=== PATIENT | male | born 1955 | race Caucasian/White ===

== ENCOUNTER 2017-12-08 09:09 | Emergency (ER) | payer MEDICARE, MEDICAID ==
[2017-12-08 10:38] LABS: #Eosinphils 0.4 thou/uL (0.0-0.7); #Lymphocytes 2.1 thou/uL (1.20-3.40); #Monocytes 0.9 thou/uL (0.11-0.59); #Neutrophils 11.1 thou/uL (1.40-6.50); %Basophils 0.3 % (0.0-1.0); %Eosinophils 2.9 % (0.0-10.0); %Lymphocytes 14.3 % (21.0-51.0); %Monocytes 6.4 % (0.0-10.0); %Neutrophils 76.1 % (42.0-75.0); Hemoglobin 11.9 g/dL (14.0-18.0); Mean Corpuscular Hemoglobin 29.3 pg (27.0-31.0); Mean Corpuscular Volume 86.1 fl (80.0-94.0); Mean Platelet Volume 6.9 fL (7.4-10.4); Platelet Count 354 thou/uL (130-400); RBC Distribution Width 12.5 % (11.5-14.5); Red Blood Cell (RBC) Count 4.07 mill/uL (4.70-6.10); White Blood Cell (WBC) Count 14.6 thou/uL (4.8-10.8)
[2017-12-08 11:00] LABS: ALT (SGPT) 22 U/L (8-55); AST (SGOT) 18 U/L (5-34); Alkaline Phosphatase 94 U/L (40-150); Anion Gap 14 mmol/L (10-20); BUN (Urea Nitrogen) 14 mg/dL (8.4-25.7); Bilirubin, Total 0.2 mg/dL (0.2-1.2); Calc. Creatinine Clearance 0 mL/min (70-130); Calcium 9.5 mg/dL (7.8-10.44); Carbon Dioxide 23 mmol/L (23-31); Chloride 104 mmol/L (98-107); Estimated GFR-MDRD Greater than 90; Globulin 3.8 g/dL (2.4-3.5); Glucose 114 mg/dL (80-115); Potassium 4.4 mmol/L (3.5-5.1); Protein, Total 7.8 g/dL (5.8-8.1); Sodium 137 mmol/L (136-145)
[2017-12-08 11:09] LABS: INR-International Normal Ratio 1.1
--- NOTE | 2017-12-08 12:00 | RAD ---
LEFT FOOT THREE VIEWS: HISTORY: Evaluate wound. Erythema and swelling. COMPARISON: 11/09/2016 FINDINGS: There is a solitary screw traversing the first interphalangeal joint space. No obvious perihardware lucency. However, there does appear to be soft tissue swelling. No obvious cortical irregularity. Lisfranc alignment is maintained. Joint space is preserved. Stable hyperdensity partaking over the proximal fourth metatarsal. Foreign body cannot be excluded. IMPRESSION: 1. Uncomplicated surgical change involving the first digit. 2. Soft tissue swelling involving the first digit. Correlate for cellulitis. POS: [facility]
== END 2017-12-08 13:10 | disposition home or self-care (01) ==
LOC: ERS 09:09
DX: E11.628 Type 2 diabetes mellitus with other skin complications (principal); L03.032 Cellulitis of left toe; E78.5 Hyperlipidemia, unspecified; I10 Essential (primary) hypertension
CPT/HCPCS: 36415; 80053; 85025; 85610; 87040; 87149

== ENCOUNTER 2018-03-05 18:37 | Inpatient (IN) | payer MEDICARE, MEDICAID ==
[2018-03-05 19:28] LABS: #Basophils 0.1 thou/uL (0.0-0.2); #Eosinphils 0.3 thou/uL (0.0-0.7); #Lymphocytes 2.9 thou/uL (1.20-3.40); %Basophils 0.4 % (0.0-1.0); %Eosinophils 2.4 % (0.0-10.0); %Lymphocytes 21.8 % (21.0-51.0); %Monocytes 7.5 % (0.0-10.0); %Neutrophils 67.9 % (42.0-75.0); Hemoglobin 11.2 g/dL (14.0-18.0); Mean Corpuscular HGB CONC 34.7 g/dL (32.0-36.0); Mean Corpuscular Volume 86.5 fl (80.0-94.0); Mean Platelet Volume 6.9 fL (7.4-10.4); Platelet Count 342 thou/uL (130-400); Red Blood Cell (RBC) Count 3.71 mill/uL (4.70-6.10); White Blood Cell (WBC) Count 13.3 thou/uL (4.8-10.8)
[2018-03-05] MEDS ORDERED: MEROPENEM 1 GM/50 ML 1 GM in Premix Bag 1 BAG IVPB SCH (19:30)
--- NOTE | 2018-03-05 19:48 | RAD ---
RIGHT FOOT: 03/05/18 Three views. INDICATIONS: Right great toe pain. Post right great toe amputation. Amputation of the right great toe is seen from the proximal aspect of the proximal phalanx. No osseou s abnormality identified. There is no osseous erosions seen that would indicate osteomyelitis. Soft t issues appear unremarkable. IMPRESSION: No acute abnormality identified. POS: [facility]
[2018-03-05 19:49] LABS: ALT (SGPT) 25 U/L (8-55); AST (SGOT) 12 U/L (5-34); Alkaline Phosphatase 87 U/L (40-150); Anion Gap 11 mmol/L (10-20); BUN (Urea Nitrogen) 16 mg/dL (8.4-25.7); Bilirubin, Total 0.2 mg/dL (0.2-1.2); Calc. Creatinine Clearance 0 mL/min (70-130); Calcium 9.3 mg/dL (7.8-10.44); Carbon Dioxide 24 mmol/L (23-31); Chloride 104 mmol/L (98-107); Estimated GFR-MDRD Greater than 90; Globulin 3.6 g/dL (2.4-3.5); Glucose 171 mg/dL (80-115); Potassium 4.3 mmol/L (3.5-5.1); Protein, Total 7.6 g/dL (5.8-8.1); Sodium 135 mmol/L (136-145)
[2018-03-05 21:08] VITALS: BMI 37.4
[2018-03-06] MEDS ORDERED: Ondansetron HCl/PF 4 MG/2 ML Vial IVP PRN ×2 (03:16→10:56)
[2018-03-06] MEDS ORDERED: Ondansetron ODT 4 MG TAB SL PRN ×2 (03:16→10:56)
[2018-03-06] MEDS ORDERED: Sodium Chloride 0.9% 1,000 ML IV SCH (03:16)
[2018-03-06] MEDS ORDERED: MEROPENEM 1 GM/50 ML 1 GM in Premix Bag 1 BAG IVPB SCH (04:00)
[2018-03-06] MEDS ORDERED: Dextrose 50% Abboject 50 ML SYRINGE IVP PRN (10:57)
[2018-03-06] MEDS ORDERED: Dextrose 5% in Water 1,000 ML IV PRN (10:57)
--- NOTE | 2018-03-06 11:49 | HP ---
DATE OF ADMISSION: 03/05/2018 CHIEF COMPLAINT: Erythema of the right foot. HISTORY OF PRESENT ILLNESS: This is a 62-year-old mentally retarded male patient of Dr. Devon almanzar who resides at [facility], has been there for over 10 years. Patient melton d an amputation of his right great toe in 12/2015. Since that time, he has had a couple of bouts of erythema over the remainder toes, but has been treated with antibiotics solely. He had an admission for such in 2016. It was noted this weekend by the nurses on the floor to have a return of the eryth felicity and more swelling of the foot. The patient's diabetic neuropathy impedes his sensation to pain t o the area. They have noted no fever or drainage from the area. 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 PAST SURGICAL HISTORY: Positive for right great toe amputation in 2015, carpal tunnel repair in 2010 , right inguinal herniorrhaphy in 2004. ALLERGIES: There are no known drug allergies. MEDICATIONS: Levemir 100 units in the morning and 120 units at night, NovoLog sliding scale, metform in 1000 mg b.i.d., Januvia 100 mg daily, lisinopril 20 mg daily, Lipitor 20 mg daily, Prilosec 20 mg daily, Flomax 0.4 mg daily and he also takes B12 100 mcg daily. FAMILY HISTORY: Essentially is unknown. Both his parents have passed. He has 3 brothers and 2 sist ers that are alive per the office note, but the patient has poor knowledge. SOCIAL HISTORY: He lives at [facility]. No toxic habits. All immunizations are up to date. REVIEW OF SYSTEMS: There is no evidence of fever or chills and he denies any headache or visual shaw ges, no troubles chewing or swallowing. No chest pain, shortness of breath, no cough. No nausea or vomiting, no abdominal pain, denies any changes in bowel or bladder habits. No diarrhea, constipatio n, no dysuria or hematuria. Denies any new paresthesias. Denies any paresis. Denies any auditory o r visual hallucinations. Denies any suicidal or homicidal ideations. PHYSICAL EXAMINATION: GENERAL: He is comfortable in bed. He is very pleasant and cooperative. VITAL SIGNS: Temperature 97.7, pulse 73, respirations 18, blood pressure is 124/72. HEENT: Shows a normocephalic, atraumatic cranium with pupils that are equal, round, and reactive to light and accommodation. Extraocular movements are intact. Mucous membranes are moist. NECK: Supple, no JVD, no bruits, no thyromegaly. HEART: S1, S2, with no rubs, murmurs, or gallops. LUNGS: Clear to auscultation bilaterally, no rales, rhonchi or wheezes. ABDOMEN: Obese, soft, nontender, nondistended, no palpable masses, no hepatosplenomegaly. Bowel araceli nds are hypoactive. GENITOURINARY: Exam is deferred. EXTREMITIES: Able to move all extremities. Poor movement of the toes on the right foot; however, pu lses are palpable, x4. There is slight erythema to the right foot, especially at the base of the sec ond, third, and fourth toes with some edema accompanying that there is no drainage to the previous mckeon rgical scar of his right amputation, still has some crusty healing to it. The left foot has some chr onic ulcerations to the great toe. Neurologically, he has poor sensation in both legs below the calf . NEUROLOGIC: Cranial nerves II-XII are equal and symmetrical. No motor deficits noted. LABORATORY DATA AND X-RAY FINDINGS: White count is elevated at 13.3 with an H&H of 11 and 32 respect ively, 342,000 platelets. Sodium 135, potassium 4.3, chloride 104, bicarbonate is 24, BUN 16, creati nine 0.67, glucose of 171. The GFR is greater than 90. Liver functions are within normal limits. C RP is elevated at 4.18. Foot x-ray shows no fractures, but looks like osseous erosions consistent wi th osteomyelitis beginning. ASSESSMENT AND PLAN: Plan is to admit due to the erythema, peripheral arterial disease and osteomyel itis, likely continue antibiotics that were started in the emergency room. We will get an MRI in [facility] and go for a decision on surgical consult after those are resulted.
[2018-03-06] MEDS: MEROPENEM 1 GM/50 ML 1 GM in Premix Bag 1 BAG IVPB SCH ×2 (12:24→20:24)
[2018-03-06] MEDS: HumaLOG 300 UNITS/3 ML VIAL SC PRN ×2 (12:27→17:12)
--- NOTE | 2018-03-06 12:50 | MRI ---
RIGHT FOOT MRI WITH AND WITHOUT IV CONTRAST: Date: 03/06/18 HISTORY: 62-year-old male with history of infected right foot, diabetic cellulitis, nonhealing ulcer. Concern for right great toe. FINDINGS: The patient has undergone amputation of the right great toe at the level of the base of the proximal phalanx. There is some heterogeneous signal within the soft tissues around the great toe distally and also on the plantar aspect. No evidence for abnormal marrow signal to suggest osteomyelitis. No evid ence for focal drainable abscess. There are some arthrosis changes at the first metatarsophalangeal j oint. The flexor hallucis tendon is thickened and has some increased signal probably related to the p rior amputation. Intrinsic foot muscles show considerable muscle volume loss. IMPRESSION: Amputation of the great toe at the level of the base of the proximal phalanx with some altered soft t issue changes of the distal amputation site and the plantar surface at the first metatarsophalangeal joint region. No evidence for drainable abscess. No osteomyelitis. POS: [facility]
[2018-03-06] MEDS: Tamsulosin HCl 0.4 MG CAP PO SCH (17:12)
[2018-03-06] MEDS: Atorvastatin Calcium 20 MG TAB PO SCH (20:24)
[2018-03-06] MEDS: Insulin Glargine 100 UNITS in Pre-Filled Syringe 1 EACH SC SCH (20:24)
[2018-03-07] MEDS: MEROPENEM 1 GM/50 ML 1 GM in Premix Bag 1 BAG IVPB SCH ×3 (03:32→20:31)
[2018-03-07 04:44] LABS: #Eosinphils 0.4 thou/uL (0.0-0.7); #Monocytes 0.9 thou/uL (0.11-0.59); #Neutrophils 7.1 thou/uL (1.40-6.50); %Basophils 0.4 % (0.0-1.0); %Eosinophils 3.2 % (0.0-10.0); %Lymphocytes 26.6 % (21.0-51.0); %Monocytes 8.1 % (0.0-10.0); %Neutrophils 61.7 % (42.0-75.0); Hemoglobin 12.1 g/dL (14.0-18.0); Mean Corpuscular HGB CONC 34.1 g/dL (32.0-36.0); Mean Corpuscular Hemoglobin 29.5 pg (27.0-31.0); Mean Corpuscular Volume 86.7 fl (80.0-94.0); Mean Platelet Volume 6.8 fL (7.4-10.4); Platelet Count 369 thou/uL (130-400); RBC Distribution Width 11.9 % (11.5-14.5); White Blood Cell (WBC) Count 11.4 thou/uL (4.8-10.8)
[2018-03-07 04:46] LABS: Anion Gap 12 mmol/L (10-20); BUN (Urea Nitrogen) 15 mg/dL (8.4-25.7); Calc. Creatinine Clearance 143 mL/min (70-130); Calcium 9.4 mg/dL (7.8-10.44); Carbon Dioxide 27 mmol/L (23-31); Chloride 103 mmol/L (98-107); Estimated GFR-MDRD Greater than 90; Glucose 177 mg/dL (80-115); Sodium 138 mmol/L (136-145)
[2018-03-07] MEDS: HumaLOG 300 UNITS/3 ML VIAL SC PRN ×4 (05:29→20:34)
--- NOTE | 2018-03-07 08:35 | PRG ---
DATE OF SERVICE: 03/07/2018 SUBJECTIVE: The patient denies pain. No fevers or chills. He states that there is some improvement in the redness of his foot. He states that he has not seen Dr. Israel in several months. OBJECTIVE: VITAL SIGNS: Temperature 97.3, pulse of 75-100, respirations 20, blood pressure 145/75, pulse oximet ry is 95% on room air. GENERAL: He is awake and alert, in no acute distress. Speech is clear. NECK: Supple. HEART: Regular rate and rhythm. LUNGS: Clear. ABDOMEN: Obese, soft, nontender, nondistended. EXTREMITIES: Right foot, status post great toe amputation with redness on the dorsum of the foot. H e does have induration and redness and granulation tissue of the wound on his right foot, left foot w ith some scabbing over a callus of his left great toe. LABORATORY DATA: White blood cell count 11.4, hemoglobin and hematocrit 12.1 and 35.5, platelets of 369. Accu-Cheks of 177, 229, 256. Lower extremity MRI of the soft tissue changes around the distal right foot, but no signs of osteomyelitis. ASSESSMENT AND PLAN: 1. This is a 62-year-old gentleman with uncontrolled type 2 diabetes due to noncompliance, now with right foot cellulitis. We will continue broad spectrum antibiotics, awaiting blood cultures. Consul t Dr. Israel for evaluation. 2. Type 2 diabetes. We will continue to increase his insulin as well as oral medications.
[2018-03-07] MEDS: Insulin Glargine 120 UNITS in Pre-Filled Syringe 1 EACH SC SCH (09:05)
[2018-03-07] MEDS: Lisinopril 20 MG TAB PO SCH (09:05)
[2018-03-07] MEDS: Cyanocobalamin (Vitamin B-12) 1,000 MCG TAB PO SCH (09:06)
[2018-03-07] MEDS: Tamsulosin HCl 0.4 MG CAP PO SCH (17:01)
[2018-03-07] MEDS: Atorvastatin Calcium 20 MG TAB PO SCH (20:31)
[2018-03-07] MEDS: Insulin Glargine 100 UNITS in Pre-Filled Syringe 1 EACH SC SCH (20:32)
[2018-03-08] MEDS: MEROPENEM 1 GM/50 ML 1 GM in Premix Bag 1 BAG IVPB SCH (04:12)
[2018-03-08 05:12] LABS: #Eosinphils 0.5 thou/uL (0.0-0.7); #Lymphocytes 2.6 thou/uL (1.20-3.40); #Monocytes 0.9 thou/uL (0.11-0.59); #Neutrophils 8.4 thou/uL (1.40-6.50); %Basophils 0.3 % (0.0-1.0); %Eosinophils 3.9 % (0.0-10.0); %Neutrophils 67.9 % (42.0-75.0); Hemoglobin 12.4 g/dL (14.0-18.0); Mean Corpuscular HGB CONC 33.7 g/dL (32.0-36.0); Mean Corpuscular Hemoglobin 29.2 pg (27.0-31.0); Mean Corpuscular Volume 86.6 fl (80.0-94.0); Mean Platelet Volume 7.1 fL (7.4-10.4); Platelet Count 390 thou/uL (130-400); RBC Distribution Width 11.9 % (11.5-14.5); Red Blood Cell (RBC) Count 4.24 mill/uL (4.70-6.10); White Blood Cell (WBC) Count 12.3 thou/uL (4.8-10.8)
[2018-03-08 07:49] VITALS: BP 152/88; TEMP 98.2
[2018-03-08] MEDS: Cyanocobalamin (Vitamin B-12) 1,000 MCG TAB PO SCH (09:09)
[2018-03-08] MEDS: Lisinopril 20 MG TAB PO SCH (09:13)
--- NOTE | 2018-03-08 09:30 | CON ---
DATE OF CONSULTATION: 03/08/2018 PRIMARY CARE PHYSICIAN: Dr. Raphael Forbes REASON FOR CONSULTATION: Infected right foot ulceration with cellulitis. HISTORY OF PRESENT ILLNESS: The patient is a 62-year-old male who resides at [facility] in [place], [place], was recently admitted over the weekend for cellulitis with open wounds on the plan tar aspect of the right foot. The patient is currently on IV antibiotics per primary care physician. PAST MEDICAL HISTORY: Remarkable for diabetes, hypertension, hyperlipidemia, history of diverticulos is, history of sepsis and cataracts. MEDICATIONS: Medications were noted in chart. ALLERGIES: No drug allergies. SOCIAL HISTORY: Denies alcohol or tobacco use. PAST SURGICAL HISTORY: Includes amputation of the right great toe, hernia repair, colonoscopy, carpa l tunnel repair, and left foot surgery, arthrodesis, left great toe. FAMILY HISTORY: Remarkable for diabetes. REVIEW OF SYSTEMS: Noted in chart. PHYSICAL EXAMINATION: GENERAL: Patient is alert and oriented x3, no acute distress, resting well. VITAL SIGNS: Stable. VASCULAR STATUS: Dorsalis pedis 2/4 left, 2/4 right. Posterior tibial pulses 2/4 bilaterally. Cap fill time less than 3 seconds digits to both feet. There are no ischemic changes evident in bilatera l lower extremities. No edema noted bilateral lower extremities. NEURO: Neurologically protective threshold is diminished utilizing 5.07 Lufkin-Mel monofilamen t wire. Decreased sharp dull sensation to the forefeet bilaterally. Reduced proprioception, protect wesly threshold with the monofilament wire is significantly reduced. Deep tendon reflexes to the gray lar and Achilles tendon were intact bilaterally. MUSCULOSKELETAL: Shows good range of motion of the ankle, subtalar and midtarsal joints pain free, 5 /5 muscle grading, ambulatory, no digital contractures noted at this time. Amputation of right great toe with healed stump. DERMATOLOGY: Dermatologically, there is an open approximately 3 x 1 cm hematoma type neuropathic ulc eration on the first MPJ of the right foot. Upon debridement of loose hyperkeratoric overlying dry h ematoma blister debris, an ulceration extending to the subcutaneous tissue was noted with a fibrotic granular base, good viable bleeding. No signs of infection, no pain. Minimal serous drainage. Ther e was no tunneling to deeper tissue noted. There was mild undermining noted to the peripheral margin s of the ulcer secondary to callus formation. There is minimal cellulitis to the adjacent skin of th e ulcer on the plantar foot, but none noted on the dorsal aspect of the right foot at this time as do cumented when first admitted into the hospital. ASSESSMENT AND PLAN: Diabetic neuropathic ulceration plantar right foot, diabetes with neuropathy. Hallux amputation, right foot. The plan was discussed with Dr. Forbes who was in the room present at the time of my visit. I debr ided and pared all nonviable dry hematoma callus debris under sterile conditions on the ulcer, planta r right foot. The debridement was down to subcutaneous tissue and good viable bleeding. Excisional debridement was performed with sterile 15 blade as stated, the wound was then cleansed extensively wi th normal saline solution and dressed with sterile dressing bandages. Dr. Forbes and I decided stefania t since the cellulitis to the right foot is minimal to zero at this time, the patient can be discharg ed on oral Cleocin which will be written by Dr. Forbes. Orders today on my part for a cam walking boot to offload the right foot at all times weightbearing. Dispense cam walking boot. Wound care or ders were also started for the patient to have performed daily until healed on the right foot to cons ist of cleanse with normal saline solution or wound cleanser, apply hydrogel and sterile gauze dressi ngs daily until healed per senior living. The patient will be followed up at the [facility]. The hospital was instructed to call me p.r.n. any questions regarding today's visit.
[2018-03-08] MEDS: Insulin Glargine 120 UNITS in Pre-Filled Syringe 1 EACH SC SCH (09:59)
--- NOTE | 2018-03-08 10:33 | DIS ---
DATE OF ADMISSION: 03/05/2018 DATE OF DISCHARGE: 03/08/2018 ADMISSION DIAGNOSIS: Right foot cellulitis. DISCHARGE DIAGNOSES: Right foot cellulitis, improved; no osteomyelitis. CONSULTATIONS: Dr. Israel per Podiatry. PROCEDURES: Debridement of right foot, IV antibiotics. HOSPITAL COURSE: This is a 62-year-old gentleman with moderate mental retardation with poorly contro lled type 2 diabetes, peripheral vascular disease, history of foot infections who presented to the em ergency department with worsening redness and swelling of his right foot. He does have a history of diabetic neuropathy. He was admitted and started on broad spectrum antibiotics and had significant i mprovement during his hospitalization. X-ray showed no fractures, but possibly osseous erosions. MR I of his foot was done, which revealed no signs of osteomyelitis, but only soft tissue changes. Clin ically, the erythema and swelling continued to improve. His white blood cell count decreased during his hospitalization and his sugars maintained in good condition. He was seen by Dr. Israel who adan rided the right foot wound and said the base looked good with no sign of abscess. The patient was st able for discharge on the day of discharge. DISCHARGE PHYSICAL EXAMINATION: VITAL SIGNS: Temperature 98.2, pulse of 78, respirations 20, blood pressure 152/88, pulse ox is 94% on room air. GENERAL: He is awake and alert, in no acute distress. Speech is clear. HEENT: Mucosa is moist. NECK: Supple. HEART: Regular rate and rhythm. LUNGS: Clear. ABDOMEN: Soft. EXTREMITIES: Right foot with clean edges to his incision, erythema is decreased on his whole foot. No swelling. Left foot with callus on the left great toe. LABORATORY DATA: Blood cultures are negative. White blood cell count is 12,300, hemoglobin and bassam tocrit are 12.4 and 36.8, platelets of 319. DISCHARGE MEDICATIONS: Include Lipitor 20 mg daily, insulin 120 units b.i.d., Humalog sliding scale, lisinopril 20 mg daily, clindamycin 300 mg b.i.d., Protonix 40 mg daily, Flomax 0.4 mg daily. FOLLOWUP INSTRUCTIONS: Patient to follow up in my office in 2-3 weeks.
== END 2018-03-08 11:07 | DRG 623 ==
LOC: ERS 18:37 → T4-B 20:47
PROVIDERS: ADMIT Family Medicine; ATTEND Family Medicine
PROC: 0JBQ0ZZ Excision of Right Foot Subcutaneous Tissue and Fascia, Open Approach (ICD-10-PCS; principal; 2018-03-08)
DX: E11.621 Type 2 diabetes mellitus with foot ulcer (principal); L03.115 Cellulitis of right lower limb; L97.419 Non-pressure chronic ulcer of right heel and midfoot with unspecified severity; F79 Unspecified intellectual disabilities; Z89.411 Acquired absence of right great toe; E11.42 Type 2 diabetes mellitus with diabetic polyneuropathy; Z79.4 Long term (current) use of insulin; G40.909 Epilepsy, unspecified, not intractable, without status epilepticus; K21.9 Gastro-esophageal reflux disease without esophagitis; I10 Essential (primary) hypertension; N40.0 Benign prostatic hyperplasia without lower urinary tract symptoms; H49.02 Third [oculomotor] nerve palsy, left eye; E11.65 Type 2 diabetes mellitus with hyperglycemia; Z91.19 Patient's noncompliance with other medical treatment and regimen
CPT/HCPCS: 36415; 36416; 80048; 80053; 85025; 85652; 86140; 87040; 96365; 96375; A4216; J2185; J3370

== ENCOUNTER 2018-08-15 18:48 | Emergency (ER) | payer MEDICARE, OTHER ==
[2018-08-15 19:36] LABS: #Basophils 0.1 thou/uL (0.0-0.2); #Eosinphils 0.3 thou/uL (0.0-0.7); #Lymphocytes 2.7 thou/uL (1.20-3.40); #Monocytes 0.8 thou/uL (0.11-0.59); #Neutrophils 7.4 thou/uL (1.40-6.50); %Basophils 0.6 % (0.0-1.0); %Eosinophils 2.3 % (0.0-10.0); %Lymphocytes 24.2 % (21.0-51.0); %Neutrophils 65.9 % (42.0-75.0); Hemoglobin 12.2 g/dL (14.0-18.0); Mean Corpuscular HGB CONC 33.4 g/dL (32.0-36.0); Mean Corpuscular Hemoglobin 29.6 pg (27.0-31.0); Mean Corpuscular Volume 88.7 fL (78.0-98.0); Mean Platelet Volume 7.4 fL (7.4-10.4); Platelet Count 342 thou/uL (130-400); RBC Distribution Width 12.6 % (11.5-14.5); Red Blood Cell (RBC) Count 4.11 mill/uL (4.70-6.10); White Blood Cell (WBC) Count 11.2 thou/uL (4.8-10.8)
[2018-08-15 19:52] LABS: Bilirubin Negative (Negative); Blood, Urine Negative (Negative); Clarity CLEAR (Clear); Glucose, Urine (Dipstick) 250 mg/dL (Negative); Leukocyte Negative (Negative); Nitrite Negative (Negative); Protein, Urine (Dipstick) 100 mg/dL (Neg-Trace); Specific Gravity, Urine 1.011 (1.002-1.036)
[2018-08-15 19:54] LABS: Bacteria/HPF None Seen HPF (None Seen); Hyaline Casts/LPF 0-3 HYALINE CAST LPF (0-3 Hyaline); RBC/HPF 0-3 HPF (0-3); Squamous Epithelial None Seen HPF (0-3); WBC/HPF None Seen HPF (0-3)
[2018-08-15 20:00] LABS: ALT (SGPT) 38 U/L (8-55); AST (SGOT) 20 U/L (5-34); Albumin 4.1 g/dL (3.4-4.8); Alkaline Phosphatase 85 U/L (40-150); Anion Gap 13 mmol/L (10-20); BUN (Urea Nitrogen) 12 mg/dL (8.4-25.7); Bilirubin, Total 0.3 mg/dL (0.2-1.2); Calc. Creatinine Clearance 0 mL/min (70-130); Calcium 9.4 mg/dL (7.8-10.44); Carbon Dioxide 25 mmol/L (23-31); Chloride 103 mmol/L (98-107); Estimated GFR-MDRD Greater than 90; Globulin 3.5 g/dL (2.4-3.5); Glucose 207 mg/dL (80-115); Potassium 4.8 mmol/L (3.5-5.1); Protein, Total 7.6 g/dL (5.8-8.1); Sodium 136 mmol/L (136-145)
[2018-08-15 20:01] LABS: Troponin I Less than 0.010 ng/mL (< 0.028)
[2018-08-15 20:02] LABS: CKMB 7.5 ng/mL (0-6.6)
--- NOTE | 2018-08-15 20:04 | RAD ---
AP VIEW CHEST: 08/15/2018 HISTORY: Tachycardia. COMPARISON: 09/10/2013 FINDINGS: AP view chest demonstrates mild dextroscoliosis. Minimal cardiomegaly and pulmonary vascular congest ion are seen. No evidence of effusions, pneumonia, or pneumothorax is seen. IMPRESSION: Mild pulmonary vascular congestion. No evidence of acute intrathoracic abnormality seen. POS: [facility]
[2018-08-15 22:31] LABS: CKMB 6.5 ng/mL (0-6.6)
== END 2018-08-15 23:35 ==
LOC: ERS 18:48
DX: R00.0 Tachycardia, unspecified (principal); E11.9 Type 2 diabetes mellitus without complications; I10 Essential (primary) hypertension; E78.5 Hyperlipidemia, unspecified; Z79.899 Other long term (current) drug therapy; Z79.82 Long term (current) use of aspirin; Z79.4 Long term (current) use of insulin
CPT/HCPCS: 36415; 71045; 80053; 81003; 81015; 82553; 84484; 85025; 93005

== ENCOUNTER 2018-09-29 19:52 | Observation (INO) | payer MEDICARE, MEDICAID ==
[~2018-09-29 19:52] MED LIST: ISOVUE-370 76%-LOCM 1 ML ONE
[2018-09-29] MEDS ORDERED: Ondansetron PF 4 MG/2 ML Vial ONE (20:19)
[2018-09-29 20:42] LABS: Hemoglobin 13.8 g/dL (14.0-18.0); Mean Corpuscular HGB CONC 34.1 g/dL (32.0-36.0); Mean Corpuscular Hemoglobin 29.5 pg (27.0-31.0); Mean Corpuscular Volume 86.6 fL (78.0-98.0); Mean Platelet Volume 7.2 fL (7.4-10.4); Platelet Count 415 thou/uL (130-400); RBC Distribution Width 12.6 % (11.5-14.5); Red Blood Cell (RBC) Count 4.66 mill/uL (4.70-6.10); White Blood Cell (WBC) Count 21.2 thou/uL (4.8-10.8)
[2018-09-29 21:00] LABS: Band 11 % (5-11); Hypochromia SLIGHT = 6-15 cells (100X) (0-5/hpf); Lymphocytes 5 % (21-51); MDiff Complete? YES; Monocytes 2 % (0-10); Neutrophil 82 % (42-75); PLT Morphology Comment Appears Increased
[2018-09-29 21:09] LABS: ALT (SGPT) 28 U/L (8-55); AST (SGOT) 13 U/L (5-34); Albumin 4.2 g/dL (3.4-4.8); Alkaline Phosphatase 101 U/L (40-150); Anion Gap 14 mmol/L (10-20); BUN (Urea Nitrogen) 25 mg/dL (8.4-25.7); Bilirubin, Total 0.4 mg/dL (0.2-1.2); Calc. Creatinine Clearance 0 mL/min (70-130); Calcium 8.9 mg/dL (7.8-10.44); Carbon Dioxide 23 mmol/L (23-31); Chloride 106 mmol/L (98-107); Estimated GFR-MDRD Greater than 90; Globulin 3.9 g/dL (2.4-3.5); Glucose 142 mg/dL (80-115); Protein, Total 8.1 g/dL (5.8-8.1); Sodium 139 mmol/L (136-145)
[2018-09-29 21:35] LABS: Bilirubin Negative (Negative); Blood, Urine Negative (Negative); Clarity CLEAR (Clear); Glucose, Urine (Dipstick) Negative (Negative); Leukocyte Negative (Negative); Nitrite Negative (Negative); Protein, Urine (Dipstick) 100 mg/dL (Neg-Trace); Specific Gravity, Urine 1.022 (1.002-1.036)
[2018-09-29 21:37] LABS: Bacteria/HPF None Seen HPF (None Seen); Hyaline Casts/LPF 0-3 HYALINE CAST LPF (0-3 Hyaline); Pathc Cast-AUWi Flag 0.58 (0-2.49); RBC/HPF 0-3 HPF (0-3); Squamous Epithelial None Seen HPF (0-3); WBC/HPF None Seen HPF (0-3)
--- NOTE | 2018-09-29 21:47 | RAD ---
SINGLE VIEW OF THE CHEST: 09/29/18 COMPARISON: 08/15/18 HISTORY: Vomiting and weakness. FINDINGS: Single view of the chest shows a normal sized cardiomediastinal silhouette. There is no evidence of c onsolidation, mass, or pleural effusion. The bones are unremarkable. IMPRESSION: No evidence of acute cardiopulmonary disease. POS: [facility]
--- NOTE | 2018-09-29 21:51 | CT ---
CT OF THE ABDOMEN AND PELVIS WITH CONTRAST: 09/29/18 COMPARISON: None. HISTORY: Crampy abdominal pain. TECHNIQUE: Multiple contiguous axial images were obtained in a CTA of the abdomen and pelvis with contrast. William nal reformats were performed. FINDINGS: The liver, gallbladder, left kidney, adrenal glands, spleen, and pancreas are unremarkable. A 2.3 cm hypodensity in the right kidney represents a cyst. The large and small bowel are unremarkable. No abdominal or pelvic lymphadenopathy are seen. Atherosc lerotic calcifications are seen in the aorta. Degenerative changes are seen in the spine. There is st randing in the lower abdominal wall. The visualized inferior thorax is unremarkable. IMPRESSION: No evidence of acute intra-abdominal/pelvic abnormality. POS: [facility]
[2018-09-29 23:30] VITALS: BMI 33.7
[2018-09-29] MEDS ORDERED: Acetaminophen 325 MG TAB PO PRN (23:34)
[2018-09-29] MEDS ORDERED: Ondansetron PF 4 MG/2 ML Vial IVP PRN (23:34)
[2018-09-29] MEDS ORDERED: Ondansetron ODT 4 MG TAB SL PRN (23:34)
[2018-09-30] MEDS: Sodium Chloride 0.9% 1,000 ML IV SCH ×2 (00:05→07:32)
[2018-09-30] MEDS ORDERED: INSULIN DETEMIR SC SCH (09:00)
[2018-09-30] MEDS ORDERED: Ondansetron ODT 4 MG TAB PO PRN (09:09)
[2018-09-30] MEDS: Alogliptin 25 MG TAB PO SCH (09:24)
[2018-09-30] MEDS: Finasteride 5 MG TAB PO SCH (09:24)
[2018-09-30] MEDS: Tamsulosin HCl 0.4 MG CAP PO SCH (09:24)
[2018-09-30] MEDS: Calcium Carbonate 500 MG ChewTAB PO SCH ×5 (09:24→19:33)
[2018-09-30] MEDS: Cyanocobalamin (Vitamin B-12) 1,000 MCG TAB PO SCH (09:25)
[2018-09-30] MEDS: Multivit, Therapeutic 1 TAB PO SCH (09:25)
[2018-09-30] MEDS: Loratadine 10 MG TAB PO SCH (09:25)
[2018-09-30] MEDS: Lisinopril 20 MG TAB PO SCH (09:25)
[2018-09-30] MEDS: Aspirin 81 mg Enteric Coated Tablet PO SCH (09:25)
[2018-09-30 09:28] LABS: ALT (SGPT) 23 U/L (8-55); AST (SGOT) 10 U/L (5-34); Albumin 3.6 g/dL (3.4-4.8); Alkaline Phosphatase 77 U/L (40-150); Anion Gap 14 mmol/L (10-20); BUN (Urea Nitrogen) 24 mg/dL (8.4-25.7); Bilirubin, Total 0.6 mg/dL (0.2-1.2); Calc. Creatinine Clearance 125 mL/min (70-130); Calcium 8.1 mg/dL (7.8-10.44); Carbon Dioxide 20 mmol/L (23-31); Chloride 107 mmol/L (98-107); Estimated GFR-MDRD Greater than 90; Globulin 3.5 g/dL (2.4-3.5); Glucose 266 mg/dL (80-115); Potassium 3.5 mmol/L (3.5-5.1); Protein, Total 7.1 g/dL (5.8-8.1); Sodium 137 mmol/L (136-145)
[2018-09-30] MEDS: Metamucil PACK PO SCH (09:31)
[2018-09-30 09:56] LABS: #Basophils 0.1 thou/uL (0.0-0.2); #Eosinphils 0.2 thou/uL (0.0-0.7); #Lymphocytes 2.6 thou/uL (1.20-3.40); #Monocytes 0.8 thou/uL (0.11-0.59); #Neutrophils 6.7 thou/uL (1.40-6.50); %Basophils 0.5 % (0.0-1.0); %Eosinophils 1.9 % (0.0-10.0); %Lymphocytes 24.9 % (21.0-51.0); %Monocytes 7.7 % (0.0-10.0); Hemoglobin 11.6 g/dL (14.0-18.0); Mean Corpuscular HGB CONC 33.2 g/dL (32.0-36.0); Mean Corpuscular Hemoglobin 28.7 pg (27.0-31.0); Mean Corpuscular Volume 86.6 fL (78.0-98.0); Mean Platelet Volume 7.4 fL (7.4-10.4); Platelet Count 373 thou/uL (130-400); RBC Distribution Width 12.5 % (11.5-14.5); Red Blood Cell (RBC) Count 4.05 mill/uL (4.70-6.10); White Blood Cell (WBC) Count 10.3 thou/uL (4.8-10.8)
[2018-09-30] MEDS: Insulin Glargine 50 UNITS in Pre-Filled Syringe 1 EACH SC SCH ×2 (10:48→19:33)
[2018-09-30] MEDS: HumaLOG 300 UNITS/3 ML VIAL SC SCH ×2 (11:44→16:36)
--- NOTE | 2018-09-30 12:11 | HP ---
CHIEF COMPLAINT: Nausea, vomiting, diarrhea, weakness. HISTORY OF PRESENT ILLNESS: This is a 62-year-old gentleman with moderate intellectual disabilities, type 2 diabetes, history of upper GI bleed in the past, presents to the emergency department last night with worsening nausea, vomiting and diarrhea and poor p.o. intake. Per skilled nursing, they state that the patient has had 2 to 3 days of nausea and vomiting with persistent diarrhea. He was becoming more weak and was not taking p.o. well. He was sent to the emergency department for evaluation. In the ED, he was found to be mild to moderately dehydrated, but [place] [id number], blood cultures were obtained. He was not actively appearing septic and antibiotics were not started, and is now being admitted for further evaluation and treatment. PAST MEDICAL HISTORY: Type 2 diabetes, hypertension, hyperlipidemia, intellectual disability, bilateral cataracts, history of GI bleed. PAST SURGICAL HISTORY: Abdominal surgery, carpal tunnel repair bilaterally, amputation of the right first toe and left toe, bilateral cataract removal. SOCIAL HISTORY: He lives at [facility]. No smoking. No alcohol. No drug use. Family is involved. MEDICATIONS: Include, 1. Aspirin 81 mg daily. 2. Lipitor 20 mg daily. 3. Claritin 10 mg daily. 4. Flomax 0.4 mg daily. 5. Glucophage 1000 mg b.i.d. 6. Januvia 100 mg daily. 7. Levemir 100 units at bedtime, 120 units in the morning. 8. Lisinopril 20 mg daily. 9. NovoLog 15 units with meals as needed. 10. Proscar 5 mg daily. 11. Vitamin B12 500 mcg daily. 12. Pantoprazole 40 mg daily. ALLERGIES: NO KNOWN DRUG ALLERGIES. REVIEW OF SYSTEMS: CONSTITUTIONAL: As per this present illness, he denies any recent fevers, chills, or recent illness. HEENT: No headache, visual or hearing changes. No upper respiratory symptoms. CARDIAC: Denies chest pain, shortness of breath or palpitations. PULMONARY: Denies cough or hemoptysis. GASTROINTESTINAL: As per the history of present illness, he admits occasional abdominal cramping. Positive vomiting. Positive diarrhea. No blood in the stool. NEUROLOGIC: No weakness, seizures or syncope. MUSCULOSKELETAL: Positive chronic wrist pain, chronic foot pain. OBJECTIVE: VITAL SIGNS: Temperature 98.3, pulse of 88, respirations 18, blood pressure 115/73, pulse ox is 92% to 95% on room air. GENERAL: He is awake and alert, in no acute distress. HEENT: Mucosa is moist now. NECK: Supple. HEART: Regular rate and rhythm. LUNGS: Clear bilaterally. ABDOMEN: Obese, positive bowel sounds. Soft, nontender, nondistended. No hepatosplenomegaly. EXTREMITIES: No edema. 2+ peripheral pulses bilaterally. LABORATORY DATA: White blood cell count 74072, hemoglobin and hematocrit 13.8 and 40.4, platelets of 415, 82% neutrophils, 11% bands, 5% lymphocytes. Sodium 139, potassium 4.0, chloride 106, CO2 23, BUN and creatinine 25 and 0.67. Serum glucose was 142, lactic acid 1.9. Liver enzymes were normal. Abdominal and pelvic CT performed last night showed no active disease. No abnormalities. Chest x-ray again showed no active disease. ASSESSMENT/PLAN: 1. This is a 62-year-old gentleman with type 2 diabetes, mental disability, skilled nursing resident, now with persistent nausea, vomiting, and diarrhea consistent with gastroenteritis. We will need to rule out Clostridium difficile. We will check stool samples. We will hold off on antibiotics until we have etiology. 2. Leukocytosis. We will recheck his white blood cell count and follow closely. 3. Dehydration, appears to be resolving with IV fluids. 4. Type 2 diabetes. We will continue his oral and injectable medications and monitor closely. Avoiding hypoglycemia. Job ID: [id number]
--- NOTE | 2018-09-30 15:35 | EKG ---
Test Reason : Blood Pressure : / mmHG Vent. Rate : 110 BPM Atrial Rate : 110 BPM P-R Int : 168 ms QRS Dur : 070 ms QT Int : 328 ms P-R-T Axes : 087 -52 067 degrees QTc Int : 443 ms Sinus tachycardia Left axis deviation Inferior infarct , age undetermined Anterior infarct , age undetermined Abnormal ECG Confirmed by JOSE GLEZ ([id number]), design editor ROB JACKSON ([id number]) on 09/30/2018 3:34:59 PM Referred By: Confirmed By:JOSE GLEZ
[2018-09-30] MEDS: metFORMIN 500 MG TAB PO SCH (16:36)
[2018-09-30] MEDS ORDERED: Atorvastatin Calcium 20 MG TAB PO SCH (21:00)
[2018-10-01] MEDS: Calcium Carbonate 500 MG ChewTAB PO SCH ×5 (00:32→12:08)
[2018-10-01 06:56] VITALS: BP 171/76; TEMP 97.9
[2018-10-01 07:31] LABS: #Eosinphils 0.4 thou/uL (0.0-0.7); #Lymphocytes 1.9 thou/uL (1.20-3.40); #Monocytes 0.7 thou/uL (0.11-0.59); #Neutrophils 8.7 thou/uL (1.40-6.50); %Basophils 0.1 % (0.0-1.0); %Eosinophils 3.5 % (0.0-10.0); %Lymphocytes 16.1 % (21.0-51.0); %Monocytes 5.8 % (0.0-10.0); %Neutrophils 74.5 % (42.0-75.0); Hemoglobin 11.8 g/dL (14.0-18.0); Mean Corpuscular HGB CONC 34.3 g/dL (32.0-36.0); Mean Corpuscular Hemoglobin 29.7 pg (27.0-31.0); Mean Corpuscular Volume 86.4 fL (78.0-98.0); Mean Platelet Volume 7.4 fL (7.4-10.4); Platelet Count 341 thou/uL (130-400); RBC Distribution Width 12.3 % (11.5-14.5); Red Blood Cell (RBC) Count 3.98 mill/uL (4.70-6.10); White Blood Cell (WBC) Count 11.7 thou/uL (4.8-10.8)
[2018-10-01 07:54] LABS: ALT (SGPT) 25 U/L (8-55); AST (SGOT) 24 U/L (5-34); Albumin 3.5 g/dL (3.4-4.8); Alkaline Phosphatase 84 U/L (40-150); Anion Gap 13 mmol/L (10-20); BUN (Urea Nitrogen) 9 mg/dL (8.4-25.7); Bilirubin, Total 0.2 mg/dL (0.2-1.2); Calc. Creatinine Clearance 150 mL/min (70-130); Calcium 8.6 mg/dL (7.8-10.44); Carbon Dioxide 21 mmol/L (23-31); Chloride 106 mmol/L (98-107); Estimated GFR-MDRD Greater than 90; Globulin 3.4 g/dL (2.4-3.5); Glucose 177 mg/dL (80-115); Potassium 3.2 mmol/L (3.5-5.1); Protein, Total 6.9 g/dL (5.8-8.1); Sodium 137 mmol/L (136-145)
[2018-10-01] MEDS: Insulin Glargine 50 UNITS in Pre-Filled Syringe 1 EACH SC SCH (08:30)
[2018-10-01] MEDS: Multivit, Therapeutic 1 TAB PO SCH (08:31)
[2018-10-01] MEDS: Finasteride 5 MG TAB PO SCH (08:31)
[2018-10-01] MEDS: Loratadine 10 MG TAB PO SCH (08:31)
[2018-10-01] MEDS: HumaLOG 300 UNITS/3 ML VIAL SC SCH ×2 (08:31→12:09)
[2018-10-01] MEDS: Tamsulosin HCl 0.4 MG CAP PO SCH (08:31)
[2018-10-01] MEDS: Alogliptin 25 MG TAB PO SCH (08:31)
[2018-10-01] MEDS: Lisinopril 20 MG TAB PO SCH (08:32)
[2018-10-01] MEDS: Aspirin 81 mg Enteric Coated Tablet PO SCH (08:32)
[2018-10-01] MEDS: metFORMIN 500 MG TAB PO SCH (08:32)
[2018-10-01] MEDS: Cyanocobalamin (Vitamin B-12) 1,000 MCG TAB PO SCH (08:33)
[2018-10-01] MEDS: Metamucil PACK PO SCH (08:34)
--- NOTE | 2018-10-02 05:37 | DIS ---
DATE OF ADMISSION: 09/29/2018 DATE OF DISCHARGE: 10/01/2018 ADMITTING DIAGNOSES: Gastroenteritis with nausea, vomiting, and diarrhea with dehydration. HOSPITAL COURSE: The patient is a 62-year-old male, patient of Dr. Forbes, who resides at [facility] due to his mental deficiencies. He is mentally retarded. The patient started having nausea and vomiting and excessive diarrhea and was unable to keep anything down. Prescription medicines were unable to restrict the emesis, so he was admitted for IV fluid hydration and further evaluation. His C. diff came back negative. His campylobacter evaluation was negative. E. Coli 157 was negative. He was also checked for flu, which was negative. Blood cultures were negative. He was given IV hydration and kept n.p.o. and then started feeding with attempts of p.o. starting last night. He was taking p.o. very well as of today. His stools have started to return to a normal form type stool and he is taking p.o. without difficulty. Plan is to discharge him back to [facility] today. We will expect Dr. Forbes to have a visit with him in the next week or so for followup. Job ID: [id number]
== END 2018-10-01 14:27 ==
LOC: ERS 19:52 → T4-A 22:00
PROVIDERS: ADMIT Family Medicine; ATTEND Family Medicine
DX: E86.0 Dehydration (principal); K52.9 Noninfective gastroenteritis and colitis, unspecified; F71 Moderate intellectual disabilities; I10 Essential (primary) hypertension; E78.5 Hyperlipidemia, unspecified; E11.9 Type 2 diabetes mellitus without complications; D72.829 Elevated white blood cell count, unspecified; E66.9 Obesity, unspecified; Z68.33 Body mass index [BMI] 33.0-33.9, adult; Z89.411 Acquired absence of right great toe; Z89.412 Acquired absence of left great toe; Z79.82 Long term (current) use of aspirin; Z79.4 Long term (current) use of insulin; Z79.899 Other long term (current) drug therapy; Z98.890 Other specified postprocedural states
CPT/HCPCS: 71045; 74177; 80053 ×3; 82962 ×2; 83605; 83630; 84484; 85025 ×3; 87015; 87040; 87045; 87046; 87206; 87324; 87449 ×2; 87804 ×2; 87899 ×2; 93005; 96361 ×2; 96374; 99285; G0378 ×2; 36415; 36416; 81003; 81015; J2405

== ENCOUNTER 2019-01-21 19:42 | Emergency (ER) | payer MEDICARE, MEDICAID ==
[2019-01-21 20:36] LABS: #Basophils 0.1 thou/uL (0.0-0.2); #Eosinphils 0.1 thou/uL (0.0-0.7); #Monocytes 0.7 thou/uL (0.11-0.59); #Neutrophils 9.7 thou/uL (1.40-6.50); %Basophils 0.5 % (0.0-1.0); %Eosinophils 0.6 % (0.0-10.0); %Lymphocytes 15.9 % (21.0-51.0); %Monocytes 5.9 % (0.0-10.0); %Neutrophils 77.1 % (42.0-75.0); Hemoglobin 12.4 g/dL (14.0-18.0); Mean Corpuscular HGB CONC 33.6 g/dL (32.0-36.0); Mean Corpuscular Hemoglobin 29.5 pg (27.0-31.0); Mean Corpuscular Volume 87.7 fL (78.0-98.0); Mean Platelet Volume 7.4 fL (7.4-10.4); Platelet Count 323 thou/uL (130-400); RBC Distribution Width 12.5 % (11.5-14.5); White Blood Cell (WBC) Count 12.6 thou/uL (4.8-10.8)
[2019-01-21 20:55] LABS: ALT (SGPT) 25 U/L (8-55); AST (SGOT) 10 U/L (5-34); Albumin 4.2 g/dL (3.4-4.8); Alkaline Phosphatase 98 U/L (40-150); Anion Gap 13 mmol/L (10-20); BUN (Urea Nitrogen) 24 mg/dL (8.4-25.7); Bilirubin, Total Less than 0.2 mg/dL (0.2-1.2); Calc. Creatinine Clearance 0 mL/min (70-130); Calcium 9.3 mg/dL (7.8-10.44); Carbon Dioxide 23 mmol/L (23-31); Chloride 107 mmol/L (98-107); Estimated GFR-MDRD Greater than 90; Globulin 3.6 g/dL (2.4-3.5); Glucose 287 mg/dL (80-115); Lipase 42 U/L (8-78); Potassium 3.8 mmol/L (3.5-5.1); Protein, Total 7.8 g/dL (5.8-8.1); Sodium 139 mmol/L (136-145)
[2019-01-21] MEDS ORDERED: Ondansetron PF 4 MG/2 ML Vial ONE (21:07)
[2019-01-21 21:22] LABS: Bilirubin Negative (Negative); Blood, Urine Negative (Negative); Clarity CLEAR (Clear); Glucose, Urine (Dipstick) >=1000 mg/dL (Negative); Leukocyte Negative (Negative); Nitrite Negative (Negative); Protein, Urine (Dipstick) 100 mg/dL (Neg-Trace); Specific Gravity, Urine 1.025 (1.002-1.036); pH, Urine 5.5 (5.0-9.0)
[2019-01-21 21:24] LABS: Bacteria/HPF None Seen HPF (None Seen); Hyaline Casts/LPF 0-3 HYALINE CAST LPF (0-3 Hyaline); Pathc Cast-AUWi Flag 0.27 (0-2.49); RBC/HPF 0-3 HPF (0-3); Squamous Epithelial 0-3 HPF (0-3); WBC/HPF None Seen HPF (0-3)
--- NOTE | 2019-01-21 22:43 | CT ---
CONTRAST ENHANCED CT IMAGES ABDOMEN AND PELVIS 01/21/19 HISTORY: Abdominal pain. Contrast enhanced CT images of the abdomen and pelvis is obtained after administration of IV contras t. Unfortunately oral contrast was not given. This does decrease the sensitivity for detection of pat hology. The lung bases are unremarkable. No evidence of free intraperitoneal air seen. Extensive coronary artery calcifications seen. The liver and spleen are unremarkable. Gallbladder and pancreas are unremarkable. Adrenal glands unremarkable. The right kidney contains a cortical cyst in the upper pole. No other renal parenchymal abnormalities seen. The abdominal aorta contains some atherosclerotic calcifications. The iliac arteries are patent. The SMA, celiac, and SMV are patent. The small bowel is unremarkable. The stomach is distended with a large amount of debris or food within it. Does this patient have gas troparesis or eaten a large amount of food recently? The colon demonstrates no significant amount of stool. There is a left inguinal hernia with fat herniating through it. IMPRESSION: Gastric distention. POS: [facility]
== END 2019-01-21 22:50 | disposition home or self-care (01) ==
LOC: ERS 19:42
DX: R10.13 Epigastric pain (principal); E11.9 Type 2 diabetes mellitus without complications; I10 Essential (primary) hypertension; E78.5 Hyperlipidemia, unspecified
CPT/HCPCS: 74177; 80053; 81003; 81015; 83690; 85025; 96372; 96374; J0500; J2405; Q9966

== ENCOUNTER 2019-02-09 17:33 | Inpatient (IN) | payer MEDICARE, MEDICAID ==
[2019-02-09] MEDS ORDERED: Morphine 4 MG/ML VIAL ONE (18:13)
[2019-02-09] MEDS ORDERED: Ondansetron PF 4 MG/2 ML Vial ONE (18:13)
[2019-02-09 18:24] LABS: Hemoglobin 14.8 g/dL (14.0-18.0); Mean Corpuscular HGB CONC 33.2 g/dL (32.0-36.0); Mean Corpuscular Hemoglobin 29.2 pg (27.0-31.0); Mean Corpuscular Volume 88.1 fL (78.0-98.0); Mean Platelet Volume 7.5 fL (7.4-10.4); Platelet Count 430 thou/uL (130-400); RBC Distribution Width 12.5 % (11.5-14.5); Red Blood Cell (RBC) Count 5.07 mill/uL (4.70-6.10); White Blood Cell (WBC) Count 16.7 thou/uL (4.8-10.8)
--- NOTE | 2019-02-09 18:27 | RAD ---
XR Chest 1 View Portable History: [Nausea and vomiting] Comparison: Radiograph 2018 Findings: Patient is rotated to the left. The lungs are clear. No pneumothorax or effusion. Cardiac s ilhouette and mediastinal contours are within normal limits. No acute osseous abnormality. Impression: No acute intrathoracic abnormality.
[2019-02-09 18:48] LABS: ALT (SGPT) 32 U/L (8-55); AST (SGOT) 11 U/L (5-34); Albumin 4.3 g/dL (3.4-4.8); Alkaline Phosphatase 92 U/L (40-150); Anion Gap 21 mmol/L (10-20); BUN (Urea Nitrogen) 28 mg/dL (8.4-25.7); Bilirubin, Total 0.6 mg/dL (0.2-1.2); Calc. Creatinine Clearance 0 mL/min (70-130); Calcium 9.1 mg/dL (7.8-10.44); Carbon Dioxide 19 mmol/L (23-31); Chloride 102 mmol/L (98-107); Estimated GFR-MDRD 90; Globulin 3.7 g/dL (2.4-3.5); Glucose 276 mg/dL (80-115); Lipase 41 U/L (8-78); Potassium 5.5 mmol/L (3.5-5.1); Sodium 136 mmol/L (136-145)
[2019-02-09 18:53] LABS: Bilirubin Small (Negative); Blood, Urine Negative (Negative); Clarity CLEAR (Clear); Glucose, Urine (Dipstick) 100 mg/dL (Negative); Leukocyte Negative (Negative); Nitrite Negative (Negative); Protein, Urine (Dipstick) 100 mg/dL (Neg-Trace); Specific Gravity, Urine 1.026 (1.002-1.036); Urobilinogen 0.2 mg/dL (0.2-1.0)
[2019-02-09 18:55] LABS: Band 33 % (5-11); Eosinophils 1 % (0-10); Lymphocytes 10 % (21-51); MDiff Complete? YES; Metamyelocyte 2 % (0-0); Monocytes 2 % (0-10); Neutrophil 52 % (42-75); Platelet Morphology Comment Appears Increased
[2019-02-09 18:56] LABS: Bacteria/HPF None Seen HPF (None Seen); Squamous Epithelial 0-3 HPF (0-3); WBC/HPF 0-3 HPF (0-3)
[2019-02-09 19:10] LABS: Hyaline Casts/LPF 4-6 HYALINE CAST LPF (0-3 Hyaline)
[2019-02-09] MEDS ORDERED: Meropenem 2 GM, Admixture Fee 1 EACH in Sodium Chloride 0.9% 100 ML IVPB SCH (19:15)
[2019-02-09 22:31] LABS: Lactic Acid 2.9 mmol/L (0.5-2.2)
[2019-02-09 23:32] VITALS: BMI 34.2
[2019-02-09] MEDS ORDERED: Ondansetron PF 4 MG/2 ML Vial IVP PRN (23:43)
[2019-02-09] MEDS ORDERED: Ondansetron ODT 4 MG TAB SL PRN (23:43)
[2019-02-09] MEDS ORDERED: Dextrose 5 % And 0.9 % NaCl 1,000 ML IV SCH (23:45)
[2019-02-10] MEDS ORDERED: HumaLOG 300 UNITS/3 ML VIAL SC PRN (08:57)
[2019-02-10] MEDS ORDERED: Dextrose 50% Abboject 50 ML SYRINGE SLOW IVP PRN (08:57)
[2019-02-10] MEDS ORDERED: Dextrose 5% in Water 1,000 ML IV PRN (08:57)
[2019-02-10] MEDS ORDERED: Ondansetron ODT 4 MG TAB PO PRN (08:58)
[2019-02-10] MEDS ORDERED: Acetaminophen 500 MG TAB PO PRN (08:58)
[2019-02-10] MEDS ORDERED: Calcium Carbonate 500 MG ChewTAB PO PRN (08:58)
[2019-02-10] MEDS ORDERED: hydrOXYzine 25 MG TAB PO PRN (08:58)
[2019-02-10] MEDS ORDERED: HYDROcodone/Acetaminophen 5/325 mg Tablet PO PRN (08:58)
[2019-02-10] MEDS ORDERED: Ondansetron PF 4 MG/2 ML Vial IVP PRN (08:58)
[2019-02-10] MEDS ORDERED: Senokot S 8.6-50 MG TAB PO PRN (09:00)
[2019-02-10] MEDS ORDERED: Sodium Chloride 0.9% 1,000 ML IV SCH (09:00)
[2019-02-10] MEDS ORDERED: Milk Of Magnesia 30 ML UDCUP PO PRN (09:04)
[2019-02-10 09:34] LABS: #Eosinphils 0.3 thou/uL (0.0-0.7); #Lymphocytes 2.2 thou/uL (1.20-3.40); #Monocytes 0.8 thou/uL (0.11-0.59); #Neutrophils 4.4 thou/uL (1.40-6.50); %Basophils 0.3 % (0.0-1.0); %Eosinophils 3.6 % (0.0-10.0); %Lymphocytes 28.3 % (21.0-51.0); %Monocytes 10.5 % (0.0-10.0); %Neutrophils 57.3 % (42.0-75.0); Hemoglobin 10.8 g/dL (14.0-18.0); Mean Corpuscular HGB CONC 32.7 g/dL (32.0-36.0); Mean Corpuscular Hemoglobin 29.1 pg (27.0-31.0); Mean Corpuscular Volume 89.1 fL (78.0-98.0); Mean Platelet Volume 7.9 fL (7.4-10.4); Platelet Count 290 thou/uL (130-400); RBC Distribution Width 12.5 % (11.5-14.5); Red Blood Cell (RBC) Count 3.71 mill/uL (4.70-6.10); White Blood Cell (WBC) Count 7.8 thou/uL (4.8-10.8)
--- NOTE | 2019-02-10 09:34 | RAD ---
RIGHT FOOT TWO VIEWS: HISTORY: Diabetic foot ulcer. COMPARISON: Right foot films from 03/05/2018. FINDINGS: There has been prior amputation of the great toe, at the level of the proximal aspect of the proximal phalanx, unchanged from prior exam. There is a focal lucency or erosion along the proximal aspect of the residual portion of this proxima l phalanx, laterally, at the articular surface. This focal lucency was present previously and appear s stable. The lateral cortex remains intact. No other evidence of bony destruction or erosion. No plain film evidence of osteomyelitis apparent. The soft tissues appear stable from prior exam. IMPRESSION: No evidence of acute interval change when compared to the prior study. POS: [facility]
[2019-02-10 09:52] LABS: ALT (SGPT) 20 U/L (8-55); AST (SGOT) 11 U/L (5-34); Albumin 3.3 g/dL (3.4-4.8); Alkaline Phosphatase 56 U/L (40-150); Anion Gap 13 mmol/L (10-20); BUN (Urea Nitrogen) 22 mg/dL (8.4-25.7); Bilirubin, Total 0.4 mg/dL (0.2-1.2); CRP (Inflammatory) 10.65 mg/dL (= or < 0.5); Calc. Creatinine Clearance 142 mL/min (70-130); Calcium 7.8 mg/dL (7.8-10.44); Carbon Dioxide 19 mmol/L (23-31); Chloride 111 mmol/L (98-107); Estimated GFR-MDRD Greater than 90; Globulin 2.9 g/dL (2.4-3.5); Glucose 205 mg/dL (80-115); Potassium 3.4 mmol/L (3.5-5.1); Protein, Total 6.2 g/dL (5.8-8.1); Sodium 140 mmol/L (136-145)
[2019-02-10] MEDS: Sulfameth/Trimethoprim DS 800-160mg TAB PO SCH ×2 (10:35→20:43)
[2019-02-10] MEDS ORDERED: Potassium Chloride 40 MEQ in Sodium Chloride 0.9% 250 ML 250 ML IVPB SCH (10:45)
[2019-02-10] MEDS ORDERED: Magnesium 2 GM/50 ML 2 GM in Premix Bag 1 BAG IVPB SCH (10:45)
[2019-02-10] MEDS ORDERED: NS 0.9% w/ 40 MEQ KCL 1,000 ML IV SCH (12:00)
[2019-02-10] MEDS ORDERED: MEROPENEM 1 GM/50 ML 1 GM in Premix Bag 1 BAG IVPB SCH (14:00)
--- NOTE | 2019-02-10 16:05 | HP ---
PRIMARY CARE PHYSICIAN: Aidan Forbes DO CHIEF COMPLAINT: Intractable nausea, vomiting, and diarrhea. HISTORY OF PRESENT ILLNESS: The patient is a long-standing diabetic, who has struggled with his GI tract on a chronic basis, has suffered from right great toe amputation, followed by Podiatry outpatient, has current ulceration to head of right first metatarsal without any current drainage, redness, or fevers reported. The patient with acute onset of nausea, vomiting, diarrhea, which was intractable for which he requested to be transported to the emergency department for evaluation, found to be grossly dehydrated, had tachycardia, tachypnea, and leukocytosis, which met sepsis criteria. Given his foot wound, diabetic history, was admitted for sepsis protocol. Given IV fluids overnight and meropenem on empiric basis. The patient tolerated tray this morning of clear liquids well, unable to give clear answer to when the last time he threw up or had diarrhea as he states a yes to this hospitalization, but will not commit to timing. It appears the patient does not fully understand the question even when made in extremely simple terms. The patient denies any cough today. ER reports stated that he has struggled with cough before. His home medicationsinclude p.r.n. cough medicine as well. The patient's blood sugar was not significantly elevated on admission. The patient's vital signs have quickly resolved with IV rehydration. Vital signs this morning; temperature of 98.3, pulse of 85, respiratory rate of 18, oxygen saturation of 95% on room air, blood pressure of 111/72. ALLERGIES: NO KNOWN DRUG ALLERGIES. PAST MEDICAL HISTORY: Diabetes type 2, hyperlipidemia, prior carpal tunnel syndrome, hypertension, seasonal allergies, gastroesophageal reflux disease, chronic constipation; history of seizure disorder in 2009, currently in remission; polyneuropathy including diabetic foot wound, third nerve palsy of left eye, BPH without lower urinary obstruction. The patient diagnosed with cognitive impairment. PAST SURGICAL HISTORY: The patient is status post right hernia repair, carpal tunnel repair in 2010, right toe amputation in 2015. Last colonoscopy in 2009 with EGD. HOME MEDICATIONS: Include, 1. Delsym p.r.n. for cough twice daily. 2. Bromfed DM p.r.n. for cough. 3. Flonase 2 sprays once daily. 4. Tamsulosin 0.4 mg daily. 5. Finasteride 5 mg daily. 6. Sliding scale insulin with Novolin. 7. Lipitor 20 mg. 8. Metformin 1000 mg twice a day. 9. Levemir 100 units in a.m., 120 units in p.m. 10. Januvia 100 mg daily. 11. Claritin 10 mg daily. 12. Lisinopril 20 mg daily. 13. Aspirin 81 mg daily. 14. Vitamin B12 100 mcg daily. 15. MiraLAX one cap full p.o. p.r.n. constipation daily. 16. Milk of Magnesia 5 mL four times p.r.n. constipation. 17. Metamucil one packet daily. 18. Prilosec 20 mg daily. 19. Tums p.r.n. heartburn. 20. Maalox p.r.n. heartburn. SOCIAL HISTORY: The patient is a nonsmoker, appears to be currently living alone, but resides at [facility]. They gave notation of 100.[address] Forbes's clinic. REVIEW OF SYSTEMS: The patient denies any fevers or chills this morning. Reports nausea, vomiting, diarrhea, unknown last episode per the patient, but at least yesterday. No abdominal pain. Positive cough, which appears to be resolved this morning. No phlegm production. No chest pain. No shortness of breath. No lower extremity edema. Positive diabetic ulcer. The patient denies any changes to this in the last week. Denies any headaches or confusion. The patient denies any urinary symptoms. Denies any rashes. REVIEW OF LABORATORY WORK: White blood cell count improved from 16.7 on admission to 7.8, hemoglobin was concentrated at 14.8 and following IV rehydration showed normocytic anemia at 10.8, platelet count of 290, total left shift apparent. Following IV rehydration, lactic acid trended from 4.7 to 2.9, blood glucose range 166 to 276 in the last 16 hours. Sodium of 140, potassium of 3.4, CO2 of 19, creatinine improved to 0.59 following IV rehydration. Magnesium low at 1.4, calcium was 7.8, AST of 11, ALT of 20. CRP elevated at 10.6, prior baseline approximately 1.5. Albumin low at 3.3. Lipase of 41. Urinalysis showing protein, glucose and ketones. No nitrites, no blood. Preliminary blood cultures x2, no growth at 1200 hours. IMAGING STUDIES: Chest x-ray without acute cardiopulmonary events. X-ray of right foot, which has involved amputation site and site of diabetic ulcer, stable to prior imaging. No overt signs of osteomyelitis. PHYSICAL EXAMINATION: GENERAL: The patient is alert, in no acute distress. HEENT: Normocephalic and atraumatic. Extraocular movements are intact. After IV rehydration, oral mucosa is currently moist. NECK: Supple. HEART: Regular rate and rhythm at time of exam. PACs are present and palpable on exam, which are conferred with on EKG on admission. Rate is regular. LUNGS: Clear to auscultation bilaterally. No rubs or wheezes. ABDOMEN: Soft, nontender. Positive bowel sounds throughout. EXTREMITIES: Lower extremities without cyanosis or edema. Right foot is with bandage from admission with intact dressing. No discharge present. Dorsalis pedis pulses present bilaterally. No erythema extending. No pitting edema. NEUROLOGIC: The patient is alert and oriented x2. Unable to carry on complex conversations, which appears to be the patient's baseline given his cognitive impairment. ASSESSMENT AND PLAN: Nausea, vomiting, diarrhea, meeting sepsis criteria, dehydration, much improved following rehydration overnight, diabetes type 2, diabetic foot wound with ulceration, normocytic anemia, hypokalemia, hypomagnesemia. Continuing meropenem, adding in Bactrim for additional Staph coverage. At this point in time, the patient has responded well, I do not feel necessary to add vancomycin. This also gave him something possibly transition home a bit quicker with, but interested in covering Pseudomonas and staph at this point in time regarding foot, although x-ray does not show signs and symptoms of osteomyelitis. We will continue to cover for coverage for staph and Pseudomonas as above. Bolus the patient with IV fluids. We will see how much he tolerates this afternoon. We will reinitiate IV fluids if needed, but appears to be rehydrated at this point in time. If fevers continue, would possibly look at an MRI of right lower extremity foot ulcer to see if more acute processes are going on as CRP is grossly elevated. Continue home medications for benign prostatic hyperplasia and p.r.n. if the patient starts showing signs of his chronic constipation, continuing his home GERD medication. We will look to start prophylactic Lovenox in first 24 hours of hospital stay, currently on aspirin 81 mg. No signs of bleeding on exam today. Continuing home lisinopril for blood pressure coverage. We will continue to follow up on cultures as they become finalized. Job ID: [id number]
[2019-02-10] MEDS: MEROPENEM 1 GM/50 ML 1 GM in Premix Bag 1 BAG IVPB SCH (18:05)
[2019-02-10] MEDS ORDERED: Atorvastatin Calcium 20 MG TAB PO SCH (21:00)
[2019-02-10] MEDS ORDERED: Lisinopril 20 MG TAB PO SCH (21:00)
[2019-02-11] MEDS ORDERED: Clopidogrel Bisulfate 75 MG TAB ONE (00:32)
[2019-02-11] MEDS: MEROPENEM 1 GM/50 ML 1 GM in Premix Bag 1 BAG IVPB SCH ×2 (00:41→08:01)
[2019-02-11 06:54] LABS: #Eosinphils 0.3 thou/uL (0.0-0.7); #Lymphocytes 2.2 thou/uL (1.20-3.40); #Monocytes 0.8 thou/uL (0.11-0.59); #Neutrophils 4.8 thou/uL (1.40-6.50); %Basophils 0.2 % (0.0-1.0); %Eosinophils 3.8 % (0.0-10.0); %Monocytes 10.4 % (0.0-10.0); %Neutrophils 58.7 % (42.0-75.0); Hemoglobin 11.3 g/dL (14.0-18.0); Mean Corpuscular HGB CONC 33.6 g/dL (32.0-36.0); Mean Corpuscular Hemoglobin 29.9 pg (27.0-31.0); Mean Corpuscular Volume 88.9 fL (78.0-98.0); Mean Platelet Volume 7.6 fL (7.4-10.4); Platelet Count 283 thou/uL (130-400); RBC Distribution Width 12.4 % (11.5-14.5); Red Blood Cell (RBC) Count 3.79 mill/uL (4.70-6.10); White Blood Cell (WBC) Count 8.1 thou/uL (4.8-10.8)
[2019-02-11 07:13] LABS: ALT (SGPT) 25 U/L (8-55); AST (SGOT) 28 U/L (5-34); Albumin 3.6 g/dL (3.4-4.8); Alkaline Phosphatase 69 U/L (40-150); Anion Gap 13 mmol/L (10-20); BUN (Urea Nitrogen) 8 mg/dL (8.4-25.7); Bilirubin, Total 0.2 mg/dL (0.2-1.2); Calc. Creatinine Clearance 155 mL/min (70-130); Calcium 8.2 mg/dL (7.8-10.44); Carbon Dioxide 19 mmol/L (23-31); Chloride 109 mmol/L (98-107); Estimated GFR-MDRD Greater than 90; Globulin 3.1 g/dL (2.4-3.5); Glucose 194 mg/dL (80-115); Potassium 4.2 mmol/L (3.5-5.1); Protein, Total 6.7 g/dL (5.8-8.1); Sodium 137 mmol/L (136-145)
[2019-02-11 07:54] VITALS: BP 134/84; TEMP 98.4
[2019-02-11] MEDS: Sulfameth/Trimethoprim DS 800-160mg TAB PO SCH (08:01)
[2019-02-11] MEDS ORDERED: Aspirin 81 mg Enteric Coated Tablet PO SCH (09:00)
[2019-02-11] MEDS ORDERED: Metamucil PACK PO SCH (09:00)
[2019-02-11] MEDS ORDERED: Tamsulosin HCl 0.4 MG CAP PO SCH (09:00)
[2019-02-11] MEDS ORDERED: Finasteride 5 MG TAB PO SCH (09:00)
--- NOTE | 2019-02-12 02:27 | DIS ---
DATE OF ADMISSION: 02/09/2019 DATE OF DISCHARGE: 02/11/2019 PRIMARY CARE PHYSICIAN: Aidan Forbes DO CHIEF COMPLAINT: Nausea, vomiting, and diarrhea. HOSPITAL COURSE: The patient presented to the emergency department after nursing staff at [facility] called on-call physician and recommended the patient be transported to the emergency department for evaluation, found to be severely dehydrated with nausea, vomiting, and diarrhea. No blood reported. Concern given the patient's diabetic status as well as diabetic ulcer that he may be septic. The patient was admitted to floor, continued on IV fluids, responded very well. Had no further episodes of vomiting or diarrhea. Titrated on diet. Back to full ADA diet without difficulty. Foot wound was x-rayed and found to have no specific findings for osteomyelitis. CRP was elevated. The patient was continued on antibiotics despite cultures being negative. C diff toxin, shiga and Campylobacter toxin were all negative. Stool culture preliminary was normal tiffanie. The patient's electrolytes were replaced including magnesium and potassium. The patient to go home on home medications with addition of Bactrim and Levaquin for differential with CRP elevation, complication with diabetic foot wound, has follow up with Podiatry I believe in the next 6-8 weeks. If any fevers reoccur in absence of fever or diarrhea, would recommend MRI of right foot. DISCHARGE MEDICATIONS: Include: 1. Tylenol 650 mg q.4 hours p.r.n. pain and fever. 2. 81 mg aspirin. 3. Tums 1000 mg p.r.n. GERD symptoms. 4. 500 mcg vitamin B12. 5. Delsym p.r.n. cough 10 mL. 6. 600 mg ibuprofen. 7. Sliding scale unit of NovoLog. 8. Levemir up to 50 units. 9. Lisinopril 20 mg at bedtime. 10. Loratadine 10 mg daily. 11. Psyllium Fiber one packet daily. 12. Zofran 4 mg q.6 hours p.r.n. nausea. 13. Atorvastatin 20 mg. 14. Levaquin 500 mg. 15. Finasteride 5 mg. 16. Magnesium hydroxide 30 mL p.r.n. constipation. 17. Metformin 1000 mg b.i.d. 18. Protonix 40 mg daily. 19. Januvia 100 mg daily. 20. Bactrim Double Strength one tab p.o. b.i.d. daily. 21. Flomax 0.4 mg daily. DISCHARGE CONDITION: Good. Return to [facility]. DIET: ADA diet. ACTIVITY: As tolerated. FOLLOWUP: Follow up with Podiatry in the next 2 months as planned. Follow up with Aidan Forbes in the next 7-10 days. Monitor for fever as above for possible further investigation with CRP and possible MRI. Complete antibiotics. Thank you very much. Job ID: [id number]
== END 2019-02-11 13:19 | DRG 872 ==
LOC: ERS 17:33 → T4-B 19:07
PROVIDERS: ADMIT Family Medicine; ATTEND Family Medicine
DX: A41.9 Sepsis, unspecified organism (principal); E11.621 Type 2 diabetes mellitus with foot ulcer; E11.42 Type 2 diabetes mellitus with diabetic polyneuropathy; L97.519 Non-pressure chronic ulcer of other part of right foot with unspecified severity; E83.42 Hypomagnesemia; E86.0 Dehydration; E78.5 Hyperlipidemia, unspecified; I10 Essential (primary) hypertension; K21.9 Gastro-esophageal reflux disease without esophagitis; N40.0 Benign prostatic hyperplasia without lower urinary tract symptoms; D64.9 Anemia, unspecified; E87.6 Hypokalemia; K59.09 Other constipation; Z79.82 Long term (current) use of aspirin; Z79.4 Long term (current) use of insulin; Z79.899 Other long term (current) drug therapy; Z89.411 Acquired absence of right great toe
CPT/HCPCS: 36415; 36416; 71045; 80053; 81003; 81015; 83605; 83690; 83735; 85025; 86140; 87040; 87045; 87046; 87324; 87449; 87899; 93005; 94760; 96361; 96365; 96375; J2185; J2270; J2405; J3475; J3480; J3490; J7050

== ENCOUNTER 2019-07-30 11:51 | Emergency (ER) | payer MEDICARE, MEDICAID ==
[2019-07-30] MEDS ORDERED: ISOVUE-370 76%-LOCM 1 ML ONE (12:14)
[2019-07-30 12:18] LABS: #Eosinphils 0.1 thou/uL (0.0-0.7); #Lymphocytes 3.2 thou/uL (1.20-3.40); #Monocytes 0.7 thou/uL (0.11-0.59); #Neutrophils 7.3 thou/uL (1.40-6.50); %Basophils 0.3 % (0.0-1.0); %Eosinophils 1.2 % (0.0-10.0); %Lymphocytes 27.9 % (21.0-51.0); %Monocytes 6.5 % (0.0-10.0); %Neutrophils 64.1 % (42.0-75.0); Mean Corpuscular HGB CONC 33.5 g/dL (32.0-36.0); Mean Corpuscular Hemoglobin 29.3 pg (27.0-31.0); Mean Corpuscular Volume 87.3 fL (78.0-98.0); Mean Platelet Volume 8.1 fL (7.4-10.4); Platelet Count 310 thou/uL (130-400); Red Blood Cell (RBC) Count 4.44 mill/uL (4.70-6.10); White Blood Cell (WBC) Count 11.4 thou/uL (4.8-10.8)
[2019-07-30 12:34] LABS: ALT (SGPT) 49 U/L (8-55); AST (SGOT) 18 U/L (5-34); Albumin 4.3 g/dL (3.4-4.8); Alkaline Phosphatase 101 U/L (40-110); Anion Gap 15 mmol/L (10-20); BUN (Urea Nitrogen) 11 mg/dL (8.4-25.7); Bilirubin, Total 0.2 mg/dL (0.2-1.2); Calc. Creatinine Clearance 0 mL/min (70-130); Calcium 8.9 mg/dL (7.8-10.44); Carbon Dioxide 22 mmol/L (23-31); Chloride 105 mmol/L (98-107); Estimated GFR-MDRD Greater than 90; Globulin 3.5 g/dL (2.4-3.5); Glucose 343 mg/dL (80-115); Lipase 42 U/L (8-78); Potassium 3.7 mmol/L (3.5-5.1); Protein, Total 7.8 g/dL (5.8-8.1); Sodium 138 mmol/L (136-145)
[2019-07-30 12:41] LABS: Bacteria/HPF None Seen HPF (None Seen); Bilirubin Negative (Negative); Blood, Urine Negative (Negative); Clarity Clear (Clear); Glucose, Urine (Dipstick) Greater than 1000 mg/dL (Negative); Leukocyte Negative Leu/uL (Negative); Nitrite Negative (Negative); Protein, Urine (Dipstick) 100 mg/dL (Neg-Trace); Squamous Epithelial None Seen HPF (0-3); Urobilinogen Normal mg/dL (Less than 2); WBC/HPF 0-3 HPF (0-3)
[2019-07-30] MEDS ORDERED: Dicyclomine 20 MG TAB ONE ×2 (13:58→14:00)
--- NOTE | 2019-07-30 16:45 | CT ---
CT ABDOMEN AND PELVIS WITH IV CONTRAST: History: Abdominal pain. Comparison: 01-21-19 FINDINGS: The lung bases are unremarkable. There is fatty infiltration of the liver without focal mass, abnorma l biliary ductal dilatation. No calcified gallstones are seen. The spleen, pancreas, adrenal glands a nd left kidney are normal. Cysts in the right kidney are again noted. No free air, free fluid, or lymphadenopathy is seen in the abdomen or pelvis. There are vascular calc ifications without evidence of aneurysmal dilatation of the abdominal aorta. There are degenerative c hanges in the spine. Small bowel loops are not abnormally dilated. Fat and soft tissue containing left inguinal hernia is stable. There is fecal material in the colon and rectum. IMPRESSION: Constipation. Otherwise stable exam. POS: CASIE
== END 2019-07-30 18:12 ==
LOC: ERS 11:51
DX: K59.00 Constipation, unspecified (principal); I10 Essential (primary) hypertension; E78.5 Hyperlipidemia, unspecified; D64.9 Anemia, unspecified
CPT/HCPCS: 36415; 74177; 80053; 81003; 81015; 83690; 85025; Q9966

== ENCOUNTER 2020-05-08 08:32 | Emergency (ER) | payer MEDICARE, OTHER ==
[2020-05-08] MEDS ORDERED: Ondansetron PF 4 MG/2 ML Vial ONE ×2 (08:54→11:44)
[2020-05-08 09:34] LABS: #Eosinphils 0.4 thou/uL (0.0-0.7); #Lymphocytes 2.2 thou/uL (1.20-3.40); #Monocytes 1.7 thou/uL (0.11-0.59); #Neutrophils 9.1 thou/uL (1.40-6.50); %Basophils 0.2 % (0.0-1.0); %Eosinophils 2.8 % (0.0-10.0); %Lymphocytes 16.6 % (21.0-51.0); %Monocytes 12.4 % (0.0-10.0); Hemoglobin 14.2 g/dL (14.0-18.0); Mean Corpuscular Hemoglobin 31.5 pg (27.0-31.0); Mean Platelet Volume 8.3 fL (7.4-10.4); Platelet Count 334 thou/uL (130-400); RBC Distribution Width 12.2 % (11.5-14.5); Red Blood Cell (RBC) Count 4.51 mill/uL (4.70-6.10); White Blood Cell (WBC) Count 13.3 thou/uL (4.8-10.8)
[2020-05-08 09:48] LABS: Bacteria/HPF None Seen HPF (None Seen); Bilirubin Negative (Negative); Blood, Urine Negative (Negative); Clarity Clear (Clear); Glucose, Urine (Dipstick) Normal (Negative); Ketone, Urine Negative (Negative); Leukocyte Negative Leu/uL (Negative); Mucous/LPF Rare LPF (<2+); Nitrite Negative (Negative); Protein, Urine (Dipstick) 30 mg/dL (Neg-Trace); RBC/HPF 0-3 HPF (0-3); Specific Gravity, Urine 1.015 (1.002-1.036); Squamous Epithelial 0-3 HPF (0-3); Urobilinogen Normal mg/dL (Less than 2); WBC/HPF 0-3 HPF (0-3)
[2020-05-08 10:21] LABS: ALT (SGPT) 15 U/L (8-55); AST (SGOT) 12 U/L (5-34); Albumin 4.1 g/dL (3.4-4.8); Alkaline Phosphatase 66 U/L (40-110); Anion Gap 17 mmol/L (10-20); BUN (Urea Nitrogen) 57 mg/dL (8.4-25.7); Bilirubin, Total 0.5 mg/dL (0.2-1.2); Calc. Creatinine Clearance 0 mL/min (70-130); Calcium 8.1 mg/dL (7.8-10.44); Carbon Dioxide 18 mmol/L (23-31); Chloride 104 mmol/L (98-107); Estimated GFR-MDRD 67; Globulin 3.5 g/dL (2.4-3.5); Glucose 172 mg/dL (80-115); Lipase 12 U/L (8-78); Protein, Total 7.6 g/dL (5.8-8.1); Sodium 135 mmol/L (136-145)
--- NOTE | 2020-05-08 11:15 | CT ---
CT ABDOMEN AND PELVIS WITH IV CONTRAST 05/08/2020 CLINICAL INFORMATION: Generalized abdominal pain for 2 days with associated nausea, vomiting, and diarrhea. COMPARISON: 07/30/2019 Technique: Multiple contiguous axial CT images are obtained through the abdomen and pelvis with IV contrast. Cor onal reformatted images are provided. FINDINGS: Lower Chest: Calcified granulomata are seen at each lung base. Vessels: Scattered vascular calcifications and atherosclerotic plaque is seen in the abdominal aorta and involving the iliac arteries. Abdomen: Portal vein:Patent Gallbladder: Mildly distended measuring 5 cm in diameter. No adjacent inflammatory stranding is seen. Liver: within normal limits. Spleen: within normal limits. Pancreas: within normal limits. Adrenals: within normal limits. Kidneys: Superior pole hypodense renal lesion measuring 2.1 cm is again seen demonstrating characteri stics most suggestive of a cyst. A stable subcentimeter too small to characterize exophytic hypodense lesion superior pole left kidney is present. Kidneys otherwise have a normal CT appearance. Bowel: Fluid-filled but nondilated loops of small bowel are present. Appendix: The appendix is visualized and normal in caliber. Peritoneum: No ascites or free air; no fluid collection. Mesentery and Retroperitoneum: No enlarged mesenteric or retroperitoneal lymph nodes. Abdominal Wall: Minimal stranding is seen in the anterior adipose layer at the level of the pelvis wh ich may be related to recent subcutaneous injections. There is a fat-containing left inguinal hernia with a low-density area seen in the left inguinal canal. This is stable compared to prior stud y as well as a prior study in 2009. A stable low-density area is also seen in the right anterolateral aspect of the pelvis adjacent to the inguinal canal which could be related to prior her boom repair. This is also stable compared to prior exam as well as a study in 2009. Pelvis: Reproductive Organs: No pelvic masses. Bladder: within normal limits. Bones: Left convex curvature of thoracolumbar spine. This may be related to positioning. No suspiciou s lytic or sclerotic osseous lesions are identified on this exam. IMPRESSION: 1. No acute findings are seen in the abdomen or pelvis. 2. Mild nonspecific gallbladder distention without biliary ductal dilatation seen. 3. Superior pole right renal cyst. 4. Fluid-filled but nondilated loops of small bowel. 5. No fluid collection is seen in the abdomen or pelvis, and no free intraperitoneal gas is identifie d. 6. Fat-containing left inguinal hernia with low-density area seen in the lower aspect of the left ing uinal canal. This is unchanged dating back to study in 2009.
[2020-05-08] MEDS ORDERED: Dicyclomine 20 MG TAB ONE (11:44)
[2020-05-08] MEDS ORDERED: Iopamidol-370 76% 500 ML 1 ML ONE (15:11)
== END 2020-05-08 18:00 | disposition home or self-care (01) ==
LOC: ERS 08:32
DX: R11.2 Nausea with vomiting, unspecified (principal); R19.7 Diarrhea, unspecified; E11.9 Type 2 diabetes mellitus without complications; I10 Essential (primary) hypertension; E78.5 Hyperlipidemia, unspecified; Z79.899 Other long term (current) drug therapy
CPT/HCPCS: 74177; 80053; 81003; 81015; 83605; 83690; 84484; 85025; 87040; 93005; 96361; 96374; 96376; J2405; Q9967

== ENCOUNTER 2020-07-25 08:13 | Inpatient (IN) | payer MEDICARE, MEDICAID, OTHER ==
[2020-07-25] MEDS ORDERED: cefTRIAXone\\ROCEPHIN 2 GM VIAL ONE (08:42)
[2020-07-25] MEDS ORDERED: Acetaminophen 325 MG TAB ONE (08:42)
[2020-07-25] MEDS ORDERED: Azithromycin 500 MG VIAL ONE (08:42)
[2020-07-25 08:48] LABS: #Lymphocytes 0.7 thou/uL (1.20-3.40); #Monocytes 0.3 thou/uL (0.11-0.59); #Neutrophils 8.6 thou/uL (1.40-6.50); %Eosinophils 0.1 % (0.0-10.0); %Lymphocytes 7.3 % (21.0-51.0); %Monocytes 3.5 % (0.0-10.0); %Neutrophils 89.2 % (42.0-75.0); Hemoglobin 13.5 g/dL (14.0-18.0); Mean Corpuscular HGB CONC 33.9 g/dL (32.0-36.0); Mean Corpuscular Hemoglobin 29.6 pg (27.0-31.0); Mean Corpuscular Volume 87.1 fL (78.0-98.0); Mean Platelet Volume 8.2 fL (7.4-10.4); Platelet Count 221 thou/uL (130-400); RBC Distribution Width 12.1 % (11.5-14.5); Red Blood Cell (RBC) Count 4.56 mill/uL (4.70-6.10); White Blood Cell (WBC) Count 9.7 thou/uL (4.8-10.8)
[2020-07-25] MEDS ORDERED: Ondansetron PF 4 MG/2 ML Vial ONE (08:52)
[2020-07-25 09:08] LABS: ALT (SGPT) 22 U/L (8-55); AST (SGOT) 27 U/L (5-34); Albumin 3.7 g/dL (3.4-4.8); Alkaline Phosphatase 70 U/L (40-110); Anion Gap 19 mmol/L (10-20); BUN (Urea Nitrogen) 20 mg/dL (8.4-25.7); Bilirubin, Total 0.3 mg/dL (0.2-1.2); Calc. Creatinine Clearance 0 mL/min (70-130); Carbon Dioxide 15 mmol/L (23-31); Chloride 98 mmol/L (98-107); Estimated GFR-MDRD Greater than 90; Glucose 251 mg/dL (80-115); Protein, Total 7.7 g/dL (5.8-8.1); Sodium 128 mmol/L (136-145)
--- NOTE | 2020-07-25 09:27 | RAD ---
CHEST 1 VIEW: HISTORY: COVID positive patient. Chest pain and shortness of breath x 1 day. FINDINGS: Normal cardiac silhouette. Atherosclerosis of the aorta. Pulmonary vessels and hilum are normal. C ostophrenic angles are clear. Patchy interstitial and alveolar opacities. NO pneumothorax or acute osseous abnormalities. Surgical clips project over the left and right neck. IMPRESSION: Patchy interstitial and alveolar opacities compatible with patient's history of COVID pneumonia. POS: AH
[2020-07-25 09:30] LABS: CKMB 3.8 ng/mL (0-6.6)
--- NOTE | 2020-07-25 10:19 | CT ---
CT ANGIOGRAM THORAX WITH IV CONTRAST AND 3-D RECONSTRUCTIONS CLINICAL INDICATION: Dyspnea. Covid positive. Increased cough. COMPARISON: None FINDINGS: Pulmonary arteries: There is significant respiratory motion which limits evaluation of the lower lobe pulmonary arteries and limits evaluation for pulmonary emboli. In addition there is suboptimal timing of the contrast bolus limiting evaluation. There is no filling defect within the central pulmo nary arteries to suggest a pulmonary embolus. Pulmonary embolus involving the segmental or subsegmental pulmonary arteries would be difficult to exclude based on this exam. Aorta: Vascular calcifications are seen in the thoracic and visualized proximal abdominal aorta. Prom inent vascular calcifications are seen in the coronary arteries. There is irregular atherosclerotic eccentric plaque within the proximal superior mesenteric artery. This was seen on study on 05/08/2020. Lungs: Multifocal groundglass opacities are seen throughout the lungs bilaterally in a peripheral pre dominance most suggestive of viral pneumonitis related to Covid 19. A calcified granuloma is seen at the right lung base. Mediastinum: Few mildly prominent mediastinal lymph nodes are seen likely reactive in origin. There i s circumferential thickening involving the telles of the thoracic esophagus. This is nonspecific but could be related to esophagitis. Thyroid gland: Within normal limits where imaged. 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 There is irregularity involving the head of the left clavicle which may be related to prior injury. Degenerative changes are seen in the thoracic spine. Chest wall: No abnormality visualized. Upper abdomen: Incompletely visualization of a hypodense lesion superior pole right kidney shown to r epresent a cyst on CT abdomen on 05/08/2020. IMPRESSION: 1. Multifocal groundglass opacities throughout the lungs bilaterally most compatible with viral pneum onitis such as Covid 19. 2. Diffuse circumferential thickening of the telles of the thoracic esophagus. This is nonspecific but may be related to esophagitis. 3. Suboptimal timing of the contrast bolus as well as respiratory motion limiting adequate evaluation for pulmonary embolus. While there is no central pulmonary embolus, a pulmonary embolus involving the segmental or subsegmental pulmonary arteries cannot be excluded based on this exam. 4. Reactive mediastinal lymphadenopathy.
--- NOTE | 2020-07-25 10:59 | PDOC.HHP ---
Hospitalist HPI - History of Present Illness Chest pain and shortness of breath History of Present Illness: 64-year-old male who lives at the [facility], he has underlying medical history of diabetes on insulin, hypertension, benign enlargement of prostate who was sent from [facility] today because he was having increasing shortness of breath and chest discomfort. He was tested positive for COVID-19 2 days ago on Wednesday. Symptoms started 1 day before testing, and the symptoms gradually gotten worse and he was having more shortness of breath and cough and nausea as well as one episode of vomiting and some diarrhea. Today in the emergency room he had CT angiography which showed multifocal digna undglass opacity throughout the lung consistent with COVID-19 pneumonia. Patient was also found with a diffuse circumferential thickening of the thoracic esophagus. His chest x-ray was also consistent with Covid pneumonia. His troponin is slightly elevated. He was also having low sodium. In the emergency room he was tachycardic and he was slightly hypoxic requiring 3 L oxygen. He also had low-grade fever. In the emergency room patient has been treated with aspirin Rocephin and azithromycin he was given Tylenol and IV fluid. Patient will be admitted in the hospital for further evaluation and treatment. ED Course: Patient has been given Rocephin, azithromycin, IV fluid, aspirin 325 mg and Tylenol 650 mg Hospitalist ROS - Review of Systems Constitutional: reports: fever, weakness, malaise. denies: chills, sweats, other Eyes: denies: pain, vision change, conjunctivae inflammation, eyelid inflammation, redness, other ENT: denies: ear pain, ear discharge, nose pain, nose discharge, nose congestion, mouth pain, mouth swelling, throat pain, throat swelling, other Respiratory: reports: cough, dry, shortness of breath, SOB with excertion. denies: hemoptysis, pleuritic pain, sputum, wheezing, other Cardiovascular: reports: chest pain. denies: palpitations, orthopnea, paroxysmal noc. dyspnea, edema, light headedness, other Gastrointestinal: reports: nausea, vomiting, diarrhea. denies: abdominal pain, constipation, melena, hematochezia, other Genitourinary: denies: dysuria, frequency, incontinence, hematuria, retention, other Musculoskeletal: denies: neck pain, shoulder pain, arm pain, back pain, hand pain, leg pain, foot pain, other Skin: denies: rash, lesions, jose, bruising, other - Medication Medications: Home medication Allergies No Known Allergies Allergy (Verified 12/24/19 16:06) per patient Medication Instructions Recorded Confirmed Type Aspirin [Adult Low Dose Aspirin EC] 81 mg PO DAILY 02/16/15 02/10/19 History Calcium Carbonate [Tums] 1,000 mg PO Q3HR 02/16/15 02/10/19 History Loratadine [Claritin] 10 mg PO DAILY 02/16/15 02/10/19 History Magnesium Hydroxide [Milk Of 30 ml PO DAILYPRN PRN #0 udcup 12/26/15 02/10/19 Rx Magnesium] metFORMIN [Glucophage] 1,000 mg PO BID-WM #0 tab 12/26/15 02/10/19 Rx sitaGLIPtin Phosphate [Januvia] 100 mg PO DAILY #0 tab 12/26/15 02/10/19 Rx Acetaminophen [Tylenol Extra 1,000 mg PO Q6H PRN #0 tab 11/20/16 02/10/19 Rx Strength] Finasteride [Proscar] 5 mg PO DAILY tab 11/20/16 02/10/19 Rx Multivit, Therapeutic [Theragran] 1 tab PO DAILY tab 11/20/16 02/10/19 Rx Tamsulosin HCl [Flomax] 0.4 mg PO DAILY cap 11/20/16 02/10/19 Rx Acetaminophen 650 mg PO Q4HR PRN 03/05/18 02/10/19 History Ibuprofen 600 mg PO Q8HR PRN 03/05/18 02/10/19 History Insulin Aspart [NovoLOG] 15 unit SQ TID-WM 03/05/18 02/10/19 History Insulin Detemir 100 UNITS/ML 50 units SC BID 03/05/18 02/10/19 History [Levemir] Psyllium Husk/Aspartame [Metamucil 10 ml PO DAILY 03/05/18 02/10/19 History Sugar-Free Powder] Cyanocobalamin (Vitamin B-12) 500 mcg PO DAILY 03/06/18 02/10/19 History [Vitamin B-12] Atorvastatin Calcium [Lipitor] 20 mg PO HS tab 03/08/18 02/10/19 Rx Pantoprazole [Protonix] 40 mg PO 2100 tab 03/08/18 02/10/19 Rx Ondansetron HCl [Zofran] 4 mg PO Q6HR PRN 09/30/18 02/10/19 History guaiFENesin/Dextromethorphan 10 ml PO Q4HR PRN 09/30/18 02/10/19 History [Guaicon DMS InstyDose] Lisinopril [Zestril] 20 mg PO HS 02/10/19 02/10/19 History Levofloxacin [Levaquin] 500 mg PO DAILY #14 tab 02/11/19 Rx Sulfamethoxazole/Trimethoprim 1 tab PO BID #28 tab 02/11/19 Rx [Bactrim DS] Hospitalist History - Past Medical History Other Medical History: Diabetes type 2 Hypertension Benign enlargement of prostate Gastroesophageal reflux disease - Past Surgical History Other Surgical History: Hernia repair Carpal tunnel repair Amputation of first of right foot Bilateral cataract - Family History Other Family History: No strong family history of premature coronary artery disease stroke or cancer - Social History Other Social History: Patient is from retirement home, no history of tobacco alcohol or illicit drug abuse - Exam General Appearance: NAD, ill appearing Eye: PERRL, anicteric sclera ENT: normocephalic atraumatic, no oropharyngeal lesions Neck: supple, symmetric, no JVD, no thyromegaly Heart: no murmur, no gallops, no rubs Heart - other findings: Tachycardia Respiratory: no tachypnea (No accessory muscles of respiration use) Respiratory - other findings: Bilateral coarse breath sound basally, Gastrointestinal: soft, non-tender, non-distended, normal bowel sounds, no palpable masses Extremities: no cyanosis, no clubbing, no edema Skin: normal turgor, no lesions, no rashes Neurological: cranial nerve grossly intact, normal sensation to touch, no focal deficits Musculoskeletal: normal tone, normal strength Psychiatric: normal affect, normal behavior Hospitalist Results - Labs Result Diagrams: 07/25/20 08:33 07/25/20 08:33 Lab results: WBC 9.7 thou/uL (4.8-10.8) 07/25/20 08:33 Hgb 13.5 g/dL (14.0-18.0) L 07/25/20 08:33 Hct 39.7 % (42.0-52.0) L 07/25/20 08:33 MCV 87.1 fL (78.0-98.0) 07/25/20 08:33 Plt Count 221 thou/uL (130-400) 07/25/20 08:33 Neutrophils % 89.2 % (42.0-75.0) H 07/25/20 08:33 Sodium 128 mmol/L (136-145) L 07/25/20 08:33 Potassium 4.0 mmol/L (3.5-5.1) 07/25/20 08:33 Chloride 98 mmol/L (98-107) 07/25/20 08:33 Carbon Dioxide 15 mmol/L (23-31) L 07/25/20 08:33 BUN 20 mg/dL (8.4-25.7) 07/25/20 08:33 Creatinine 0.65 mg/dL (0.7-1.3) L 07/25/20 08:33 Glucose 251 mg/dL (80-115) H 07/25/20 08:33 Lactic Acid 1.6 mmol/L (0.5-2.2) 07/25/20 08:33 Calcium 8.0 mg/dL (7.8-10.44) 07/25/20 08:33 Total Bilirubin 0.3 mg/dL (0.2-1.2) 07/25/20 08:33 AST 27 U/L (5-34) 07/25/20 08:33 ALT 22 U/L (8-55) 07/25/20 08:33 Alkaline Phosphatase 70 U/L (40-110) 07/25/20 08:33 CK-MB (CK-2) 3.8 ng/mL (0-6.6) 07/25/20 08:33 Troponin I 0.031 ng/mL (< 0.028) H 07/25/20 08:33 Serum Total Protein 7.7 g/dL (5.8-8.1) 07/25/20 08:33 Albumin 3.7 g/dL (3.4-4.8) 07/25/20 08:33 - EKG Interpretation EK lead EKG shows, sinus tachycardia, Rate (beats per minute): 113, with premature atrial complexes, Conduction normal, ST segments normal, T waves normal. - Radiology Interpretation CT scan - chest Status: image reviewed by me Additional Comment: IMPRESSION: 1. Multifocal groundglass opacities throughout the lungs bilaterally most co mpatible with viral pneum onitis such as Covid 19. 2. Diffuse circumferential thickening of the telles of the thoracic esophagus. This is nonspecific but may be related to esophagitis. 3. Suboptimal timing of the contrast bolus as well as respiratory motion limiting adequate evaluation for pulmonary embolus. While there is no central pulmonary embolus, a pulmonary embolus involving the segmental or subsegmental pulmonary arteries cannot be excluded based on this exam. 4. Reactive mediastinal lymphadenopathy. Chest x-ray Status: image reviewed by me Additional Comment: IMPRESSION: Patchy interstitial and alveolar opacities compatible with patients history of COVID pneumonia. Hospitalist H&P A/P - Problem (1) Acute respiratory failure due to COVID-19 Code(s): U07.1 - COVID-19; J96.00 - ACUTE RESPIRATORY FAILURE, UNSP W HYPOXIA OR HYPERCAPNIA Status: Acute Assessment and Plan: Patient has hypoxia requiring 3 L nasal cannula oxygen, and patient also has a viral pneumonia based on chest x-ray and CT angio, will continue to monitor in the hospital and if patient requires high flow oxygen then will consider transferring to IMCU or ICU based on clinical course. (2) Type 2 myocardial infarction Code(s): I21.A1 - MYOCARDIAL INFARCTION TYPE 2 Status: Acute Assessment and Plan: Patient has chest pain and he has elevated troponin but most likely this is related with his pneumonia and likely due to demand ischemia secondary to hypoxia and pneumonia, will do serial troponin and continue with aspirin 81 mg daily (3) Viral pneumonia Code(s): J12.9 - VIRAL PNEUMONIA, UNSPECIFIED Status: Acute Assessment and Plan: CT angiography and chest x-ray consistent with pattern of COVID-19 viral pneumonia, we are empirically giving Rocephin and azithromycin, will also starting dexamethasone 6 mg p.o. daily, patient will be candidate for remdesivirwe will consult infectious disease for evaluation of the treatment. We will daily wean off oxygen and monitor clinical response. (4) SIRS (systemic inflammatory response syndrome) Code(s): R65.10 - SIRS OF NON-INFECTIOUS ORIGIN W/O ACUTE ORGAN DYSFUNCTION Status: Acute Assessment and Plan: Patient has tachycardia, hypoxia, all related with underlying COVID-19 infection. (5) Diarrhea Code(s): R19.7 - DIARRHEA, UNSPECIFIED Status: Acute Qualifiers: Diarrhea type: unspecified type Qualified Code(s): R19.7 - Diarrhea, unspecified Assessment and Plan: This is viral gastroenteritis from COVID-19 infection, that also contributes to his hyponatremia, patient has already received IV fluid and now we will encourage oral intake. We will avoid IV fluid to prevent volume overload status. We will repeat labs tomorrow and will also check urine analysis. If sodium does not improve then will consider doing more investigation like urine sodium creatinine. (6) Vomiting Code(s): R11.10 - VOMITING, UNSPECIFIED Status: Acute Qualifiers: Nausea presence: with nausea Assessment and Plan: Patient is kept on symptomatic treatment for nausea and vomiting with Zofran. (7) Hyponatremia Code(s): E87.1 - HYPO-OSMOLALITY AND HYPONATREMIA Status: Acute Assessment and Plan: As mentioned above this most likely related with diarrhea and volume deficit, patient already received IV fluid in the emergency room, will repeat labs tomorrow and based on that result will decide further investigation. 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 (9) Hypertension Code(s): I10 - ESSENTIAL (PRIMARY) HYPERTENSION Status: Chronic Qualifiers: Hypertension type: essential hypertension Qualified Code(s): I10 - Essential (primary) hypertension Assessment and Plan: currently blood pressure is acceptable and based on her his blood pressure will decide his home medication needs to be restarted after verification (10) Gastroesophageal reflux disease with esophagitis Code(s): K21.00 - GASTRO-ESOPHAGEAL REFLUX DIS WITH ESOPHAGITIS, WITHOUT BLEED Status: Chronic Qualifiers: Esophagitis bleeding: without hemorrhage Qualified Code(s): K21.00 - Gastro-esophageal reflux disease with esophagitis, without bleeding Assessment and Plan: CT angios showing thoracic part of esophagus is thickening, most likely related with GERD, will start Protonix 40 mg p.o. daily (11) BPH (benign prostatic hyperplasia) Code(s): N40.0 - BENIGN PROSTATIC HYPERPLASIA WITHOUT LOWER URINRY TRACT SYMP Status: Chronic Qualifiers: Lower urinary tract symptom presence: symptoms absent Qualified Code(s): N40.0 - Benign prostatic hyperplasia without lower urinary tract symptoms Assessment and Plan: We will resume his home medication including Flomax - Plan Plan: Plan Please see him each and every problem list for plan mentioned in there respective section. In short patient will need his remdesivir evaluation, watch for any deterioration, vitamin supplementation, his home medication will be reconciled, DVT prophylaxis Lovenox 40 mg subcu daily GI prophylaxis Protonix 40 mg p.o. daily CODE STATUS patient is full code patient does not any surrogate decision-maker Disposition plan based on clinical course were expecting patient stay in hospital more than 2 midnights.
[2020-07-25] MEDS ORDERED: Ondansetron ODT 4 MG TAB PO PRN (12:06)
[2020-07-25] MEDS ORDERED: Calcium Carbonate 500 MG ChewTAB PO PRN (12:06)
[2020-07-25] MEDS ORDERED: Acetaminophen 325 MG TAB PO PRN (12:06)
[2020-07-25] MEDS ORDERED: Zolpidem Tartrate 5 MG TAB PO PRN (12:06)
[2020-07-25] MEDS ORDERED: Diabetic Tussin 200 MG/10 ML UDCUP PO PRN (12:06)
[2020-07-25] MEDS ORDERED: Labetalol HCl 100 MG/20 ML VIAL SLOW IVP PRN (12:06)
[2020-07-25] MEDS ORDERED: Dextrose 5% in Water 1,000 ML IV PRN (12:06)
[2020-07-25] MEDS ORDERED: Senokot S 8.6-50 MG TAB PO PRN (12:06)
[2020-07-25] MEDS ORDERED: Sodium Chloride 0.65% Nasal 44 ML BOT EA NARE PRN (12:06)
[2020-07-25] MEDS ORDERED: Benzonatate 100 MG CAP PO PRN (12:06)
[2020-07-25] MEDS ORDERED: Cepastat Lozenges 1 LOZ PO PRN (12:06)
[2020-07-25] MEDS ORDERED: Loperamide HCl 2 MG CAP PO PRN (12:06)
[2020-07-25] MEDS ORDERED: Ondansetron PF 4 MG/2 ML Vial IVP PRN (12:06)
[2020-07-25] MEDS ORDERED: Dextrose 50% Abboject 50 ML SYRINGE SLOW IVP PRN (12:06)
[2020-07-25] MEDS ORDERED: Guaifenesin DM 100-10/5 ML UDCUP PO PRN (12:06)
[2020-07-25] MEDS ORDERED: Loratadine 10 MG TAB PO PRN (12:06)
[2020-07-25] MEDS ORDERED: Aspirin Chewable 81 MG TAB ONE (12:11)
[2020-07-25] MEDS ORDERED: Zinc Sulfate 220 MG CAP PO SCH (12:30)
[2020-07-25] MEDS ORDERED: Ascorbic Acid 500 mg Chewable Tablet PO SCH (12:30)
[2020-07-25] MEDS ORDERED: Dexamethasone 4 MG TAB PO SCH (12:30)
[2020-07-25 13:02] VITALS: BMI 30.2
[2020-07-25] MEDS ORDERED: Iopamidol-370 76% 500 ML 1 ML ONE (15:01)
[2020-07-25] MEDS ORDERED: Dexamethasone 4 MG TAB ONE (15:04)
[2020-07-25 15:06] LABS: Troponin I 0.043 ng/mL (< 0.028)
[2020-07-25 16:35] LABS: Bacteria/HPF None Seen HPF (None Seen); Bilirubin Negative (Negative); Blood, Urine 1+ (Negative); Clarity Clear (Clear); Glucose, Urine (Dipstick) 500 mg/dL (Negative); Ketone, Urine Negative (Negative); Leukocyte Negative Leu/uL (Negative); Nitrite Negative (Negative); Protein, Urine (Dipstick) 30 mg/dL (Neg-Trace); RBC/HPF None Seen HPF (0-3); Squamous Epithelial None Seen HPF (0-3); Urobilinogen Normal mg/dL (Less than 2); WBC/HPF 0-3 HPF (0-3)
[2020-07-25] MEDS: HumaLOG 300 UNITS/3 ML VIAL SC PRN (18:36)
[2020-07-25] MEDS ORDERED: Albuterol Sulfate 2.5 mg/3 ml Neb NEB PRN (18:45)
--- NOTE | 2020-07-25 18:47 | PRG ---
DATE OF SERVICE: 07/25/2020 I have discussed the remdesivir protocol with Mr. Quevedo. He accepted treatment as well as the convalescent plasma administration. I have discussed potential adverse reactions and monitoring implemented for early detection if they occur, although, it is usually well-tolerated. Job ID: [id number]
[2020-07-25] MEDS ORDERED: Metoprolol Tartrate 5 MG/5 ML VIAL IVP SCH (19:00)
[2020-07-25] MEDS ORDERED: Albuterol 200 PUFF (6.7GM INHALER) INH PRN (19:23)
[2020-07-25] MEDS ORDERED: REMDESIVIR (EUA) 200 MG in Sodium Chloride 0.9% 250 ML 210 ML IV SCH (21:00)
[2020-07-25] MEDS: Insulin Glargine 20 UNITS in Pre-Filled Syringe SC SCH (22:34)
--- NOTE | 2020-07-26 00:17 | CON ---
DATE OF CONSULTATION: 07/25/2020 This is a consult note in reference to COVID infection. HISTORY OF PRESENT ILLNESS: A 64-year-old, whom I had treated in the past for sternoclavicular infection. He also has a history of mental retardation, type 2 diabetes, hypertension, and neuropathy, and he is a resident at a local assisted, I believe [facility], and he developed respiratory symptoms on Wednesday and on Wednesday, tested positive for SARS-CoV-2 virus and he was kept in a assisted, but symptoms worsened and he was then transferred over here and currently Mr. Quevedo is tachypneic. He has nasal cannula O2 at 2 L. He has quite a bit of dysarthria and it was very hard to obtain a full history, but he was able to answer specific questions. He denies any headaches. No chest pain. No abdominal pain. Voiding in the urinal without any difficulty. No pain in the appendicular structures. PAST MEDICAL HISTORY: Type 2 diabetes, hypertension, sternoclavicular joint infection with bacteremia in 2012, and neuropathy. PAST SURGICAL HISTORY: Includes hernia repair, cataracts, and first toe amputation. FAMILY HISTORY: Noncontributory. SOCIAL HISTORY: assisted resident. Never smoker. ALLERGIES: NONE. CURRENT MEDICATIONS: 1. Vitamin C. 2. Azithromycin. 3. Rocephin. 4. Decadron. 5. Insulin. PHYSICAL EXAMINATION: VITAL SIGNS: T-max 97.9, BP 130/90, heart rate 105, breathing 25 times a minute, and saturating 97% at 2 L, and when I went in the room, was more like down to 2; anytime he was more active, talking, and moving, it would go up to 97%, so I bumped his nasal cannula O2 to 3 L. SKIN: Shows no areas of skin breakdown. Peripheral IV access is voiding spontaneously. No lymphadenopathy. HEENT: Ocular movements conjugate. Still quite a few teeth in place with quite a bit of decay and gum disease. NECK: Supple. There is no jugular vein distention. LUNGS: Symmetric air entry with few crackles at the bases. HEART: S1 and S2, regular rate. No murmurs. ABDOMEN: Soft, not distended or tender. No ascites. No bladder distention. EXTREMITIES: No joint inflammatory activity. Pulses 1+ in dorsalis pedis. No edema. Plantar responses are flexor. Moves extremities equally. NEUROLOGIC: He is awake, oriented, and pleasant. Dysarthria, which is a chronic problem. Difficult to communicate with him because of his speech impairment. He is alert, follow commands. LABORATORY DATA: White cell count 9.7, hemoglobin 13, platelets 221 with 89% neutrophils. Sodium 128, creatinine 0.65. Liver profile normal. Albumin 3.7, globulin 4.0. Urinalysis was normal. Chest CTA with scattered bilateral ground-glass opacity changes in both right and left lung alegria, mostly at the bases. ASSESSMENT: Type 2 diabetes; cognitive dysfunction, chronic and congenital; and COVID pneumonia, moderate. DISCUSSION: The patient is eligible for remdesivir, will go ahead and get started. We will also give him some convalescent plasma. Continue Decadron. Discontinue Rocephin, azithromycin. Monitor inflammatory markers. Job ID: [id number]
[2020-07-26 05:14] LABS: #Lymphocytes 0.8 thou/uL (1.20-3.40); #Monocytes 0.4 thou/uL (0.11-0.59); #Neutrophils 8.8 thou/uL (1.40-6.50); %Monocytes 4.2 % (0.0-10.0); %Neutrophils 87.8 % (42.0-75.0); Hemoglobin 13.8 g/dL (14.0-18.0); Mean Corpuscular HGB CONC 34.2 g/dL (32.0-36.0); Mean Corpuscular Volume 87.5 fL (78.0-98.0); Mean Platelet Volume 8.3 fL (7.4-10.4); Platelet Count 231 thou/uL (130-400); Red Blood Cell (RBC) Count 4.62 mill/uL (4.70-6.10); White Blood Cell (WBC) Count 10.1 thou/uL (4.8-10.8)
[2020-07-26 05:48] LABS: ALT (SGPT) 22 U/L (8-55); AST (SGOT) 23 U/L (5-34); Albumin 3.4 g/dL (3.4-4.8); Alkaline Phosphatase 63 U/L (40-110); Anion Gap 17 mmol/L (10-20); BUN (Urea Nitrogen) 18 mg/dL (8.4-25.7); Bilirubin, Total 0.3 mg/dL (0.2-1.2); CRP (Inflammatory) 8.82 mg/dL (= or < 0.5); Calc. Creatinine Clearance 120 mL/min (70-130); Calcium 7.7 mg/dL (7.8-10.44); Carbon Dioxide 18 mmol/L (23-31); Chloride 103 mmol/L (98-107); Estimated GFR-MDRD Greater than 90; Globulin 3.5 g/dL (2.4-3.5); Glucose 242 mg/dL (80-115); Potassium 3.6 mmol/L (3.5-5.1); Protein, Total 6.9 g/dL (5.8-8.1); Sodium 134 mmol/L (136-145)
[2020-07-26] MEDS: HumaLOG 300 UNITS/3 ML VIAL SC PRN ×4 (05:55→20:47)
[2020-07-26] MEDS: Dexamethasone 4 MG TAB PO SCH (07:32)
[2020-07-26] MEDS: Ascorbic Acid 500 mg Chewable Tablet PO SCH (07:39)
[2020-07-26] MEDS: Zinc Sulfate 220 MG CAP PO SCH (07:43)
[2020-07-26] MEDS: Saccharomyces boulardii 250 MG CAP PO SCH (07:43)
[2020-07-26] MEDS ORDERED: Enoxaparin Sodium 40 MG/0.4 ML SYRINGE SC SCH ×2 (09:00→21:00)
[2020-07-26] MEDS ORDERED: cefTRIAXone\\ROCEPHIN 1 GM in Sodium Chloride 0.9% 100 ML IVPB SCH (09:00)
[2020-07-26] MEDS ORDERED: FLU VACC QS2020-21(65YR UP)/PF 240 MCG/0.7 ML SYRINGE IM ONE (09:00)
[2020-07-26] MEDS ORDERED: Aspirin 81 mg Enteric Coated Tablet PO SCH (09:00)
[2020-07-26] MEDS: Insulin Glargine 20 UNITS in Pre-Filled Syringe SC SCH ×2 (09:04→20:14)
[2020-07-26] MEDS ORDERED: Azithromycin 500 MG in Sodium Chloride 0.9% 250 ML 250 ML IVPB SCH (10:00)
[2020-07-26 11:19] LABS: SARS-CoV-2 N Gene Positive; SARS-CoV-2 by NAA DETECTED (NotDetected); SARS-CoV-2 orf1ab Positive
[2020-07-26 11:20] LABS: SARS-CoV-2 MS2 Positive; SARS-CoV-2 S Gene Positive
[2020-07-26] MEDS ORDERED: Metoprolol Tartrate 25 MG TAB PO SCH ×2 (12:00→21:00)
[2020-07-26] MEDS ORDERED: Acetaminophen 500 MG TAB PO PRN (13:25)
[2020-07-26] MEDS ORDERED: Ondansetron ODT 4 MG TAB PO PRN (13:28)
[2020-07-26 14:39] LABS: CKMB 12.5 ng/mL (0-6.6)
--- NOTE | 2020-07-26 18:36 | CON ---
DATE OF CONSULTATION: 07/26/2020 REASON FOR CONSULTATION: Chest pain. HISTORY OF PRESENT ILLNESS: Mr. Quevedo is a pleasant 64-year-old gentleman who comes [facility] the hospital from the [facility] for worsening shortness of breath and chest pain. He was diagnosed with COVID-19 Wednesday of this week, today is Wednesday. He developed worsening symptoms to the point where he needed to come in for evaluation. He was found to have COVID-19 pneumonia, typical presentation, already being started on remdesivir and convalescent plasma therapies by Dr. Yun. Cardiology has been consulted as he had episode of chest pain. He has been vomiting as well as coughing a whole lot. He feels that the pain is related to the COVID, I would have to agree with him. At this point, he is not having any more chest pain for now and is already feeling a little bit better. He has since gone into afib so cardiology was consulted for this. Heart rate in the 100's to 140's. PAST MEDICAL HISTORY: 1. Type 2 diabetes. 2. Hypertension. 3. Sternoclavicular joint infection with bacteremia in 2012. 4. Neuropathy. PAST SURGICAL HISTORY: 1. Hernia repair. 2. Cataracts. 3. First toe amputation. FAMILY HISTORY: Noncontributory. SOCIAL HISTORY: Resides in a [facility]. No alcohol, tobacco, or drugs. ALLERGIES: NO KNOWN DRUG ALLERGIES. OUTPATIENT MEDICATIONS: 1. Vitamin C. 2. Azithromycin. 3. Rocephin. 4. Decadron. 5. Insulin. REVIEW OF SYSTEMS: A 12-point review of systems was done and was found to be negative other than stated in the history of present illness. PHYSICAL EXAMINATION: VITAL SIGNS: Temperature 98.2, pulse 102, respiratory rate 20, saturating 96% on 2 L nasal cannula, blood pressure 150/84. The rest of physical exam was not performed due to the COVID-19 acute infection and this being a telemedicine evaluation. LABORATORY DATA: Laboratory work was reviewed. CBC with a white count of 10, hemoglobin 13, hematocrit 40, and platelet count 231. Coags were reviewed. Chemistries were reviewed. Troponin was 0.04 with a CK-MB of 12.5 and a CK of 575. UA was reviewed. COVID-19 PCR was positive. EKG was reviewed. CT of the chest was reviewed. ASSESSMENT: 1. Chest pain. Likely related to COVID-19 pneumonia. He has been coughing a whole lot including nausea and vomiting. 2. Atrial fibrillation with rapid ventricular response. PLAN: 1. We will do an echocardiogram to evaluate LV function, valvular structures. 2. No invasive interventions planned at this time. He has to get over his COVID-19 pneumonia before any further risk stratification is planned. 3. Currently, he is hemodynamically stable. High likelihood of coronary artery disease given his risk factors with diabetes and vascular calcifications seen on the CAT scan. However, no obvious evidence of an acute coronary syndrome at this time and he is pain-free at this time. 4. Will start amiodarone drip for afib. 5. Will recommend full anticoagulation for both COVID 19 and afib for stroke prophylaxis. Thank you for letting us to participate in the care of your patient. We will follow. Job ID: [id number] MTDD
[2020-07-26] MEDS: Atorvastatin Calcium 20 MG TAB PO SCH (20:12)
[2020-07-26] MEDS: HYDROcodone/Acetaminophen 5/325 mg Tablet PO PRN (20:12)
[2020-07-26] MEDS: guaiFENesin ER 600 MG TAB PO SCH (20:13)
[2020-07-26] MEDS: Enoxaparin Sodium 80 MG/0.8 ML SYRINGE SC SCH (20:14)
[2020-07-26] MEDS: Amiodarone 450 MG in Dextrose 5% in Water 250 ML IVPB SCH (20:15)
--- NOTE | 2020-07-26 20:25 | PDOC.HOSPP ---
- Subjective Encounter Date: 07/26/20 Encounter Time: 15:00 Subjective: Patient seen and examined for respiratory failure due to COVID-19 pneumonia. No significant change in shortness of breath. Denies any fever or chills. No nausea vomiting reported. - Objective Vital Signs & Weight: Vital Signs (12 hours) Temp Pulse Pulse Resp BP BP Pulse Ox 07/26/20 17:40 96.4 F L 119 H 20 136/80 94 L 07/26/20 16:00 98.2 F 102 H 20 96 07/26/20 15:52 98.2 F 102 H 20 150/84 H 96 07/26/20 11:30 90 L 07/26/20 11:08 24 H 97 07/26/20 11:05 96.3 F L 126 H 36 H 146/71 H 90 L Weight Weight 155 lb I&O: 07/25/20 07/26/20 07/27/20 06:59 06:59 06:59 Intake Total 990 1740 Output Total 1024 2150 Balance -35 -410 Result Diagrams: 07/27/20 04:51 07/27/20 04:51 Additional Labs: Accuchecks 07/25/20 21:32 POC Glucose 256 H Abnormal Lab Results - Last 48 hrs 07/25/20 08:33: RBC 4.56 L, Hgb 13.5 L, Hct 39.7 L, Neutrophils % 89.2 H, Lymphocytes % 7.3 L, Neutrophils # 8.6 H, Lymphocytes # 0.7 L 07/25/20 08:33: Troponin I 0.031 H 07/25/20 08:33: Sodium 128 L, Carbon Dioxide 15 L, Creatinine 0.65 L, Globulin 4.0 H, Albumin/Globulin Ratio 0.9 L 07/25/20 11:22: Troponin I 0.040 H 07/25/20 14:30: Troponin I 0.043 H 07/25/20 16:10: Urine Protein 30 A, Urine Glucose (UA) 500 A, Urine Blood 1+ A 07/25/20 22:29: SARS-CoV-2 (PCR) DETECTED A* 07/26/20 05:01: Sodium 134 L, Carbon Dioxide 18 L, Creatinine 0.61 L, Calcium 7.7 L, C-Reactive Protein 8.82 H, Albumin/Globulin Ratio 1.0 L 07/26/20 05:01: Lactate Dehydrogenase 338 H 07/26/20 05:01: RBC 4.62 L, Hgb 13.8 L, Hct 40.4 L, Neutrophils % 87.8 H, Lymphocytes % 8.0 L, Neutrophils # 8.8 H, Lymphocytes # 0.8 L 07/26/20 05:01: D-Dimer 3.30 H 07/26/20 13:32: CK-MB (CK-2) 12.5 H*, Troponin I 0.046 H 07/26/20 13:32: Creatine Kinase 575 H Microbiology - Entire Visit 07/25/20 08:33 Venous blood - Right Hand Blood Culture - Preliminary Specimen has been received and culture in progress. No Growth to date. 07/25/20 08:44 Venous blood - Left Arm Blood Culture - Preliminary Specimen has been received and culture in progress. No Growth to date. EKG Reviewed by me: Yes (Atrial fibrillation on telemetry) Hospitalist ROS - Review of Systems Gastrointestinal: denies: nausea, vomiting, abdominal pain, diarrhea, con stipation, melena, hematochezia, other Genitourinary: denies: dysuria, frequency, incontinence, hematuria, retention, other - Medication Medications: Active Medications Generic Name Dose Route Start Last Admin Trade Name Freq PRN Reason Stop Dose Admin Ascorbic Acid 1,000 mg 07/26/20 09:00 07/26/20 07:39 Ascorbic Acid 500 Mg Chewable Tablet PO 1,000 mg DAILY SHANIQUA Administration Dexamethasone 6 mg 07/26/20 08:00 07/26/20 07:32 Dexamethasone 4 Mg Tab PO 6 mg QAM-WM SHANIQUA Administration Insulin Glargine 20 units/ 0.2 mls @ 0 mls/hr 07/25/20 21:00 07/25/20 22:34 Miscellaneous Medication SC 0.2 mls HS SHANIQUA Administration Insulin Glargine 20 units/ 0.2 mls @ 0 mls/hr 07/26/20 09:00 07/26/20 09:04 Miscellaneous Medication SC 0.2 mls QAM SHANIQUA Administration Insulin Human Lispro 0 units 07/25/20 12:06 07/26/20 18:00 Humalog 300 Units/3 Ml Vial SC 6 unit .MODERATE SLIDING SC PRN Administration Moderate Correctional Scale Pantoprazole Sodium 40 mg 07/26/20 09:00 07/26/20 07:42 Pantoprazole 40 Mg Tab PO 40 mg DAILY SHANIQUA Administration Saccharomyces Boulardii 250 mg 07/26/20 09:00 07/26/20 07:43 Saccharomyces Boulardii 250 Mg Cap PO 250 mg DAILY SHANIQUA Administration Zinc Sulfate 220 mg 07/26/20 09:00 07/26/20 07:43 Zinc Sulfate 220 Mg Cap PO 220 mg DAILY SHANIQUA Administration - Exam General Appearance: ill appearing Neck: supple, no JVD Heart: RRR, no gallops, no rubs Respiratory: normal chest expansion, rales, rhonchi, tachypneic Gastrointestinal: soft, normal bowel sounds, no guarding, no rigidity Extremities: no cyanosis, no clubbing, no edema Extremities - other findings: No calf tenderness Neurological: no new deficit Hosp A/P - Plan DVT proph w/lovenox Acute hypoxic respiratory failure due to COVID-19 pneumonia New onset atrial fibrillation with rapid ventricular response Diabetes mellitus type 2 Hypertension Other issues per H&P Plan: Continue O2 supplementation. Continue remdesivir. S/p convalescent plasma. Continue inhalers. Continue current dose of Lantus with sliding scale. Restart Toprol-XL at home dose. Cardiology consultation due to new onset atrial fibrillation. Increase Lovenox to 40 mg twice daily. Continue other medications as above. Patient understands above plan of care.
[2020-07-26] MEDS: REMDESIVIR (EUA) 100 MG in Sodium Chloride 0.9% 250 ML 230 ML IV SCH (20:27)
[2020-07-26] MEDS ORDERED: Tamsulosin HCl 0.4 MG CAP PO SCH (21:00)
[2020-07-27 05:12] LABS: #Lymphocytes 1.3 thou/uL (1.20-3.40); #Monocytes 0.5 thou/uL (0.11-0.59); #Neutrophils 7.9 thou/uL (1.40-6.50); %Lymphocytes 13.6 % (21.0-51.0); %Monocytes 5.4 % (0.0-10.0); Hemoglobin 13.2 g/dL (14.0-18.0); Mean Corpuscular HGB CONC 34.3 g/dL (32.0-36.0); Mean Corpuscular Hemoglobin 29.9 pg (27.0-31.0); Mean Corpuscular Volume 87.2 fL (78.0-98.0); Platelet Count 240 thou/uL (130-400); Red Blood Cell (RBC) Count 4.42 mill/uL (4.70-6.10); White Blood Cell (WBC) Count 9.7 thou/uL (4.8-10.8)
[2020-07-27 05:34] LABS: ALT (SGPT) 23 U/L (8-55); AST (SGOT) 30 U/L (5-34); Albumin 3.2 g/dL (3.4-4.8); Alkaline Phosphatase 60 U/L (40-110); Anion Gap 11 mmol/L (10-20); BUN (Urea Nitrogen) 16 mg/dL (8.4-25.7); Bilirubin, Total 0.3 mg/dL (0.2-1.2); CRP (Inflammatory) 5.38 mg/dL (= or < 0.5); Calc. Creatinine Clearance 128 mL/min (70-130); Carbon Dioxide 22 mmol/L (23-31); Chloride 103 mmol/L (98-107); Estimated GFR-MDRD Greater than 90; Globulin 3.2 g/dL (2.4-3.5); Glucose 187 mg/dL (80-115); Magnesium 1.8 mg/dL (1.6-2.6); Phosphorus 2.2 mg/dL (2.3-4.7); Protein, Total 6.4 g/dL (5.8-8.1); Sodium 133 mmol/L (136-145)
[2020-07-27] MEDS: HumaLOG 300 UNITS/3 ML VIAL SC PRN ×4 (06:12→21:48)
[2020-07-27] MEDS: Amiodarone 450 MG in Dextrose 5% in Water 250 ML IVPB SCH ×2 (06:48→21:46)
[2020-07-27] MEDS: HYDROcodone/Acetaminophen 5/325 mg Tablet PO PRN (06:54)
[2020-07-27] MEDS: Zinc Sulfate 220 MG CAP PO SCH (07:23)
[2020-07-27] MEDS: Ascorbic Acid 500 mg Chewable Tablet PO SCH (07:23)
[2020-07-27] MEDS: Multivit, Therapeutic 1 TAB PO SCH (07:23)
[2020-07-27] MEDS: Saccharomyces boulardii 250 MG CAP PO SCH (07:23)
[2020-07-27] MEDS: Finasteride 5 MG TAB PO SCH (07:23)
[2020-07-27] MEDS: Aspirin 81 mg Enteric Coated Tablet PO SCH (07:23)
[2020-07-27] MEDS: Dexamethasone 4 MG TAB PO SCH (07:24)
[2020-07-27] MEDS: Tamsulosin HCl 0.4 MG CAP PO SCH (07:25)
[2020-07-27] MEDS: guaiFENesin ER 600 MG TAB PO SCH ×2 (07:25→20:40)
[2020-07-27] MEDS: Cyanocobalamin (Vitamin B-12) 1,000 MCG TAB PO SCH (07:26)
[2020-07-27] MEDS: Polyethylene Glycol 3350 17 GM Packet PO SCH (07:27)
[2020-07-27] MEDS: Loratadine 10 MG TAB PO SCH (07:27)
[2020-07-27] MEDS: Enoxaparin Sodium 80 MG/0.8 ML SYRINGE SC SCH ×2 (07:27→20:41)
[2020-07-27] MEDS ORDERED: Potassium Phosphate 15 MMOL in Sodium Chloride 0.9% 250 ML 250 ML IVPB SCH (08:15)
[2020-07-27] MEDS ORDERED: Magnesium 2 GM/50 ML 2 GM in Premix Bag 1 BAG IVPB SCH (08:15)
[2020-07-27] MEDS ORDERED: Magnesium Sulfate 2 GM in Sodium Chloride 0.9% 100 ML IVPB SCH (08:15)
[2020-07-27] MEDS: Insulin Glargine 20 UNITS in Pre-Filled Syringe SC SCH ×2 (08:54→20:41)
--- NOTE | 2020-07-27 13:20 | PDOC.CPN ---
- Subjective Date: 07/27/20 Time: 13:18 Interval history: No new issues. - Review of Systems ROS unobtainable: due to mental status - Objective Allergies/Adverse Reactions: Allergies Allergy/AdvReac Type Severity Reaction Status Date / Time No Known Allergies Allergy Verified 07/25/20 13:01 Visit Medications: Current Medications Acetaminophen (Acetaminophen 500 Mg Tab) 500 mg PO Q4H PRN PRN Reason: Fever/Mild Pain Hydrocodone Bitart/Acetaminophen (Hydrocodone/Acetaminophen 5/325 Mg Tablet) 1 tab PO Q4H PRN PRN Reason: Moderate Pain (4-6) Last Admin: 07/27/20 06:54 Dose: 1 tab Documented by: Albuterol Sulfate (Albuterol 200 Puff (6.7gm Inhaler)) 2 puff INH Q6H PRN PRN Reason: SOB &/or Wheezing Ascorbic Acid (Ascorbic Acid 500 Mg Chewable Tablet) 1,000 mg PO DAILY [facility] Last Admin: 07/27/20 07:23 Dose: 1,000 mg Documented by: Aspirin (Aspirin 81 Mg Enteric Coated Tablet) 81 mg PO DAILY [facility] Last Admin: 07/27/20 07:23 Dose: 81 mg Documented by: Atorvastatin Calcium (Atorvastatin Calcium 20 Mg Tab) 20 mg PO HS [facility] Last Admin: 07/26/20 20:12 Dose: 20 mg Documented by: Benzonatate (Benzonatate 100 Mg Cap) 100 mg PO Q6H PRN PRN Reason: Cough Calcium Carbonate (Calcium Carbonate 500 Mg Chewtab) 1,000 mg PO Q4H PRN PRN Reason: Heartburn or Indigestion Cyanocobalamin (Cyanocobalamin (Vitamin B-12) 1,000 Mcg Tab) 500 mcg PO DAILY [facility] Last Admin: 07/27/20 07:26 Dose: 500 mcg Documented by: Dexamethasone (Dexamethasone 4 Mg Tab) 6 mg PO QAM-WM [facility] Last Admin: 07/27/20 07:24 Dose: 6 mg Documented by: Dextrose/Water (Dextrose 50% Abboject 50 Ml Syringe) 25 gm SLOW IVP PRN PRN PRN Reason: Hypoglycemia Enoxaparin Sodium (Enoxaparin Sodium 80 Mg/0.8 Ml Syringe) 70 mg SC 0900,2100 [facility] Last Admin: 07/27/20 07:27 Dose: 70 mg Documented by: Finasteride (Finasteride 5 Mg Tab) 5 mg PO DAILY [facility] Last Admin: 07/27/20 07:23 Dose: 5 mg Documented by: Glucagon (Glucagon 1 Mg/Ml Vial) 1 mg IM PRN PRN PRN Reason: Hypoglycemia Guaifenesin (Diabetic Tussin 200 Mg/10 Ml Udcup) 200 mg PO Q4H PRN PRN Reason: Cough Guaifenesin (Guaifenesin Er 600 Mg Tab) 600 mg PO Q12HR [facility] Last Admin: 07/27/20 07:25 Dose: 600 mg Documented by: Guaifenesin/Dextromethorphan (Guaifenesin Dm 100-10/5 Ml Udcup) 15 ml PO Q4H PRN PRN Reason: Cough Insulin Glargine 20 units/ (Miscellaneous Medication) 0.2 mls @ 0 mls/hr SC HS [facility] Last Admin: 07/26/20 20:14 Dose: 0.2 mls Documented by: Insulin Glargine 20 units/ (Miscellaneous Medication) 0.2 mls @ 0 mls/hr SC QAM [facility] Last Admin: 07/27/20 08:54 Dose: 0.2 mls Documented by: Dextrose/Water (D5w) 1,000 mls @ 0 mls/hr IV .Q0M PRN PRN Reason: Hypoglycemia Remdesivir 100 mg/ Sodium (Chloride) 250 mls @ 250 mls/hr IV 2100 [facility] Stop: 07/29/20 21:59 Last Admin: 07/26/20 20:27 Dose: 250 mls Documented by: Amiodarone HCl 450 mg/ (Dextrose/Water) 259 mls @ 0 mls/hr IVPB INF [facility]; Protocol Last Admin: 07/27/20 06:48 Dose: 259 mls Documented by: Potassium Phosphate 15 mmol/ (Sodium Chloride) 255 mls @ 62.5 mls/hr IVPB NOW [facility] Stop: 07/27/20 14:00 Last Admin: 07/27/20 10:51 Dose: 255 mls Documented by: Insulin Human Lispro (Humalog 300 Units/3 Ml Vial) 0 units SC .MODERATE SLIDING SC PRN PRN Reason: Moderate Correctional Scale Last Admin: 07/27/20 11:05 Dose: 2 unit Documented by: Insulin Human Lispro (Humalog 300 Units/3 Ml Vial) 0 units SC .BEDTIME SLIDING SC PRN PRN Reason: Bedtime Correctional Scale Last Admin: 07/26/20 20:47 Dose: 3 unit Documented by: Isosorbide Mononitrate (Isosorbide Mononitrate Er 30 Mg Tab) 30 mg PO DAILY [facility] Last Admin: 07/27/20 07:27 Dose: 30 mg Documented by: Labetalol HCl (Labetalol Hcl 100 Mg/20 Ml Vial) 20 mg SLOW IVP Q4H PRN PRN Reason: SBP > 180 and HR >/= 70 Loperamide HCl (Loperamide Hcl 2 Mg Cap) 2 mg PO PRN PRN PRN Reason: Diarrhea/Loose Stools Loratadine (Loratadine 10 Mg Tab) 10 mg PO DAILYPRN PRN PRN Reason: Sinus Symptoms Loratadine (Loratadine 10 Mg Tab) 10 mg PO DAILY [facility] Last Admin: 07/27/20 07:27 Dose: 10 mg Documented by: Metoprolol Succinate (Metoprolol Succinate Xl 25 Mg Tab) 75 mg PO DAILY [facility] Last Admin: 07/27/20 07:25 Dose: 75 mg Documented by: Multivitamins (Multivit, Therapeutic 1 Tab) 1 tab PO DAILY [facility] Last Admin: 07/27/20 07:23 Dose: 1 tab Documented by: Ondansetron HCl (Ondansetron Pf 4 Mg/2 Ml Vial) 4 mg IVP Q6H PRN PRN Reason: Nausea/Vomiting Ondansetron HCl (Ondansetron Odt 4 Mg Tab) 4 mg PO Q6H PRN PRN Reason: Nausea/Vomiting Pantoprazole Sodium (Pantoprazole 40 Mg Tab) 40 mg PO DAILY [facility] Last Admin: 07/27/20 07:25 Dose: 40 mg Documented by: Polyethylene Glycol (Polyethylene Glycol 3350 17 Gm Packet) 17 gm PO DAILY [facility] Last Admin: 07/27/20 07:27 Dose: 17 gm Documented by: Saccharomyces Boulardii (Saccharomyces Boulardii 250 Mg Cap) 250 mg PO DAILY [facility] Last Admin: 07/27/20 07:23 Dose: 250 mg Documented by: Senna/Docusate Sodium (Senokot S 8.6-50 Mg Tab) 2 tab PO BID PRN PRN Reason: Constipation Sodium Chloride (Sodium Chloride 0.65% Nasal 44 Ml Bot) 0 ml EA NARE QIDPRN PRN PRN Reason: Nasal Congestion Sodium Chloride (Flush - Normal Saline 10 Ml Syringe) 10 ml IVF Q12HR [facility] Last Admin: 07/27/20 10:52 Dose: 10 ml Documented by: Sodium Chloride (Flush - Normal Saline 10 Ml Syringe) 10 ml IVF PRN PRN PRN Reason: Saline Flush Tamsulosin HCl (Tamsulosin Hcl 0.4 Mg Cap) 0.4 mg PO DAILY [facility] Last Admin: 07/27/20 07:25 Dose: 0.4 mg Documented by: Throat Lozenges (Cepastat Lozenges 1 Marc) 1 marc PO Q2H PRN PRN Reason: Sore Throat Zinc Sulfate (Zinc Sulfate 220 Mg Cap) 220 mg PO DAILY [facility] Last Admin: 07/27/20 07:23 Dose: 220 mg Documented by: Zolpidem Tartrate (Zolpidem Tartrate 5 Mg Tab) 5 mg PO HSPRN PRN PRN Reason: Insomnia Vital Signs & Weight: Vital Signs Temp Pulse Resp BP Pulse Ox 07/27/20 11:22 98.1 F 88 20 140/73 95 07/27/20 07:48 98.4 F 94 20 127/76 94 L 07/27/20 04:00 95 18 147/66 H 93 L Weight 155 lb - Physical Exam General: other (Deferred due to covid 19 infection.) - Labs Result Diagrams: 07/27/20 04:51 07/27/20 04:51 Troponin/CKMB CK-MB (CK-2) 12.5 ng/mL (0-6.6) H* 07/26/20 13:32 Troponin I 0.046 ng/mL (< 0.028) H 07/26/20 13:32 - Telemetry Supraventricular conduction: atrial fibrillation - Assessment/Plan Assessment/Plan: 1. COVID 19 pneumonia 2. Afib RVR PLAN: - Continue amiodarone drip. - Currently HR in the 90's to low 100's. 3 - Continue full anticoagulation with full dose lovenox for stroke prophylaxis.
[2020-07-27] MEDS: Atorvastatin Calcium 20 MG TAB PO SCH (20:40)
[2020-07-27] MEDS: REMDESIVIR (EUA) 100 MG in Sodium Chloride 0.9% 250 ML 230 ML IV SCH (21:46)
[2020-07-28 04:59] LABS: #Lymphocytes 0.5 thou/uL (1.20-3.40); #Monocytes 0.4 thou/uL (0.11-0.59); #Neutrophils 6.2 thou/uL (1.40-6.50); %Basophils 0.2 % (0.0-1.0); %Lymphocytes 6.8 % (21.0-51.0); %Monocytes 5.2 % (0.0-10.0); %Neutrophils 87.8 % (42.0-75.0); Hemoglobin 12.5 g/dL (14.0-18.0); Mean Corpuscular HGB CONC 33.8 g/dL (32.0-36.0); Mean Corpuscular Hemoglobin 29.7 pg (27.0-31.0); Mean Corpuscular Volume 87.9 fL (78.0-98.0); Mean Platelet Volume 8.2 fL (7.4-10.4); Platelet Count 235 thou/uL (130-400); RBC Distribution Width 12.1 % (11.5-14.5); White Blood Cell (WBC) Count 7.1 thou/uL (4.8-10.8)
[2020-07-28 05:59] LABS: ALT (SGPT) 25 U/L (8-55); AST (SGOT) 24 U/L (5-34); Albumin 3.1 g/dL (3.4-4.8); Alkaline Phosphatase 68 U/L (40-110); Anion Gap 13 mmol/L (10-20); BUN (Urea Nitrogen) 19 mg/dL (8.4-25.7); Bilirubin, Total 0.3 mg/dL (0.2-1.2); Calc. Creatinine Clearance 113 mL/min (70-130); Calcium 7.6 mg/dL (7.8-10.44); Carbon Dioxide 22 mmol/L (23-31); Chloride 105 mmol/L (98-107); Estimated GFR-MDRD Greater than 90; Glucose 321 mg/dL (80-115); Magnesium 2.1 mg/dL (1.6-2.6); Phosphorus 2.9 mg/dL (2.3-4.7); Protein, Total 6.1 g/dL (5.8-8.1); Sodium 136 mmol/L (136-145)
[2020-07-28] MEDS: HumaLOG 300 UNITS/3 ML VIAL SC PRN ×5 (06:29→21:05)
--- NOTE | 2020-07-28 07:49 | PDOC.HOSPP ---
- Subjective Encounter Date: 07/27/20 Encounter Time: 17:30 Subjective: Patient seen and examined for respiratory failure due to COVID-19 pneumonia. Denies any chest pain or worsening shortness of breath. No palpitations or syncope reported. - Objective Vital Signs & Weight: Vital Signs (12 hours) Temp Pulse Resp BP Pulse Ox 07/28/20 04:00 92 18 111/60 94 L 07/28/20 00:00 105 H 18 120/69 94 L 07/27/20 20:00 97.9 F 92 126/74 94 L Weight Weight 155 lb I&O: 07/27/20 07/28/20 07/29/20 06:59 06:59 06:59 Intake Total 2455 1590 Output Total 3150 900 Balance -695 690 Result Diagrams: 07/28/20 04:42 07/28/20 04:41 Additional Labs: Accuchecks 07/27/20 07/27/20 07/26/20 18:14 11:03 12:49 POC Glucose 245 H 187 H 256 H EKG Reviewed by me: Yes (Atrial fibrillation on telemetry) Hospitalist ROS - Review of Systems Respiratory: reports: cough, dry, SOB with excertion Cardiovascular: denies: chest pain, palpitations, orthopnea, paroxysmal noc. dyspnea, edema, light headedness, other Gastrointestinal: denies: nausea, vomiting, abdominal pain, diarrhea, constipation, melena, hematochezia, other - Medication Medications: Active Medications Generic Name Dose Route Start Last Admin Trade Name Freq PRN Reason Stop Dose Admin Hydrocodone Bitart/Acetaminophen 1 tab 07/25/20 12:06 07/27/20 06:54 Hydrocodone/Acetaminophen 5/325 Mg Tablet PO 1 tab Q4H PRN Administration Moderate Pain (4-6) Ascorbic Acid 1,000 mg 07/26/20 09:00 07/27/20 07:23 Ascorbic Acid 500 Mg Chewable Tablet PO 1,000 mg DAILY [facility] Administration Aspirin 81 mg 07/27/20 09:00 07/27/20 07:23 Aspirin 81 Mg Enteric Coated Tablet PO 81 mg DAILY [facility] Administration Atorvastatin Calcium 20 mg 07/26/20 21:00 07/27/20 20:40 Atorvastatin Calcium 20 Mg Tab PO 20 mg HS [facility] Administration Cyanocobalamin 500 mcg 07/27/20 09:00 07/27/20 07:26 Cyanocobalamin (Vitamin B-12) 1,000 Mcg Tab PO 500 mcg DAILY [facility] Administration Dexamethasone 6 mg 07/26/20 08:00 07/27/20 07:24 Dexamethasone 4 Mg Tab PO 6 mg QAM-WM [facility] Administration Enoxaparin Sodium 70 mg 07/26/20 21:00 07/27/20 20:41 Enoxaparin Sodium 80 Mg/0.8 Ml Syringe SC 70 mg 0900,2100 [facility] Administration Finasteride 5 mg 07/27/20 09:00 07/27/20 07:23 Finasteride 5 Mg Tab PO 5 mg DAILY [facility] Administration Guaifenesin 600 mg 07/26/20 21:00 07/27/20 20:40 Guaifenesin Er 600 Mg Tab PO 600 mg Q12HR [facility] Administration Insulin Glargine 20 units/ 0.2 mls @ 0 mls/hr 07/25/20 21:00 07/27/20 20:41 Miscellaneous Medication SC 0.2 mls HS [facility] Administration Insulin Glargine 20 units/ 0.2 mls @ 0 mls/hr 07/26/20 09:00 07/27/20 08:54 Miscellaneous Medication SC 0.2 mls QAM [facility] Administration Remdesivir 100 mg/ Sodium 250 mls @ 250 mls/hr 07/26/20 21:00 07/27/20 21:46 Chloride IV 07/29/20 21:59 250 mls 2100 [facility] Administration Amiodarone HCl 450 mg/ 259 mls @ 0 mls/hr 07/26/20 19:15 07/27/20 21:46 Dextrose/Water IVPB 259 mls INF [facility] Administration Protocol Per Protocol Insulin Human Lispro 0 units 07/25/20 12:06 07/28/20 06:29 Humalog 300 Units/3 Ml Vial SC 8 unit .MODERATE SLIDING SC PRN Administration Moderate Correctional Scale Insulin Human Lispro 0 units 07/25/20 12:06 07/27/20 21:48 Humalog 300 Units/3 Ml Vial SC 3 unit .BEDTIME SLIDING SC PRN Administration Bedtime Correctional Scale Isosorbide Mononitrate 30 mg 07/27/20 09:00 07/27/20 07:27 Isosorbide Mononitrate Er 30 Mg Tab PO 30 mg DAILY [facility] Administration Loratadine 10 mg 07/27/20 09:00 07/27/20 07:27 Loratadine 10 Mg Tab PO 10 mg DAILY [facility] Administration Metoprolol Succinate 75 mg 07/27/20 09:00 07/27/20 07:25 Metoprolol Succinate Xl 25 Mg Tab PO 75 mg DAILY [facility] Administration Multivitamins 1 tab 07/27/20 09:00 07/27/20 07:23 Multivit, Therapeutic 1 Tab PO 1 tab DAILY [facility] Administration Pantoprazole Sodium 40 mg 07/26/20 09:00 07/27/20 07:25 Pantoprazole 40 Mg Tab PO 40 mg DAILY [facility] Administration Polyethylene Glycol 17 gm 07/27/20 09:00 07/27/20 07:27 Polyethylene Glycol 3350 17 Gm Packet PO 17 gm DAILY [facility] Administration Saccharomyces Boulardii 250 mg 07/26/20 09:00 07/27/20 07:23 Saccharomyces Boulardii 250 Mg Cap PO 250 mg DAILY [facility] Administration Sodium Chloride 10 ml 07/27/20 09:00 07/27/20 21:47 Flush - Normal Saline 10 Ml Syringe IVF 10 ml Q12HR [facility] Administration Tamsulosin HCl 0.4 mg 07/27/20 09:00 07/27/20 07:25 Tamsulosin Hcl 0.4 Mg Cap PO 0.4 mg DAILY [facility] Administration Zinc Sulfate 220 mg 07/26/20 09:00 07/27/20 07:23 Zinc Sulfate 220 Mg Cap PO 220 mg DAILY [facility] Administration - Exam General Appearance: ill appearing Heart: RRR, no gallops Respiratory: rales, rhonchi Gastrointestinal: soft, non-tender, normal bowel sounds Extremities: no cyanosis Neurological: no new deficit Hosp A/P - Plan DVT proph w/lovenox Acute hypoxic respiratory failure due to COVID-19 pneumonia. On remdesivir. S /p convalescent plasma New onset atrial fibrillation with rapid ventricular responsestarted on amio darone drip on 07/27 Diabetes mellitus type 2 Hypertension Other issues per H&P Plan: Continue O2 supplementation with remdesivir. Continue albuterol. Continue current dose of Toprol XL with amiodarone drip. Continue anticoagulation with Lovenox. Patient understands the risk associated with anticoagulation. Cardiology input appreciated. Continue Lantus, sliding scale and other medications as above.
[2020-07-28] MEDS: Insulin Glargine 20 UNITS in Pre-Filled Syringe SC SCH (09:08)
[2020-07-28] MEDS: Dexamethasone 4 MG TAB PO SCH (09:10)
[2020-07-28] MEDS: Enoxaparin Sodium 80 MG/0.8 ML SYRINGE SC SCH ×2 (09:10→20:33)
[2020-07-28] MEDS: Loratadine 10 MG TAB PO SCH (09:12)
[2020-07-28] MEDS: guaiFENesin ER 600 MG TAB PO SCH ×2 (09:12→20:33)
[2020-07-28] MEDS: Finasteride 5 MG TAB PO SCH (09:12)
[2020-07-28] MEDS: Multivit, Therapeutic 1 TAB PO SCH (09:13)
[2020-07-28] MEDS: Zinc Sulfate 220 MG CAP PO SCH (09:13)
[2020-07-28] MEDS: Tamsulosin HCl 0.4 MG CAP PO SCH (09:13)
[2020-07-28] MEDS: Aspirin 81 mg Enteric Coated Tablet PO SCH (09:13)
[2020-07-28] MEDS: Ascorbic Acid 500 mg Chewable Tablet PO SCH (09:13)
[2020-07-28] MEDS: Cyanocobalamin (Vitamin B-12) 1,000 MCG TAB PO SCH (09:13)
[2020-07-28] MEDS: Polyethylene Glycol 3350 17 GM Packet PO SCH (09:14)
[2020-07-28] MEDS: Saccharomyces boulardii 250 MG CAP PO SCH (09:14)
[2020-07-28] MEDS: HYDROcodone/Acetaminophen 5/325 mg Tablet PO PRN ×2 (09:22→22:09)
--- NOTE | 2020-07-28 13:57 | PRG ---
DATE OF SERVICE: 07/28/2020 SUBJECTIVE: The patient is feeling better, still coughing somewhat. Able to eat. No vomiting. No chest pain or abdominal pain. Voiding without difficulty. No diarrhea. No neurological symptoms. OBJECTIVE: VITAL SIGNS: T-max 98.4, BP 120/68, heart rate 84, respiratory rate 20, and saturating 96 on room air, appears better than when I last saw him. LUNGS: Clear. HEART: S1 and S2. Regular rate. ABDOMEN: Soft, not distended. No bladder distention. EXTREMITIES: Moves all extremities equally. LABORATORY DATA: D-dimer is down to 1.45. Ferritin is down to 301. C-reactive protein is down to 3.9. ASSESSMENT AND DISCUSSION: 1. Type 2 diabetes. 2. Cognitive dysfunction, chronic and congenital. 3. COVID pneumonia. The patient is improving and should be able to go home tomorrow on Decadron to finish off his treatment. Job ID: [id number]
[2020-07-28] MEDS: Amiodarone 450 MG in Dextrose 5% in Water 250 ML IVPB SCH (15:11)
--- NOTE | 2020-07-28 16:07 | PDOC.HOSPP ---
- Subjective Encounter Date: 07/28/20 Encounter Time: 14:00 Subjective: Patient seen and examined for COVID-19 pneumonia. Shortness of breath improving. Mild dry cough. Denies any chest pain or palpitations. - Objective Vital Signs & Weight: Vital Signs (12 hours) Temp Pulse Resp BP Pulse Ox 07/28/20 15:06 98.0 F 83 18 133/80 95 07/28/20 11:36 97.9 F 84 20 121/68 96 07/28/20 08:00 97.8 F 100 20 130/77 95 Weight Weight 155 lb I&O: 07/27/20 07/28/20 07/29/20 06:59 06:59 06:59 Intake Total 2455 1590 Output Total 3150 900 Balance -695 690 Result Diagrams: 07/28/20 04:42 07/28/20 04:41 Additional Labs: Accuchecks 07/28/20 07/27/20 12:11 18:14 POC Glucose 261 H 245 H Abnormal Lab Results - Last 48 hrs 07/27/20 04:51: Sodium 133 L, Potassium 3.0 L, Carbon Dioxide 22 L, Creatinine 0.57 L, Phosphorus 2.2 L, C-Reactive Protein 5.38 H, Albumin 3.2 L, Albumin/Globulin Ratio 1.0 L 07/27/20 04:51: Ferritin 378.13 H 07/27/20 04:51: RBC 4.42 L, Hgb 13.2 L, Hct 38.6 L, Neutrophils % 81.0 H, Lymphocytes % 13.6 L, Neutrophils # 7.9 H 07/27/20 04:51: D-Dimer 3.82 H 07/28/20 04:41: Carbon Dioxide 22 L, Creatinine 0.65 L, Calcium 7.6 L, C- Reactive Protein 3.90 H, Albumin 3.1 L, Albumin/Globulin Ratio 1.0 L 07/28/20 04:41: D-Dimer 1.45 H 07/28/20 04:42: RBC 4.20 L, Hgb 12.5 L, Hct 36.9 L, Neutrophils % 87.8 H, Lymphocytes % 6.8 L, Lymphocytes # 0.5 L Microbiology - Entire Visit 07/25/20 08:33 Venous blood - Right Hand Blood Culture - Preliminary NO GROWTH AT 48 HOURS 07/25/20 08:44 Venous blood - Left Arm Blood Culture - Preliminary NO GROWTH AT 48 HOURS EKG Reviewed by me: Yes (Atrial fibrillation on telemetry) Hospitalist ROS - Review of Systems Cardiovascular: denies: chest pain, palpitations, orthopnea, paroxysmal noc. dyspnea, edema, light headedness, other Gastrointestinal: denies: nausea, vomiting, abdominal pain, diarrhea, constipation, melena, hematochezia, other - Medication Medications: Active Medications Generic Name Dose Route Start Last Admin Trade Name Freq PRN Reason Stop Dose Admin Hydrocodone Bitart/Acetaminophen 1 tab 07/25/20 12:06 07/28/20 09:22 Hydrocodone/Acetaminophen 5/325 Mg Tablet PO 1 tab Q4H PRN Administration Moderate Pain (4-6) Ascorbic Acid 1,000 mg 07/26/20 09:00 07/28/20 09:13 Ascorbic Acid 500 Mg Chewable Tablet PO 1,000 mg DAILY [facility] Administration Aspirin 81 mg 07/27/20 09:00 07/28/20 09:13 Aspirin 81 Mg Enteric Coated Tablet PO 81 mg DAILY [facility] Administration Atorvastatin Calcium 20 mg 07/26/20 21:00 07/27/20 20:40 Atorvastatin Calcium 20 Mg Tab PO 20 mg HS [facility] Administration Cyanocobalamin 500 mcg 07/27/20 09:00 07/28/20 09:13 Cyanocobalamin (Vitamin B-12) 1,000 Mcg Tab PO 500 mcg DAILY [facility] Administration Dexamethasone 6 mg 07/26/20 08:00 07/28/20 09:10 Dexamethasone 4 Mg Tab PO 6 mg QAM-WM [facility] Administration Enoxaparin Sodium 70 mg 07/26/20 21:00 07/28/20 09:10 Enoxaparin Sodium 80 Mg/0.8 Ml Syringe SC 70 mg 899,2099 [facility] Administration Finasteride 5 mg 07/27/20 09:00 07/28/20 09:12 Finasteride 5 Mg Tab PO 5 mg DAILY [facility] Administration Guaifenesin 600 mg 07/26/20 21:00 07/28/20 09:12 Guaifenesin Er 600 Mg Tab PO 600 mg Q12HR [facility] Administration Remdesivir 100 mg/ Sodium 250 mls @ 250 mls/hr 07/26/20 21:00 07/27/20 21:46 Chloride IV 07/29/20 21:59 250 mls 2100 [facility] Administration Amiodarone HCl 450 mg/ 259 mls @ 0 mls/hr 07/26/20 19:15 07/28/20 15:11 Dextrose/Water IVPB 259 mls INF [facility] Administration Protocol Per Protocol Insulin Human Lispro 0 units 07/25/20 12:06 07/28/20 12:09 Humalog 300 Units/3 Ml Vial SC 6 unit .MODERATE SLIDING SC PRN Administration Moderate Correctional Scale Insulin Human Lispro 0 units 07/25/20 12:06 07/27/20 21:48 Humalog 300 Units/3 Ml Vial SC 3 unit .BEDTIME SLIDING SC PRN Administration Bedtime Correctional Scale Isosorbide Mononitrate 30 mg 07/27/20 09:00 07/28/20 09:12 Isosorbide Mononitrate Er 30 Mg Tab PO 30 mg DAILY [facility] Administration Loratadine 10 mg 07/27/20 09:00 07/28/20 09:12 Loratadine 10 Mg Tab PO 10 mg DAILY [facility] Administration Metoprolol Succinate 75 mg 07/27/20 09:00 07/28/20 09:12 Metoprolol Succinate Xl 25 Mg Tab PO 75 mg DAILY [facility] Administration Multivitamins 1 tab 07/27/20 09:00 07/28/20 09:13 Multivit, Therapeutic 1 Tab PO 1 tab DAILY [facility] Administration Pantoprazole Sodium 40 mg 07/26/20 09:00 07/28/20 09:14 Pantoprazole 40 Mg Tab PO 40 mg DAILY [facility] Administration Polyethylene Glycol 17 gm 07/27/20 09:00 07/28/20 09:14 Polyethylene Glycol 3350 17 Gm Packet PO 17 gm DAILY [facility] Administration Saccharomyces Boulardii 250 mg 07/26/20 09:00 07/28/20 09:14 Saccharomyces Boulardii 250 Mg Cap PO 250 mg DAILY [facility] Administration Sodium Chloride 10 ml 07/27/20 09:00 07/28/20 09:14 Flush - Normal Saline 10 Ml Syringe IVF 10 ml Q12HR [facility] Administration Tamsulosin HCl 0.4 mg 07/27/20 09:00 07/28/20 09:13 Tamsulosin Hcl 0.4 Mg Cap PO 0.4 mg DAILY [facility] Administration Zinc Sulfate 220 mg 07/26/20 09:00 07/28/20 09:13 Zinc Sulfate 220 Mg Cap PO 220 mg DAILY [facility] Administration - Exam General Appearance: ill appearing Heart: no gallops, no rubs, normal peripheral pulses, irregular Respiratory: no wheezes, rales, rhonchi, tachypneic Gastrointestinal: soft, non-tender, non-distended, normal bowel sounds Extremities: no cyanosis, no clubbing, no edema Skin: normal turgor Neurological: no new deficit Hosp A/P - Plan DVT proph w/lovenox Acute hypoxic respiratory failure due to COVID-19 pneumonia. On remdesivir. S/p convalescent plasma New onset atrial fibrillation with rapid ventricular responsestarted on amiodarone drip on 07/27 Diabetes mellitus type 2 Hypertension Obesity with a BMI of 30.3 Cognitive dysfunction Other issues per H&P Plan: Patient currently on room air. Continue remdesivir with dexamethasone. Continue other supportive measures including isolation. Increase Lantus to 25 units twice daily due to elevated blood sugars. Continue amiodarone drip with anticoagulation for new onset atrial fibrillation. Monitor inflammatory markers. Continue other medications as above.
--- NOTE | 2020-07-28 16:40 | PDOC.CPN ---
- Subjective Date: 07/28/20 Time: 16:38 Interval history: HR remains rate controlled now. - Objective Allergies/Adverse Reactions: Allergies Allergy/AdvReac Type Severity Reaction Status Date / Time No Known Allergies Allergy Verified 07/25/20 13:01 Visit Medications: Current Medications Acetaminophen (Acetaminophen 500 Mg Tab) 500 mg PO Q4H PRN PRN Reason: Fever/Mild Pain Hydrocodone Bitart/Acetaminophen (Hydrocodone/Acetaminophen 5/325 Mg Tablet) 1 tab PO Q4H PRN PRN Reason: Moderate Pain (4-6) Last Admin: 07/28/20 09:22 Dose: 1 tab Documented by: Albuterol Sulfate (Albuterol 200 Puff (6.7gm Inhaler)) 2 puff INH Q6H PRN PRN Reason: SOB &/or Wheezing Ascorbic Acid (Ascorbic Acid 500 Mg Chewable Tablet) 1,000 mg PO DAILY [facility] Last Admin: 07/28/20 09:13 Dose: 1,000 mg Documented by: Aspirin (Aspirin 81 Mg Enteric Coated Tablet) 81 mg PO DAILY [facility] Last Admin: 07/28/20 09:13 Dose: 81 mg Documented by: Atorvastatin Calcium (Atorvastatin Calcium 20 Mg Tab) 20 mg PO HS [facility] Last Admin: 07/27/20 20:40 Dose: 20 mg Documented by: Benzonatate (Benzonatate 100 Mg Cap) 100 mg PO Q6H PRN PRN Reason: Cough Calcium Carbonate (Calcium Carbonate 500 Mg Chewtab) 1,000 mg PO Q4H PRN PRN Reason: Heartburn or Indigestion Cyanocobalamin (Cyanocobalamin (Vitamin B-12) 1,000 Mcg Tab) 500 mcg PO DAILY [facility] Last Admin: 07/28/20 09:13 Dose: 500 mcg Documented by: Dexamethasone (Dexamethasone 4 Mg Tab) 6 mg PO QAM-WM [facility] Last Admin: 07/28/20 09:10 Dose: 6 mg Documented by: Dextrose/Water (Dextrose 50% Abboject 50 Ml Syringe) 25 gm SLOW IVP PRN PRN PRN Reason: Hypoglycemia Enoxaparin Sodium (Enoxaparin Sodium 80 Mg/0.8 Ml Syringe) 70 mg SC 0900,2100 [facility] Last Admin: 07/28/20 09:10 Dose: 70 mg Documented by: Finasteride (Finasteride 5 Mg Tab) 5 mg PO DAILY [facility] Last Admin: 07/28/20 09:12 Dose: 5 mg Documented by: Glucagon (Glucagon 1 Mg/Ml Vial) 1 mg IM PRN PRN PRN Reason: Hypoglycemia Guaifenesin (Diabetic Tussin 200 Mg/10 Ml Udcup) 200 mg PO Q4H PRN PRN Reason: Cough Guaifenesin (Guaifenesin Er 600 Mg Tab) 600 mg PO Q12HR [facility] Last Admin: 07/28/20 09:12 Dose: 600 mg Documented by: Guaifenesin/Dextromethorphan (Guaifenesin Dm 100-10/5 Ml Udcup) 15 ml PO Q4H PRN PRN Reason: Cough Dextrose/Water (D5w) 1,000 mls @ 0 mls/hr IV .Q0M PRN PRN Reason: Hypoglycemia Remdesivir 100 mg/ Sodium (Chloride) 250 mls @ 250 mls/hr IV 2100 [facility] Stop: 07/29/20 21:59 Last Admin: 07/27/20 21:46 Dose: 250 mls Documented by: Amiodarone HCl 450 mg/ (Dextrose/Water) 259 mls @ 0 mls/hr IVPB INF [facility]; Protocol Last Admin: 07/28/20 15:11 Dose: 259 mls Documented by: Insulin Glargine 25 units/ (Miscellaneous Medication) 0.25 mls @ 0 mls/hr SC QAM [facility] Insulin Glargine 25 units/ (Miscellaneous Medication) 0.25 mls @ 0 mls/hr SC HS [facility] Insulin Human Lispro (Humalog 300 Units/3 Ml Vial) 0 units SC .MODERATE SLIDING SC PRN PRN Reason: Moderate Correctional Scale Last Admin: 07/28/20 12:09 Dose: 6 unit Documented by: Insulin Human Lispro (Humalog 300 Units/3 Ml Vial) 0 units SC .BEDTIME SLIDING SC PRN PRN Reason: Bedtime Correctional Scale Last Admin: 07/27/20 21:48 Dose: 3 unit Documented by: Isosorbide Mononitrate (Isosorbide Mononitrate Er 30 Mg Tab) 30 mg PO DAILY [facility] Last Admin: 07/28/20 09:12 Dose: 30 mg Documented by: Labetalol HCl (Labetalol Hcl 100 Mg/20 Ml Vial) 20 mg SLOW IVP Q4H PRN PRN Reason: SBP > 180 and HR >/= 70 Loperamide HCl (Loperamide Hcl 2 Mg Cap) 2 mg PO PRN PRN PRN Reason: Diarrhea/Loose Stools Loratadine (Loratadine 10 Mg Tab) 10 mg PO DAILYPRN PRN PRN Reason: Sinus Symptoms Loratadine (Loratadine 10 Mg Tab) 10 mg PO DAILY [facility] Last Admin: 07/28/20 09:12 Dose: 10 mg Documented by: Metoprolol Succinate (Metoprolol Succinate Xl 25 Mg Tab) 75 mg PO DAILY [facility] Last Admin: 07/28/20 09:12 Dose: 75 mg Documented by: Multivitamins (Multivit, Therapeutic 1 Tab) 1 tab PO DAILY [facility] Last Admin: 07/28/20 09:13 Dose: 1 tab Documented by: Ondansetron HCl (Ondansetron Pf 4 Mg/2 Ml Vial) 4 mg IVP Q6H PRN PRN Reason: Nausea/Vomiting Ondansetron HCl (Ondansetron Odt 4 Mg Tab) 4 mg PO Q6H PRN PRN Reason: Nausea/Vomiting Pantoprazole Sodium (Pantoprazole 40 Mg Tab) 40 mg PO DAILY [facility] Last Admin: 07/28/20 09:14 Dose: 40 mg Documented by: Polyethylene Glycol (Polyethylene Glycol 3350 17 Gm Packet) 17 gm PO DAILY [facility] Last Admin: 07/28/20 09:14 Dose: 17 gm Documented by: Saccharomyces Boulardii (Saccharomyces Boulardii 250 Mg Cap) 250 mg PO DAILY [facility] Last Admin: 07/28/20 09:14 Dose: 250 mg Documented by: Senna/Docusate Sodium (Senokot S 8.6-50 Mg Tab) 2 tab PO BID PRN PRN Reason: Constipation Sodium Chloride (Sodium Chloride 0.65% Nasal 44 Ml Bot) 0 ml EA NARE QIDPRN PRN PRN Reason: Nasal Congestion Sodium Chloride (Flush - Normal Saline 10 Ml Syringe) 10 ml IVF Q12HR [facility] Last Admin: 07/28/20 09:14 Dose: 10 ml Documented by: Sodium Chloride (Flush - Normal Saline 10 Ml Syringe) 10 ml IVF PRN PRN PRN Reason: Saline Flush Tamsulosin HCl (Tamsulosin Hcl 0.4 Mg Cap) 0.4 mg PO DAILY [facility] Last Admin: 10/25/20 09:13 Dose: 0.4 mg Documented by: Throat Lozenges (Cepastat Lozenges 1 Marc) 1 marc PO Q2H PRN PRN Reason: Sore Throat Zinc Sulfate (Zinc Sulfate 220 Mg Cap) 220 mg PO DAILY [facility] Last Admin: 07/28/20 09:13 Dose: 220 mg Documented by: Zolpidem Tartrate (Zolpidem Tartrate 5 Mg Tab) 5 mg PO HSPRN PRN PRN Reason: Insomnia Vital Signs & Weight: Vital Signs Temp Pulse Resp BP Pulse Ox 07/28/20 15:06 98.0 F 83 18 133/80 95 07/28/20 11:36 97.9 F 84 20 121/68 96 07/28/20 08:00 97.8 F 100 20 130/77 95 Weight 155 lb - Physical Exam General: other (Not done due to active covid 19 infection.) - Labs Result Diagrams: 07/28/20 04:42 07/28/20 04:41 Troponin/CKMB CK-MB (CK-2) 12.5 ng/mL (0-6.6) H* 07/26/20 13:32 Troponin I 0.046 ng/mL (< 0.028) H 07/26/20 13:32 - Telemetry Supraventricular conduction: atrial fibrillation - Assessment/Plan Assessment/Plan: 1. COVID 19 pneumonia 2. Afib RVR PLAN: - Continue amiodarone drip. - Remains rate controlled. - Continue full anticoagulation with full dose lovenox for stroke prophylaxis.
[2020-07-28] MEDS: Atorvastatin Calcium 20 MG TAB PO SCH (20:32)
[2020-07-28] MEDS: Insulin Glargine 25 UNITS in Pre-Filled Syringe 1 EACH SC SCH (20:32)
[2020-07-28] MEDS: REMDESIVIR (EUA) 100 MG in Sodium Chloride 0.9% 250 ML 230 ML IV SCH (21:57)
[2020-07-29] MEDS: Amiodarone 450 MG in Dextrose 5% in Water 250 ML IVPB SCH ×2 (04:46→22:16)
[2020-07-29 04:57] LABS: #Lymphocytes 0.9 thou/uL (1.20-3.40); #Monocytes 0.7 thou/uL (0.11-0.59); #Neutrophils 13.1 thou/uL (1.40-6.50); %Basophils 0.1 % (0.0-1.0); %Lymphocytes 6.2 % (21.0-51.0); %Monocytes 4.8 % (0.0-10.0); %Neutrophils 88.9 % (42.0-75.0); Hemoglobin 12.7 g/dL (14.0-18.0); Mean Corpuscular HGB CONC 34.8 g/dL (32.0-36.0); Mean Corpuscular Hemoglobin 30.1 pg (27.0-31.0); Mean Corpuscular Volume 86.6 fL (78.0-98.0); Mean Platelet Volume 8.4 fL (7.4-10.4); Platelet Count 305 thou/uL (130-400); Red Blood Cell (RBC) Count 4.21 mill/uL (4.70-6.10); White Blood Cell (WBC) Count 14.7 thou/uL (4.8-10.8)
[2020-07-29 05:26] LABS: ALT (SGPT) 31 U/L (8-55); AST (SGOT) 20 U/L (5-34); Albumin 3.1 g/dL (3.4-4.8); Alkaline Phosphatase 66 U/L (40-110); Anion Gap 13 mmol/L (10-20); BUN (Urea Nitrogen) 17 mg/dL (8.4-25.7); Bilirubin, Total 0.4 mg/dL (0.2-1.2); CRP (Inflammatory) 1.54 mg/dL (= or < 0.5); Calc. Creatinine Clearance 122 mL/min (70-130); Calcium 7.9 mg/dL (7.8-10.44); Carbon Dioxide 23 mmol/L (23-31); Chloride 104 mmol/L (98-107); Estimated GFR-MDRD Greater than 90; Globulin 3.1 g/dL (2.4-3.5); Glucose 226 mg/dL (80-115); Magnesium 1.8 mg/dL (1.6-2.6); Phosphorus 3.4 mg/dL (2.3-4.7); Potassium 3.5 mmol/L (3.5-5.1); Protein, Total 6.2 g/dL (5.8-8.1); Sodium 136 mmol/L (136-145)
[2020-07-29] MEDS: Insulin Glargine 25 UNITS in Pre-Filled Syringe 1 EACH SC SCH ×2 (08:47→21:54)
[2020-07-29] MEDS: Enoxaparin Sodium 80 MG/0.8 ML SYRINGE SC SCH ×2 (08:48→21:50)
[2020-07-29] MEDS: Saccharomyces boulardii 250 MG CAP PO SCH (08:48)
[2020-07-29] MEDS: Polyethylene Glycol 3350 17 GM Packet PO SCH (08:48)
[2020-07-29] MEDS: Finasteride 5 MG TAB PO SCH (08:49)
[2020-07-29] MEDS: Loratadine 10 MG TAB PO SCH (08:49)
[2020-07-29] MEDS: Tamsulosin HCl 0.4 MG CAP PO SCH (08:49)
[2020-07-29] MEDS: guaiFENesin ER 600 MG TAB PO SCH ×2 (08:49→21:51)
[2020-07-29] MEDS: Multivit, Therapeutic 1 TAB PO SCH (08:49)
[2020-07-29] MEDS: Cyanocobalamin (Vitamin B-12) 1,000 MCG TAB PO SCH (08:49)
[2020-07-29] MEDS: Zinc Sulfate 220 MG CAP PO SCH (08:49)
[2020-07-29] MEDS: Ascorbic Acid 500 mg Chewable Tablet PO SCH (08:49)
[2020-07-29] MEDS: Dexamethasone 4 MG TAB PO SCH (08:49)
[2020-07-29] MEDS: Aspirin 81 mg Enteric Coated Tablet PO SCH (08:49)
[2020-07-29] MEDS: HumaLOG 300 UNITS/3 ML VIAL SC PRN ×2 (11:26→16:27)
--- NOTE | 2020-07-29 14:38 | PDOC.CPN ---
- Subjective Date: 07/29/20 Time: 14:35 Interval history: His Afib is rate controlled and has organized to aflutter now. - Review of Systems ROS unobtainable: due to mental status - Objective Allergies/Adverse Reactions: Allergies Allergy/AdvReac Type Severity Reaction Status Date / Time No Known Allergies Allergy Verified 07/25/20 13:01 Visit Medications: Current Medications Acetaminophen (Acetaminophen 500 Mg Tab) 500 mg PO Q4H PRN PRN Reason: Fever/Mild Pain Hydrocodone Bitart/Acetaminophen (Hydrocodone/Acetaminophen 5/325 Mg Tablet) 1 tab PO Q4H PRN PRN Reason: Moderate Pain (4-6) Last Admin: 07/28/20 22:09 Dose: 1 tab Documented by: Albuterol Sulfate (Albuterol 200 Puff (6.7gm Inhaler)) 2 puff INH Q6H PRN PRN Reason: SOB &/or Wheezing Ascorbic Acid (Ascorbic Acid 500 Mg Chewable Tablet) 1,000 mg PO DAILY [facility] Last Admin: 07/29/20 08:49 Dose: 1,000 mg Documented by: Aspirin (Aspirin 81 Mg Enteric Coated Tablet) 81 mg PO DAILY [facility] Last Admin: 07/29/20 08:49 Dose: 81 mg Documented by: Atorvastatin Calcium (Atorvastatin Calcium 20 Mg Tab) 20 mg PO HS [facility] Last Admin: 07/28/20 20:32 Dose: 20 mg Documented by: Benzonatate (Benzonatate 100 Mg Cap) 100 mg PO Q6H PRN PRN Reason: Cough Calcium Carbonate (Calcium Carbonate 500 Mg Chewtab) 1,000 mg PO Q4H PRN PRN Reason: Heartburn or Indigestion Cyanocobalamin (Cyanocobalamin (Vitamin B-12) 1,000 Mcg Tab) 500 mcg PO DAILY [facility] Last Admin: 07/29/20 08:49 Dose: 500 mcg Documented by: Dexamethasone (Dexamethasone 4 Mg Tab) 6 mg PO QAM-WM [facility] Last Admin: 07/29/20 08:49 Dose: 6 mg Documented by: Dextrose/Water (Dextrose 50% Abboject 50 Ml Syringe) 25 gm SLOW IVP PRN PRN PRN Reason: Hypoglycemia Enoxaparin Sodium (Enoxaparin Sodium 80 Mg/0.8 Ml Syringe) 70 mg SC 0900,2100 [facility] Last Admin: 07/29/20 08:48 Dose: 70 mg Documented by: Finasteride (Finasteride 5 Mg Tab) 5 mg PO DAILY [facility] Last Admin: 07/29/20 08:49 Dose: 5 mg Documented by: Glucagon (Glucagon 1 Mg/Ml Vial) 1 mg IM PRN PRN PRN Reason: Hypoglycemia Guaifenesin (Diabetic Tussin 200 Mg/10 Ml Udcup) 200 mg PO Q4H PRN PRN Reason: Cough Guaifenesin (Guaifenesin Er 600 Mg Tab) 600 mg PO Q12HR [facility] Last Admin: 07/29/20 08:49 Dose: 600 mg Documented by: Guaifenesin/Dextromethorphan (Guaifenesin Dm 100-10/5 Ml Udcup) 15 ml PO Q4H PRN PRN Reason: Cough Dextrose/Water (D5w) 1,000 mls @ 0 mls/hr IV .Q0M PRN PRN Reason: Hypoglycemia Remdesivir 100 mg/ Sodium (Chloride) 250 mls @ 250 mls/hr IV 2100 [facility] Stop: 07/29/20 21:59 Last Admin: 07/28/20 21:57 Dose: 250 mls Documented by: Amiodarone HCl 450 mg/ (Dextrose/Water) 259 mls @ 0 mls/hr IVPB INF [facility]; Protocol Last Admin: 07/29/20 04:46 Dose: 259 mls Documented by: Insulin Glargine 25 units/ (Miscellaneous Medication) 0.25 mls @ 0 mls/hr [facility] [place] Last Admin: 07/29/20 08:47 Dose: 0.25 mls Documented by: Insulin Glargine 25 units/ (Miscellaneous Medication) 0.25 mls @ 0 mls/hr SC HS [facility] Last Admin: 07/28/20 20:32 Dose: 0.25 mls Documented by: Insulin Human Lispro (Humalog 300 Units/3 Ml Vial) 0 units SC .MODERATE SLIDING SC PRN PRN Reason: Moderate Correctional Scale Last Admin: 07/29/20 11:26 Dose: 2 unit Documented by: Insulin Human Lispro (Humalog 300 Units/3 Ml Vial) 0 units SC .BEDTIME SLIDING SC PRN PRN Reason: Bedtime Correctional Scale Last Admin: 07/28/20 21:05 Dose: 2 unit Documented by: Isosorbide Mononitrate (Isosorbide Mononitrate Er 30 Mg Tab) 30 mg PO DAILY [facility] Last Admin: 07/29/20 08:49 Dose: 30 mg Documented by: Labetalol HCl (Labetalol Hcl 100 Mg/20 Ml Vial) 20 mg SLOW IVP Q4H PRN PRN Reason: SBP > 180 and HR >/= 70 Loperamide HCl (Loperamide Hcl 2 Mg Cap) 2 mg PO PRN PRN PRN Reason: Diarrhea/Loose Stools Loratadine (Loratadine 10 Mg Tab) 10 mg PO DAILYPRN PRN PRN Reason: Sinus Symptoms Loratadine (Loratadine 10 Mg Tab) 10 mg PO DAILY [facility] Last Admin: 07/29/20 08:49 Dose: 10 mg Documented by: Metoprolol Succinate (Metoprolol Succinate Xl 25 Mg Tab) 75 mg PO DAILY [facility] Last Admin: 07/29/20 08:48 Dose: 75 mg Documented by: Multivitamins (Multivit, Therapeutic 1 Tab) 1 tab PO DAILY [facility] Last Admin: 07/29/20 08:49 Dose: 1 tab Documented by: Ondansetron HCl (Ondansetron Pf 4 Mg/2 Ml Vial) 4 mg IVP Q6H PRN PRN Reason: Nausea/Vomiting Ondansetron HCl (Ondansetron Odt 4 Mg Tab) 4 mg PO Q6H PRN PRN Reason: Nausea/Vomiting Pantoprazole Sodium (Pantoprazole 40 Mg Tab) 40 mg PO DAILY [facility] Last Admin: 07/29/20 08:49 Dose: 40 mg Documented by: Polyethylene Glycol (Polyethylene Glycol 3350 17 Gm Packet) 17 gm PO DAILY [facility] Last Admin: 07/29/20 08:48 Dose: 17 gm Documented by: Saccharomyces Boulardii (Saccharomyces Boulardii 250 Mg Cap) 250 mg PO DAILY [facility] Last Admin: 07/29/20 08:48 Dose: 250 mg Documented by: Senna/Docusate Sodium (Senokot S 8.6-50 Mg Tab) 2 tab PO BID PRN PRN Reason: Constipation Sodium Chloride (Sodium Chloride 0.65% Nasal 44 Ml Bot) 0 ml EA NARE QIDPRN PRN PRN Reason: Nasal Congestion Sodium Chloride (Flush - Normal Saline 10 Ml Syringe) 10 ml IVF Q12HR [facility] Last Admin: 07/29/20 08:50 Dose: 10 ml Documented by: Sodium Chloride (Flush - Normal Saline 10 Ml Syringe) 10 ml IVF PRN PRN PRN Reason: Saline Flush Tamsulosin HCl (Tamsulosin Hcl 0.4 Mg Cap) 0.4 mg PO DAILY [facility] Last Admin: 07/29/20 08:49 Dose: 0.4 mg Documented by: Throat Lozenges (Cepastat Lozenges 1 Marc) 1 marc PO Q2H PRN PRN Reason: Sore Throat Zinc Sulfate (Zinc Sulfate 220 Mg Cap) 220 mg PO DAILY [facility] Last Admin: 07/29/20 08:49 Dose: 220 mg Documented by: Zolpidem Tartrate (Zolpidem Tartrate 5 Mg Tab) 5 mg PO HSPRN PRN PRN Reason: Insomnia Vital Signs & Weight: Vital Signs Temp Pulse Resp BP Pulse Ox 07/29/20 11:30 97.6 F 79 18 145/77 H 94 L 07/29/20 09:15 98.5 F 93 18 166/77 H 93 L 07/29/20 04:00 101 H 18 115/69 94 L Weight 155 lb - Physical Exam General: other (Not done due to active covid 19 infection.) - Labs Result Diagrams: 07/29/20 04:34 07/29/20 04:34 Troponin/CKMB CK-MB (CK-2) 12.5 ng/mL (0-6.6) H* 07/26/20 13:32 Troponin I 0.046 ng/mL (< 0.028) H 07/26/20 13:32 - Telemetry Supraventricular conduction: atrial flutter - Assessment/Plan Assessment/Plan: 1. COVID 19 pneumonia 2. Afib RVR 3. Atypical atrial flutter variabvle AV block. PLAN: - Continue amiodarone drip. - Remains rate controlled. - Continue full anticoagulation with full dose lovenox for stroke prophylaxis and switch to ELiquis 5 mg BID on before discharge. - Will switch to PO amiodarone tomorrow.
--- NOTE | 2020-07-29 18:16 | PDOC.HOSPP ---
- Subjective Encounter Date: 07/29/20 Encounter Time: 18:00 Subjective: Patient seen and examined for respiratory failure due to COVID-19 pneumonia. Shortness of breath improving. Patient on room air. Denies any chest pain. - Objective Vital Signs & Weight: Vital Signs (12 hours) Temp Pulse Resp BP Pulse Ox 07/29/20 11:30 97.6 F 79 18 145/77 H 94 L 07/29/20 09:15 98.5 F 93 18 166/77 H 93 L Weight Weight 155 lb I&O: 07/28/20 07/29/20 07/30/20 06:59 06:59 06:59 Intake Total 1590 2790 Output Total 900 2900 Balance 690 -110 Result Diagrams: 07/29/20 04:34 07/29/20 04:34 Additional Labs: Accuchecks 07/29/20 07/29/20 07/28/20 16:31 11:31 20:45 POC Glucose 227 H 187 H 210 H 07/27/20 07/27/20 07/25/20 22:01 16:43 18:02 POC Glucose 264 H 247 H 238 H Abnormal Lab Results - Last 48 hrs 07/28/20 04:41: Carbon Dioxide 22 L, Creatinine 0.65 L, Calcium 7.6 L, C- Reactive Protein 3.90 H, Albumin 3.1 L, Albumin/Globulin Ratio 1.0 L 07/28/20 04:41: D-Dimer 1.45 H 07/28/20 04:42: RBC 4.20 L, Hgb 12.5 L, Hct 36.9 L, Neutrophils % 87.8 H, Lymphocytes % 6.8 L, Lymphocytes # 0.5 L 07/29/20 04:34: Creatinine 0.60 L, C-Reactive Protein 1.54 H, Albumin 3.1 L, Albumin/Globulin Ratio 1.0 L 07/29/20 04:34: WBC 14.7 H, RBC 4.21 L, Hgb 12.7 L, Hct 36.4 L, Neutrophils % 88.9 H, Lymphocytes % 6.2 L, Neutrophils # 13.1 H, Lymphocytes # 0.9 L, Monocytes # 0.7 H 07/29/20 04:34: D-Dimer 0.66 H Microbiology - Entire Visit 07/25/20 08:33 Venous blood - Right Hand Blood Culture - Preliminary NO GROWTH AT 48 HOURS 07/25/20 08:44 Venous blood - Left Arm Blood Culture - Preliminary NO GROWTH AT 48 HOURS EKG Reviewed by me: Yes (Telemetryatrial flutter/fib) Hospitalist ROS - Review of Systems Respiratory: denies: cough, dry, shortness of breath, hemoptysis, SOB with excertion, pleuritic pain, sputum, wheezing, other Cardiovascular: denies: chest pain, palpitations, orthopnea, paroxysmal noc. dyspnea, edema, light headedness, other - Medication Medications: Active Medications Generic Name Dose Route Start Last Admin Trade Name Freq PRN Reason Stop Dose Admin Hydrocodone Bitart/Acetaminophen 1 tab 07/25/20 12:06 07/28/20 22:09 Hydrocodone/Acetaminophen 5/325 Mg Tablet PO 1 tab Q4H PRN Administration Moderate Pain (4-6) Ascorbic Acid 1,000 mg 07/26/20 09:00 07/29/20 08:49 Ascorbic Acid 500 Mg Chewable Tablet PO 1,000 mg DAILY [facility] Administration Aspirin 81 mg 07/27/20 09:00 07/29/20 08:49 Aspirin 81 Mg Enteric Coated Tablet PO 81 mg DAILY [facility] Administration Atorvastatin Calcium 20 mg 07/26/20 21:00 07/28/20 20:32 Atorvastatin Calcium 20 Mg Tab PO 20 mg HS [facility] Administration Cyanocobalamin 500 mcg 07/27/20 09:00 07/29/20 08:49 Cyanocobalamin (Vitamin B-12) 1,000 Mcg Tab PO 500 mcg DAILY [facility] Administration Dexamethasone 6 mg 07/26/20 08:00 07/29/20 08:49 Dexamethasone 4 Mg Tab PO 6 mg QAM-WM [facility] Administration Enoxaparin Sodium 70 mg 07/26/20 21:00 07/29/20 08:48 Enoxaparin Sodium 80 Mg/0.8 Ml Syringe SC 70 mg 0900,2100 [facility] Administration Finasteride 5 mg 07/27/20 09:00 07/29/20 08:49 Finasteride 5 Mg Tab PO 5 mg DAILY [facility] Administration Guaifenesin 600 mg 07/26/20 21:00 07/29/20 08:49 Guaifenesin Er 600 Mg Tab PO 600 mg Q12HR [facility] Administration Remdesivir 100 mg/ Sodium 250 mls @ 250 mls/hr 07/26/20 21:00 07/28/20 21:57 Chloride IV 07/29/20 21:59 250 mls 2100 [facility] Administration Amiodarone HCl 450 mg/ 259 mls @ 0 mls/hr 07/26/20 19:15 07/29/20 04:46 Dextrose/Water IVPB 07/30/20 09:00 259 mls INF [facility] Administration Protocol Per Protocol Insulin Glargine 25 units/ 0.25 mls @ 0 mls/hr 07/29/20 09:00 07/29/20 08:47 Miscellaneous Medication SC 0.25 mls QAM [facility] Administration Insulin Glargine 25 units/ 0.25 mls @ 0 mls/hr 07/28/20 21:00 07/28/20 20:32 Miscellaneous Medication SC 0.25 mls HS [facility] Administration Insulin Human Lispro 0 units 07/25/20 12:06 07/29/20 16:27 Humalog 300 Units/3 Ml Vial SC 4 unit .MODERATE SLIDING SC PRN Administration Moderate Correctional Scale Insulin Human Lispro 0 units 07/25/20 12:06 07/28/20 21:05 Humalog 300 Units/3 Ml Vial SC 2 unit .BEDTIME SLIDING SC PRN Administration Bedtime Correctional Scale Isosorbide Mononitrate 30 mg 07/27/20 09:00 07/29/20 08:49 Isosorbide Mononitrate Er 30 Mg Tab PO 30 mg DAILY [facility] Administration Loratadine 10 mg 07/27/20 09:00 07/29/20 08:49 Loratadine 10 Mg Tab PO 10 mg DAILY [facility] Administration Metoprolol Succinate 75 mg 07/27/20 09:00 07/29/20 08:48 Metoprolol Succinate Xl 25 Mg Tab PO 75 mg DAILY [facility] Administration Multivitamins 1 tab 07/27/20 09:00 07/29/20 08:49 Multivit, Therapeutic 1 Tab PO 1 tab DAILY [facility] Administration Pantoprazole Sodium 40 mg 07/26/20 09:00 07/29/20 08:49 Pantoprazole 40 Mg Tab PO 40 mg DAILY [facility] Administration Polyethylene Glycol 17 gm 07/27/20 09:00 07/29/20 08:48 Polyethylene Glycol 3350 17 Gm Packet PO 17 gm DAILY [facility] Administration Saccharomyces Boulardii 250 mg 07/26/20 09:00 07/29/20 08:48 Saccharomyces Boulardii 250 Mg Cap PO 250 mg DAILY [facility] Administration Sodium Chloride 10 ml 07/27/20 09:00 07/29/20 08:50 Flush - Normal Saline 10 Ml Syringe IVF 10 ml Q12HR [facility] Administration Tamsulosin HCl 0.4 mg 07/27/20 09:00 07/29/20 08:49 Tamsulosin Hcl 0.4 Mg Cap PO 0.4 mg DAILY [facility] Administration Zinc Sulfate 220 mg 07/26/20 09:00 07/29/20 08:49 Zinc Sulfate 220 Mg Cap PO 220 mg DAILY [facility] Administration - Exam General Appearance: NAD Heart: RRR, no gallops Respiratory: no wheezes, rales, rhonchi Gastrointestinal: soft, non-tender, normal bowel sounds Extremities: no cyanosis Hosp A/P - Plan DVT proph w/SCDs Acute hypoxic respiratory failure due to COVID-19 pneumonia. On remdesivir. S/p convalescent plasma New onset atrial fibrillation with rapid ventricular responsestarted on amiodarone drip on 07/27 Diabetes mellitus type 2 Hypertension Obesity with a BMI of 30.3 Cognitive dysfunction Hypomagnesemia Other issues per H&P Plan: Overall patient is improving. Continue remdesivir. Inflammatory markers downtrending. Will replace magnesium. Continue current dose of Lantus. Continue dexamethasone. Transition amiodarone to p.o. Will change Lovenox to Eliquis at discharge. We will continue other medications as above. Recheck colt santos in a.m. Patient understands the risk associated with anticoagulation
[2020-07-29] MEDS ORDERED: Magnesium 2 GM/50 ML 2 GM in Premix Bag 1 BAG IVPB SCH (19:00)
[2020-07-29] MEDS: Atorvastatin Calcium 20 MG TAB PO SCH (21:51)
[2020-07-29] MEDS: Amiodarone 200 MG TAB PO SCH (21:51)
[2020-07-29] MEDS: REMDESIVIR (EUA) 100 MG in Sodium Chloride 0.9% 250 ML 230 ML IV SCH (21:54)
[2020-07-30 05:10] LABS: #Lymphocytes 0.9 thou/uL (1.20-3.40); #Neutrophils 17.4 thou/uL (1.40-6.50); %Basophils 0.1 % (0.0-1.0); %Eosinophils 0.1 % (0.0-10.0); %Lymphocytes 4.8 % (21.0-51.0); %Monocytes 5.1 % (0.0-10.0); %Neutrophils 89.9 % (42.0-75.0); Mean Corpuscular HGB CONC 33.8 g/dL (32.0-36.0); Mean Corpuscular Hemoglobin 29.4 pg (27.0-31.0); Mean Corpuscular Volume 86.9 fL (78.0-98.0); Mean Platelet Volume 7.9 fL (7.4-10.4); Platelet Count 392 thou/uL (130-400); RBC Distribution Width 12.2 % (11.5-14.5); Red Blood Cell (RBC) Count 4.41 mill/uL (4.70-6.10); White Blood Cell (WBC) Count 19.4 thou/uL (4.8-10.8)
[2020-07-30] MEDS: HYDROcodone/Acetaminophen 5/325 mg Tablet PO PRN ×2 (05:48→09:50)
[2020-07-30 05:52] LABS: ALT (SGPT) 56 U/L (8-55); AST (SGOT) 34 U/L (5-34); Albumin 3.3 g/dL (3.4-4.8); Alkaline Phosphatase 88 U/L (40-110); Anion Gap 16 mmol/L (10-20); BUN (Urea Nitrogen) 15 mg/dL (8.4-25.7); Bilirubin, Total 0.3 mg/dL (0.2-1.2); Calc. Creatinine Clearance 133 mL/min (70-130); Carbon Dioxide 23 mmol/L (23-31); Chloride 101 mmol/L (98-107); Estimated GFR-MDRD Greater than 90; Globulin 3.2 g/dL (2.4-3.5); Glucose 267 mg/dL (80-115); Potassium 3.6 mmol/L (3.5-5.1); Protein, Total 6.5 g/dL (5.8-8.1); Sodium 136 mmol/L (136-145)
[2020-07-30] MEDS: HumaLOG 300 UNITS/3 ML VIAL SC PRN ×3 (06:04→17:55)
[2020-07-30] MEDS: Enoxaparin Sodium 80 MG/0.8 ML SYRINGE SC SCH (09:47)
[2020-07-30] MEDS: Finasteride 5 MG TAB PO SCH (09:48)
[2020-07-30] MEDS: Dexamethasone 4 MG TAB PO SCH (09:48)
[2020-07-30] MEDS: Amiodarone 200 MG TAB PO SCH ×2 (09:48→23:10)
[2020-07-30] MEDS: Multivit, Therapeutic 1 TAB PO SCH (09:48)
[2020-07-30] MEDS: Loratadine 10 MG TAB PO SCH (09:49)
[2020-07-30] MEDS: Cyanocobalamin (Vitamin B-12) 1,000 MCG TAB PO SCH (09:49)
[2020-07-30] MEDS: Tamsulosin HCl 0.4 MG CAP PO SCH (09:49)
[2020-07-30] MEDS: Saccharomyces boulardii 250 MG CAP PO SCH (09:49)
[2020-07-30] MEDS: guaiFENesin ER 600 MG TAB PO SCH ×2 (09:49→23:10)
[2020-07-30] MEDS: Zinc Sulfate 220 MG CAP PO SCH (09:49)
[2020-07-30] MEDS: Ascorbic Acid 500 mg Chewable Tablet PO SCH (09:49)
[2020-07-30] MEDS: Polyethylene Glycol 3350 17 GM Packet PO SCH (09:50)
[2020-07-30] MEDS: Insulin Glargine 25 UNITS in Pre-Filled Syringe 1 EACH SC SCH ×2 (09:50→23:10)
[2020-07-30] MEDS: Aspirin 81 mg Enteric Coated Tablet PO SCH (09:50)
--- NOTE | 2020-07-30 17:25 | PDOC.CPN ---
- Subjective Date: 07/30/20 Time: 17:24 Interval history: Rate controlled. on room air at this time. - Review of Systems ROS unobtainable: due to mental status - Objective Allergies/Adverse Reactions: Allergies Allergy/AdvReac Type Severity Reaction Status Date / Time No Known Allergies Allergy Verified 07/25/20 13:01 Visit Medications: Current Medications Acetaminophen (Acetaminophen 500 Mg Tab) 500 mg PO Q4H PRN PRN Reason: Fever/Mild Pain Hydrocodone Bitart/Acetaminophen (Hydrocodone/Acetaminophen 5/325 Mg Tablet) 1 tab PO Q4H PRN PRN Reason: Moderate Pain (4-6) Last Admin: 07/30/20 09:50 Dose: 1 tab Documented by: Albuterol Sulfate (Albuterol 200 Puff (6.7gm Inhaler)) 2 puff INH Q6H PRN PRN Reason: SOB &/or Wheezing Amiodarone HCl (Amiodarone 200 Mg Tab) 400 mg PO BID [facility] Last Admin: 07/30/20 09:48 Dose: 400 mg Documented by: Ascorbic Acid (Ascorbic Acid 500 Mg Chewable Tablet) 1,000 mg PO DAILY [facility] Last Admin: 07/30/20 09:49 Dose: 1,000 mg Documented by: Aspirin (Aspirin 81 Mg Enteric Coated Tablet) 81 mg PO DAILY [facility] Last Admin: 07/30/20 09:50 Dose: 81 mg Documented by: Atorvastatin Calcium (Atorvastatin Calcium 20 Mg Tab) 20 mg PO HS [facility] Last Admin: 07/29/20 21:51 Dose: 20 mg Documented by: Benzonatate (Benzonatate 100 Mg Cap) 100 mg PO Q6H PRN PRN Reason: Cough Calcium Carbonate (Calcium Carbonate 500 Mg Chewtab) 1,000 mg PO Q4H PRN PRN Reason: Heartburn or Indigestion Cyanocobalamin (Cyanocobalamin (Vitamin B-12) 1,000 Mcg Tab) 500 mcg PO DAILY [facility] Last Admin: 07/30/20 09:49 Dose: 500 mcg Documented by: Dexamethasone (Dexamethasone 4 Mg Tab) 6 mg PO QAM-WM [facility] Last Admin: 07/30/20 09:48 Dose: 6 mg Documented by: Dextrose/Water (Dextrose 50% Abboject 50 Ml Syringe) 25 gm SLOW IVP PRN PRN PRN Reason: Hypoglycemia Enoxaparin Sodium (Enoxaparin Sodium 80 Mg/0.8 Ml Syringe) 70 mg SC 0900,2100 S Last Admin: 07/30/20 09:47 Dose: 70 mg Documented by: Finasteride (Finasteride 5 Mg Tab) 5 mg PO DAILY [facility] Last Admin: 07/30/20 09:48 Dose: 5 mg Documented by: Glucagon (Glucagon 1 Mg/Ml Vial) 1 mg IM PRN PRN PRN Reason: Hypoglycemia Guaifenesin (Diabetic Tussin 200 Mg/10 Ml Udcup) 200 mg PO Q4H PRN PRN Reason: Cough Guaifenesin (Guaifenesin Er 600 Mg Tab) 600 mg PO Q12HR [facility] Last Admin: 07/30/20 09:49 Dose: 600 mg Documented by: Guaifenesin/Dextromethorphan (Guaifenesin Dm 100-10/5 Ml Udcup) 15 ml PO Q4H PRN PRN Reason: Cough Dextrose/Water (D5w) 1,000 mls @ 0 mls/hr IV .Q0M PRN PRN Reason: Hypoglycemia Insulin Glargine 25 units/ (Miscellaneous Medication) 0.25 mls @ 0 mls/hr [facility] [place] Last Admin: 07/30/20 09:50 Dose: 0.25 mls Documented by: Insulin Glargine 25 units/ (Miscellaneous Medication) 0.25 mls @ 0 mls/hr SC [facility] Last Admin: 07/29/20 21:54 Dose: 0.25 mls Documented by: Insulin Human Lispro (Humalog 300 Units/3 Ml Vial) 0 units SC .MODERATE SLIDING SC PRN PRN Reason: Moderate Correctional Scale Last Admin: 07/30/20 12:13 Dose: 4 unit Documented by: Insulin Human Lispro (Humalog 300 Units/3 Ml Vial) 0 units SC .BEDTIME SLIDING SC PRN PRN Reason: Bedtime Correctional Scale Last Admin: 07/28/20 21:05 Dose: 2 unit Documented by: Isosorbide Mononitrate (Isosorbide Mononitrate Er 30 Mg Tab) 30 mg PO DAILY [facility] Last Admin: 07/30/20 09:48 Dose: 30 mg Documented by: Labetalol HCl (Labetalol Hcl 100 Mg/20 Ml Vial) 20 mg SLOW IVP Q4H PRN PRN Reason: SBP > 180 and HR >/= 70 Loperamide HCl (Loperamide Hcl 2 Mg Cap) 2 mg PO PRN PRN PRN Reason: Diarrhea/Loose Stools Loratadine (Loratadine 10 Mg Tab) 10 mg PO DAILYPRN PRN PRN Reason: Sinus Symptoms Loratadine (Loratadine 10 Mg Tab) 10 mg PO DAILY [facility] Last Admin: 07/30/20 09:49 Dose: 10 mg Documented by: Metoprolol Succinate (Metoprolol Succinate Xl 25 Mg Tab) 75 mg PO DAILY [facility] Last Admin: 07/30/20 09:48 Dose: 75 mg Documented by: Multivitamins (Multivit, Therapeutic 1 Tab) 1 tab PO DAILY [facility] Last Admin: 07/30/20 09:48 Dose: 1 tab Documented by: Ondansetron HCl (Ondansetron Pf 4 Mg/2 Ml Vial) 4 mg IVP Q6H PRN PRN Reason: Nausea/Vomiting Ondansetron HCl (Ondansetron Odt 4 Mg Tab) 4 mg PO Q6H PRN PRN Reason: Nausea/Vomiting Pantoprazole Sodium (Pantoprazole 40 Mg Tab) 40 mg PO DAILY [facility] Last Admin: 07/30/20 09:49 Dose: 40 mg Documented by: Polyethylene Glycol (Polyethylene Glycol 3350 17 Gm Packet) 17 gm PO DAILY [facility] Last Admin: 07/30/20 09:50 Dose: 17 gm Documented by: Saccharomyces Boulardii (Saccharomyces Boulardii 250 Mg Cap) 250 mg PO DAILY [facility] Last Admin: 07/30/20 09:49 Dose: 250 mg Documented by: Senna/Docusate Sodium (Senokot S 8.6-50 Mg Tab) 2 tab PO BID PRN PRN Reason: Constipation Sodium Chloride (Sodium Chloride 0.65% Nasal 44 Ml Bot) 0 ml EA NARE QIDPRN PRN PRN Reason: Nasal Congestion Sodium Chloride (Flush - Normal Saline 10 Ml Syringe) 10 ml IVF Q12HR [facility] Last Admin: 07/30/20 11:46 Dose: Not Given Documented by: Sodium Chloride (Flush - Normal Saline 10 Ml Syringe) 10 ml IVF PRN PRN PRN Reason: Saline Flush Tamsulosin HCl (Tamsulosin Hcl 0.4 Mg Cap) 0.4 mg PO DAILY [facility] Last Admin: 10/27/20 09:49 Dose: 0.4 mg Documented by: Throat Lozenges (Cepastat Lozenges 1 Marc) 1 marc PO Q2H PRN PRN Reason: Sore Throat Zinc Sulfate (Zinc Sulfate 220 Mg Cap) 220 mg PO DAILY [facility] Last Admin: 07/30/20 09:49 Dose: 220 mg Documented by: Zolpidem Tartrate (Zolpidem Tartrate 5 Mg Tab) 5 mg PO HSPRN PRN PRN Reason: Insomnia Vital Signs & Weight: Vital Signs Temp Pulse Resp BP Pulse Ox 07/30/20 16:00 98.0 F 63 19 126/60 100 07/30/20 11:35 97.9 F 85 22 H 138/83 97 07/30/20 08:25 97.6 F 89 16 148/79 H 97 Weight 155 lb - Physical Exam General: other (Not done due to covid 19 active infection.) - Labs Result Diagrams: 07/30/20 04:48 07/30/20 04:48 Troponin/CKMB CK-MB (CK-2) 12.5 ng/mL (0-6.6) H* 07/26/20 13:32 Troponin I 0.046 ng/mL (< 0.028) H 07/26/20 13:32 - Telemetry Supraventricular conduction: atrial fibrillation - Assessment/Plan Assessment/Plan: 1. COVID 19 pneumonia 2. Afib RVR 3. Atypical atrial flutter variabvle AV block. PLAN: - Continue amiodarone will switch drip to PO load at 400 mg PO BID for next 7 days then switch to 200 mg daily. - Continue full anticoagulation, will switch to ELiquis 5 mg BID - Discharge tomorrow if remains rate controlled.
--- NOTE | 2020-07-30 17:57 | PDOC.HOSPP ---
- Subjective Encounter Date: 07/30/20 Encounter Time: 17:00 Subjective: Patient seen and examined for respiratory failure due to COVID-19. Denies any new complaints. No chest pain, palpitations or syncope. Shortness of breath improving. Some dry cough. - Objective Vital Signs & Weight: Vital Signs (12 hours) Temp Pulse Resp BP Pulse Ox 07/30/20 16:00 98.0 F 63 19 126/60 100 07/30/20 11:35 97.9 F 85 22 H 138/83 97 07/30/20 08:25 97.6 F 89 16 148/79 H 97 Weight Weight 155 lb I&O: 07/29/20 07/30/20 07/31/20 06:59 06:59 06:59 Intake Total 2790 1840.4 1276 Output Total 2900 1550 2075 Balance -110 290.4 -799 Result Diagrams: 07/30/20 04:48 07/30/20 04:48 Additional Labs: Accuchecks 07/30/20 07/30/20 07/29/20 16:59 11:34 21:08 POC Glucose 250 H 227 H 253 H Abnormal Lab Results - Last 48 hrs 07/29/20 04:34: Creatinine 0.60 L, C-Reactive Protein 1.54 H, Albumin 3.1 L, Albumin/Globulin Ratio 1.0 L 07/29/20 04:34: WBC 14.7 H, RBC 4.21 L, Hgb 12.7 L, Hct 36.4 L, Neutrophils % 88.9 H, Lymphocytes % 6.2 L, Neutrophils # 13.1 H, Lymphocytes # 0.9 L, Monocytes # 0.7 H 07/29/20 04:34: D-Dimer 0.66 H 07/30/20 04:48: Creatinine 0.55 L, ALT 56 H, Albumin 3.3 L, Albumin/Globulin Ratio 1.0 L 07/30/20 04:48: WBC 19.4 H, RBC 4.41 L, Hgb 13.0 L, Hct 38.3 L, Neutrophils % 89.9 H, Lymphocytes % 4.8 L, Neutrophils # 17.4 H, Lymphocytes # 0.9 L, Monocytes # 1.0 H Microbiology - Entire Visit 07/25/20 08:33 Venous blood - Right Hand Blood Culture - Final NO GROWTH IN 5 DAYS 07/25/20 08:44 Venous blood - Left Arm Blood Culture - Final NO GROWTH IN 5 DAYS EKG Reviewed by me: Yes (Sinus rhythm since 2 PM) Hospitalist ROS - Review of Systems Cardiovascular: denies: chest pain, palpitations, orthopnea, paroxysmal noc. dyspnea, edema, light headedness, other Gastrointestinal: denies: nausea, vomiting, abdominal pain, diarrhea, constipation, melena, hematochezia, other - Medication Medications: Active Medications Generic Name Dose Route Start Last Admin Trade Name Freq PRN Reason Stop Dose Admin Hydrocodone Bitart/Acetaminophen 1 tab 07/25/20 12:06 07/30/20 09:50 Hydrocodone/Acetaminophen 5/325 Mg Tablet PO 1 tab Q4H PRN Administration Moderate Pain (4-6) Amiodarone HCl 400 mg 07/29/20 21:00 07/30/20 09:48 Amiodarone 200 Mg Tab PO 400 mg BID [facility] Administration Ascorbic Acid 1,000 mg 07/26/20 09:00 07/30/20 09:49 Ascorbic Acid 500 Mg Chewable Tablet PO 1,000 mg DAILY [facility] Administration Aspirin 81 mg 07/27/20 09:00 07/30/20 09:50 Aspirin 81 Mg Enteric Coated Tablet PO 81 mg DAILY [facility] Administration Atorvastatin Calcium 20 mg 07/26/20 21:00 07/29/20 21:51 Atorvastatin Calcium 20 Mg Tab PO 20 mg HS [facility] Administration Cyanocobalamin 500 mcg 07/27/20 09:00 07/30/20 09:49 Cyanocobalamin (Vitamin B-12) 1,000 Mcg Tab PO 500 mcg DAILY [facility] Administration Dexamethasone 6 mg 07/26/20 08:00 07/30/20 09:48 Dexamethasone 4 Mg Tab PO 6 mg QAM-WM [facility] Administration Finasteride 5 mg 07/27/20 09:00 07/30/20 09:48 Finasteride 5 Mg Tab PO 5 mg DAILY [facility] Administration Guaifenesin 600 mg 07/26/20 21:00 07/30/20 09:49 Guaifenesin Er 600 Mg Tab PO 600 mg Q12HR [facility] Administration Insulin Glargine 25 units/ 0.25 mls @ 0 mls/hr 07/28/20 21:00 07/29/20 21:54 Miscellaneous Medication SC 0.25 mls HS [facility] Administration Insulin Human Lispro 0 units 07/25/20 12:06 07/30/20 12:13 Humalog 300 Units/3 Ml Vial SC 4 unit .MODERATE SLIDING SC PRN Administration Moderate Correctional Scale Insulin Human Lispro 0 units 07/25/20 12:06 07/28/20 21:05 Humalog 300 Units/3 Ml Vial SC 2 unit .BEDTIME SLIDING SC PRN Administration Bedtime Correctional Scale Isosorbide Mononitrate 30 mg 07/27/20 09:00 07/30/20 09:48 Isosorbide Mononitrate Er 30 Mg Tab PO 30 mg DAILY [facility] Administration Loratadine 10 mg 07/27/20 09:00 07/30/20 09:49 Loratadine 10 Mg Tab PO 10 mg DAILY [facility] Administration Metoprolol Succinate 75 mg 07/27/20 09:00 07/30/20 09:48 Metoprolol Succinate Xl 25 Mg Tab PO 75 mg DAILY [facility] Administration Multivitamins 1 tab 07/27/20 09:00 07/30/20 09:48 Multivit, Therapeutic 1 Tab PO 1 tab DAILY [facility] Administration Pantoprazole Sodium 40 mg 07/26/20 09:00 07/30/20 09:49 Pantoprazole 40 Mg Tab PO 40 mg DAILY [facility] Administration Polyethylene Glycol 17 gm 07/27/20 09:00 07/30/20 09:50 Polyethylene Glycol 3350 17 Gm Packet PO 17 gm DAILY [facility] Administration Saccharomyces Boulardii 250 mg 07/26/20 09:00 07/30/20 09:49 Saccharomyces Boulardii 250 Mg Cap PO 250 mg DAILY [facility] Administration Sodium Chloride 10 ml 07/27/20 09:00 07/30/20 11:46 Flush - Normal Saline 10 Ml Syringe IVF Not Given Q12HR [facility] Tamsulosin HCl 0.4 mg 07/27/20 09:00 07/30/20 09:49 Tamsulosin Hcl 0.4 Mg Cap PO 0.4 mg DAILY [facility] Administration Zinc Sulfate 220 mg 07/26/20 09:00 07/30/20 09:49 Zinc Sulfate 220 Mg Cap PO 220 mg DAILY [facility] Administration - Exam General Appearance: NAD Respiratory: no wheezes, rales, rhonchi Gastrointestinal: soft, non-tender, normal bowel sounds Extremities: no cyanosis, no clubbing Neurological: no new deficit Hosp A/P - Plan Acute hypoxic respiratory failure due to COVID-19 pneumonia. S/p remdesivir and convalescent plasma New onset atrial fibrillation with rapid ventricular responsestarted on amiodarone drip on 07/27 Diabetes mellitus type 2 Hypertension Obesity with a BMI of 30.3 Cognitive dysfunction Hypomagnesemia Other issues per H&P Plan: Continue amiodarone loading. Continue anticoagulation. Patient converted to sinus rhythm. Increase Lantus to 30 units a.m. and 25 units p.m. Continue O2 supplementation. Inflammatory markers improving. Continue dexamethasone. Will probably discharge to assisted in a.m.
[2020-07-30] MEDS: Atorvastatin Calcium 20 MG TAB PO SCH (23:09)
[2020-07-30] MEDS: Apixaban 5 MG TAB PO SCH (23:10)
[2020-07-31 05:37] LABS: ALT (SGPT) 48 U/L (8-55); AST (SGOT) 21 U/L (5-34); Albumin 3.1 g/dL (3.4-4.8); Alkaline Phosphatase 86 U/L (40-110); Anion Gap 11 mmol/L (10-20); BUN (Urea Nitrogen) 17 mg/dL (8.4-25.7); Bilirubin, Total 0.3 mg/dL (0.2-1.2); Calc. Creatinine Clearance 116 mL/min (70-130); Calcium 8.1 mg/dL (7.8-10.44); Carbon Dioxide 25 mmol/L (23-31); Chloride 104 mmol/L (98-107); Estimated GFR-MDRD Greater than 90; Globulin 2.9 g/dL (2.4-3.5); Glucose 258 mg/dL (80-115); Potassium 4.3 mmol/L (3.5-5.1); Sodium 136 mmol/L (136-145)
[2020-07-31 05:56] LABS: Hemoglobin 12.2 g/dL (14.0-18.0); Mean Corpuscular HGB CONC 33.7 g/dL (32.0-36.0); Mean Corpuscular Hemoglobin 29.4 pg (27.0-31.0); Mean Corpuscular Volume 87.2 fL (78.0-98.0); Mean Platelet Volume 7.8 fL (7.4-10.4); Platelet Count 391 thou/uL (130-400); RBC Distribution Width 12.2 % (11.5-14.5); Red Blood Cell (RBC) Count 4.16 mill/uL (4.70-6.10); White Blood Cell (WBC) Count 17.6 thou/uL (4.8-10.8)
[2020-07-31] MEDS: HumaLOG 300 UNITS/3 ML VIAL SC PRN ×2 (06:08→12:15)
[2020-07-31 06:23] LABS: Band 4 % (5-11); Lymphocytes 3 % (21-51); MDiff Complete? YES; Monocytes 1 % (0-10); Neutrophil 92 % (42-75)
--- NOTE | 2020-07-31 08:13 | EKG ---
Test Reason : STAT Blood Pressure : / mmHG Vent. Rate : 116 BPM Atrial Rate : 117 BPM P-R Int : 000 ms QRS Dur : 082 ms QT Int : 328 ms P-R-T Axes : 000 -85 042 degrees QTc Int : 455 ms Atrial fibrillation with rapid ventricular response Left axis deviation Inferior infarct (cited on or before 08-MAY-2020) Anterior infarct , age undetermined Abnormal ECG When compared with ECG of 25-JUL-2020 08:22, (Unconfirmed) Atrial fibrillation has replaced Sinus rhythm Confirmed by ANA CEBALLOS ([id number]) on 07/31/2020 8:13:18 AM Referred By: RUFINO ORTIZ Confirmed By:ANA CEBALLOS
[2020-07-31] MEDS ORDERED: Insulin Glargine 30 UNITS in Pre-Filled Syringe 1 EACH SC SCH (09:00)
[2020-07-31] MEDS: Multivit, Therapeutic 1 TAB PO SCH (09:27)
[2020-07-31] MEDS: Aspirin 81 mg Enteric Coated Tablet PO SCH (09:27)
[2020-07-31] MEDS: Ascorbic Acid 500 mg Chewable Tablet PO SCH (09:27)
[2020-07-31] MEDS: guaiFENesin ER 600 MG TAB PO SCH (09:27)
[2020-07-31] MEDS: Cyanocobalamin (Vitamin B-12) 1,000 MCG TAB PO SCH (09:27)
[2020-07-31] MEDS: Apixaban 5 MG TAB PO SCH (09:27)
[2020-07-31] MEDS: Finasteride 5 MG TAB PO SCH (09:27)
[2020-07-31] MEDS: Loratadine 10 MG TAB PO SCH (09:27)
[2020-07-31] MEDS: Saccharomyces boulardii 250 MG CAP PO SCH (09:27)
[2020-07-31] MEDS: Amiodarone 200 MG TAB PO SCH (09:27)
[2020-07-31] MEDS: Tamsulosin HCl 0.4 MG CAP PO SCH (09:28)
[2020-07-31] MEDS: Dexamethasone 4 MG TAB PO SCH (09:28)
[2020-07-31] MEDS: Zinc Sulfate 220 MG CAP PO SCH (09:28)
[2020-07-31] MEDS: HYDROcodone/Acetaminophen 5/325 mg Tablet PO PRN (09:28)
[2020-07-31] MEDS: Polyethylene Glycol 3350 17 GM Packet PO SCH (09:29)
[2020-07-31 11:42] VITALS: TEMP 97.7
[2020-07-31 13:10] VITALS: BP 156/81
--- NOTE | 2020-07-31 18:51 | PDOC.DS.DS ---
Provider - Provider Date of Admission: 07/25/20 10:43 Date of Discharge: 07/31/20 Admitting Provider: Bella Sy MD Consultations: Infectious Disease Primary Care Physician: Aidan Forbes DO Course - Hospital Course Hospital Course: Patient is a 64-year-old male with diabetes mellitus type 2 and hypertension currently residing in a long-term presented to the hospital on 07/25 with chest discomfort along with shortness of breath. He was diagnosed with COVID-19 2 days prior to admission. In the emergency room he was tachycardic and required 3 L oxygen. He also had low-grade fever. Please refer to the history and physical for further details. The patient was admitted to the hospital with a diagnosis of acute respiratory failure due to COVID-19 pneumonia. He was monitored closely in the Covid unit. He was placed on supplemental oxygen with nebulizer treatment, dexamethasone 6 mg daily as well as remdesivir. He also received convalescent plasma. Overall his symptoms started to improve. Patient remained afebrile during this hospital stay. On the day of discharge he is requiring 1 to 2 L of oxygen. Patient developed new onset atrial fibrillation and was evaluated by cardiology service. He was started on amiodarone loading along with anticoagulation. He will continue amiodarone loading post discharge. Patient is currently in sinus rhythm. He understands the risk associated with anticoagulation. Patient also had intermittent hyperglycemia due to steroids requiring increasing insulin dose. Final diagnosis: Acute hypoxic respiratory failure/sepsis due to COVID-19 pneumoniaPOA. S/p remdesivir and convalescent plasma New onset atrial fibrillation with rapid ventricular responserequiring amiodarone loading. Diabetes mellitus type 2 Hypertension Hyperlipidemia Obesity with a BMI of 30.3 Cognitive dysfunction Hypomagnesemia/hypokalemia/hyponatremia Nausea/vomiting/diarrhea probably due to COVID-19resolved Resuscitation Status: 07/25/20 11:16 Resuscitation Status Routine Resuscitation Status: FULL: Full Resuscitation - Labs Lab Results: 07/31/20 05:01 07/31/20 05:01 Abnormal Lab Results - Last 48 hrs 07/30/20 04:48: Creatinine 0.55 L, ALT 56 H, Albumin 3.3 L, Albumin/Globulin Ratio 1.0 L 07/30/20 04:48: WBC 19.4 H, RBC 4.41 L, Hgb 13.0 L, Hct 38.3 L, Neutrophils % 89 .9 H, Lymphocytes % 4.8 L, Neutrophils # 17.4 H, Lymphocytes # 0.9 L, Monocytes # 1.0 H 07/31/20 05:01: Creatinine 0.63 L, Albumin 3.1 L, Albumin/Globulin Ratio 1.1 L 07/31/20 05:01: WBC 17.6 H, RBC 4.16 L, Hgb 12.2 L, Hct 36.3 L, Neutrophils % (Manual) 92 H, Band Neuts % (Manual) 4 L, Lymphocytes % (Manual) 3 L Microbiology - Entire Visit 07/25/20 08:33 Venous blood - Right Hand Blood Culture - Final NO GROWTH IN 5 DAYS 07/25/20 08:44 Venous blood - Left Arm Blood Culture - Final NO GROWTH IN 5 DAYS - Diagnostic Interpretation CT scan - chest Status: image reviewed by me Additional comments: IMPRESSION: 1. Multifocal groundglass opacities throughout the lungs bilaterally most compatible with viral pneum onitis such as Covid 19. 2. Diffuse circumferential thickening of the telles of the thoracic esophagus. This is nonspecific but may be related to esophagitis. 3. Suboptimal timing of the contrast bolus as well as respiratory motion limiting adequate evaluation for pulmonary embolus. While there is no central pulmonary embolus, a pulmonary embolus involving the segmental or subsegmental pulmonary arteries cannot be excluded based on this exam. 4. Reactive mediastinal lymphadenopathy. - Physical Exam Vitals: Vital Signs (12 hours) Temp Pulse Resp BP Pulse Ox 07/31/20 11:00 64 18 156/81 H 98 07/31/20 08:40 97.7 F 70 19 163/85 H 94 L Weight Weight 155 lb Physical Exam: The patient was evaluated on the day of discharge. In no significant respiratory distress. Appears comfortable on 2 L nasal cannula. Lungs showed similar rhonchi/rales. Heart S1-S2 present. Problem - Time spent with Patient (mins): 35 Plan - Discharge Medications Home Medications: Medication Instructions Recorded Confirmed Type Aspirin [Adult Low Dose Aspirin EC] 81 mg PO DAILY 02/16/15 07/25/20 History Calcium Carbonate [Tums] 1,000 mg PO Q3HR 02/16/15 07/25/20 History Loratadine [Claritin] 10 mg PO DAILY 02/16/15 07/25/20 History metFORMIN [Glucophage] 1,000 mg PO BID-WM #0 tab 12/26/15 07/25/20 Rx Multivit, Therapeutic [Theragran] 1 tab PO DAILY tab 11/20/16 07/25/20 Rx Tamsulosin HCl [Flomax] 0.4 mg PO DAILY cap 11/20/16 07/25/20 Rx Acetaminophen 500 mg PO Q4HR PRN 03/05/18 07/25/20 History Atorvastatin Calcium [Lipitor] 20 mg PO HS tab 03/08/18 07/25/20 Rx Ondansetron HCl [Zofran] 4 mg PO Q6HR PRN 09/30/18 07/25/20 History Famotidine [Pepcid] 20 mg PO DAILY 07/25/20 07/25/20 History Finasteride [Proscar] 5 mg PO DAILY 07/25/20 07/25/20 History Insulin Aspart [Novolog] 10 unit SQ TID 07/25/20 07/25/20 History Isosorbide Mononitrate [Isosorbide 30 mg PO DAILY 07/25/20 07/25/20 History Mononitrate ER] Mecobalamin [B12 Active] 500 mcg PO DAILY 07/25/20 07/25/20 History Metoprolol Succinate 75 mg PO DAILY 07/25/20 07/25/20 History Polyethylene Glycol 3350 [Miralax] 17 gm PO DAILY 07/25/20 07/25/20 History Albuterol Sulfate [Proventil Hfa] 2 puff INH Q6H PRN aer 07/31/20 Rx Amiodarone [Cordarone] 400 mg PO ASDIR tab 07/31/20 Rx Apixaban [Eliquis] 5 mg PO BID tab 07/31/20 Rx Ascorbic Acid [Vitamin C] 1,000 mg PO DAILY tab 07/31/20 Rx Dexamethasone [Decadron] 6 mg PO QAM-WM tab 07/31/20 Rx Insulin Glargine [Lantus Vial] 30 units SC BID vial 07/31/20 Rx Zinc Sulfate 220 mg PO DAILY cap 07/31/20 Rx guaiFENesin ER [Mucinex] 600 mg PO Q12HR tab 07/31/20 Rx Allergies: No Known Allergies Allergy (Verified 07/25/20 13:01) per patient - Discharge Instructions Discharge Instructions:: CXR after 4 weeks - Follow up Plan Referrals: Jake Prater MD [Active] - 10 Days Raphael Forbes DO [Primary Care Provider] - 7 Days Jovan Yun MD [Active] - 10 Days Disposition: [facility]F-WAY/ASSISTED LIVING Quality - Care Measures CORE MEASURES:: N/A
--- NOTE | 2020-08-03 05:48 | PQF ---
Dear : Liban Martinez Date 08/03/2020 Please exercise your independent, professional judgment in responding to the clarification form. Clinical indicators are provided on the bottom of this form for your review Can you please further clarify if Type 2 ME is ruled in or ruled out? Type 2 ME [ x ] Ruled in diagnosis [ ] Continue to treat [ x ] Resolved [ ] Ruled out diagnosis [ ] Improving [ ] Cannot rule out diagnosis [ ] Other diagnosis please specify [ ] Unable to determine Physician Signature: Date/Time: For continuity of documentation, please document condition throughout progress notes and discharge summary. Thank You. To be completed by CDI/Coding staff for physician review: Present Clinical Indicators - Signs / Symptoms / Labs Results and Location in Medical Record [ x ] ST segment normal, T waves normal ED Provider pg.3 [ x ] Indeterminate troponin H and P pg.1 [ x ] Type 2 myocardial infarction H and P pg.6 [ x ] Elevated troponin but most likely this is related with his pneumonia and likely due to demand ischemia secondary to hypoxia and pneumonia H and P pg.6 [ x ] Troponin: 0.031H, 0.040H, 0.043, 0.043H Laboratory Present Risk Factors Results and Location in Medical Record [ x ] Acute respiratory failure H and P pg.7 [ x ] Viral pneumonia H and P pg.7 [ x ] SIRS H and P pg.7 [ x ] Obesity Hospitalist PN pg.5 [ x ] HTN DS pg.1 [ x ] DM Hospitalist PN pg.5 [ x ] Afib Consult pg.2 Dr. Prater Present Treatments Results and Location in Medical Record [ x ] EKG ED Provider pg.3 [ x ] Aspirin 81mg IV MAR [ x ] IV Fluids MAR [ x ] Cardiology Consult Dr. Prater 07/26 [ x ] Electrocardiogram 07/25 CDS/Director Of Oncology Signature: Quincy Jean Phone #: ext [phone] Date 08/03/20 This is a permanent part of the Medical Record [facility]
--- NOTE | 2020-08-10 13:10 | EKG ---
Test Reason : Blood Pressure : / mmHG Vent. Rate : 113 BPM Atrial Rate : 113 BPM P-R Int : 192 ms QRS Dur : 078 ms QT Int : 314 ms P-R-T Axes : 000 -63 036 degrees QTc Int : 430 ms Sinus tachycardia with Premature atrial complexes Left axis deviation Inferior infarct , age undetermined Abnormal ECG Confirmed by RAGHAVENDRA SANFORD DO ([id number]), manager editorial ROCIO LAU ([id number]) on 08/10/2020 1:10:11 PM Referred By: Confirmed By:RAGHAVENDRA SANFORD DO
== END 2020-07-31 17:25 | DRG 871 ==
LOC: ERS 08:13 → ERHOLD 10:43 → 2SW 17:09
PROVIDERS: ADMIT Internal Medicine; ATTEND Internal Medicine
PROC: 8E0ZXY6 Isolation (ICD-10-PCS; principal; 2020-07-25)
PROC: XW033E5 Introduction of Remdesivir Anti-infective into Peripheral Vein, Percutaneous Approach, New Technology Group 5 (ICD-10-PCS; 2020-07-25)
PROC: XW13325 Transfusion of Convalescent Plasma (Nonautologous) into Peripheral Vein, Percutaneous Approach, New Technology Group 5 (ICD-10-PCS; 2020-07-26)
PROC: 3E02340 Introduction of Influenza Vaccine into Muscle, Percutaneous Approach (ICD-10-PCS; 2020-07-26)
DX: A41.89 Other specified sepsis (principal); U07.1 COVID-19; J12.89 Other viral pneumonia; J96.01 Acute respiratory failure with hypoxia; I21.A1 Myocardial infarction type 2; E87.1 Hypo-osmolality and hyponatremia; I48.4 Atypical atrial flutter; K59.00 Constipation, unspecified; I10 Essential (primary) hypertension; E78.5 Hyperlipidemia, unspecified; N40.0 Benign prostatic hyperplasia without lower urinary tract symptoms; K21.9 Gastro-esophageal reflux disease without esophagitis; K21.00 Gastro-esophageal reflux disease with esophagitis, without bleeding; I48.91 Unspecified atrial fibrillation; E66.9 Obesity, unspecified; G31.84 Mild cognitive impairment of uncertain or unknown etiology; E83.42 Hypomagnesemia; E87.6 Hypokalemia; Z79.4 Long term (current) use of insulin; Z79.899 Other long term (current) drug therapy; Z68.30 Body mass index [BMI] 30.0-30.9, adult; Z23 Encounter for immunization; E11.65 Type 2 diabetes mellitus with hyperglycemia; T38.0X5A Adverse effect of glucocorticoids and synthetic analogues, initial encounter
CPT/HCPCS: 36415; 36416; 36430; 71045; 71275; 80053; 81001; 82550; 82553; 82728; 83605; 83615; 83735; 84100; 84484; 85025; 85379; 86140; 86850; 86900; 86901; 87040; 87635; 93005; 93010; 96365; 96367; J0282; J0456; J0696; J1650; J1815; J2405; J3475; J7050; J7070; J8540; P9017; Q9967; U0003

== ENCOUNTER 2024-08-24 12:17 | Outpatient (CLI) | payer OTHER | END 2024-08-24 12:18 | disposition home or self-care (01) | LOC: ULT 12:17 | PROVIDERS: ATTEND Family Medicine | DX: R79.89 Other specified abnormal findings of blood chemistry (principal); E04.1 Nontoxic single thyroid nodule | CPT/HCPCS: 76536 ==

== ENCOUNTER 2024-10-12 13:38 | Emergency (ER) | payer OTHER ==
[2024-10-12] MEDS ORDERED: Iopamidol-370 76% 500 ML MDV (1 ML CHARGE) ONE (14:21)
[2024-10-12] MEDS ORDERED: Ondansetron PF 4 MG/2 ML Vial ONE (14:27)
[2024-10-12 14:43] LABS: #Basophils Less than 0.03 10x3/uL (0.0-0.2); %Basophils 0.2 % (0.0-1.0); %Lymphocytes 17.3 % (21.0-51.0); %Monocytes 9.6 % (0.0-10.0); %Neutrophils 65.7 % (42.0-75.0); Hematocrit 41.5 % (42.0-52.0); Hemoglobin 14.3 g/dL (14.0-18.0); Mean Corpuscular HGB CONC 34.5 g/dL (32.0-36.0); Mean Corpuscular Hemoglobin 30.4 pg (27.0-31.0); Mean Corpuscular Volume 88.3 fL (78.0-98.0); Mean Platelet Volume 10.2 fL (7.4-10.4); Platelet Count 345 10x3/uL (130-400)
[2024-10-12 14:57] LABS: ALT (SGPT) 25 U/L (8-55); AST (SGOT) 13 U/L (5-34); Albumin 3.6 g/dL (3.4-4.8); Alkaline Phosphatase 124 U/L (40-110); Anion Gap 15 mmol/L (10-20); BUN (Urea Nitrogen) 27 mg/dL (8.4-25.7); Bilirubin, Total 0.5 mg/dL (0.2-1.2); Calc. Creatinine Clearance 0 mL/min (70-130); Calcium 8.5 mg/dL (7.8-10.44); Carbon Dioxide 18 mmol/L (23-31); Chloride 110 mmol/L (98-107); Estimated GFR 103; Globulin 4.3 g/dL (2.4-3.5); Glucose 186 mg/dL (80-115); Lipase 24 U/L (8-78); Potassium 3.9 mmol/L (3.5-5.1); Protein, Total 7.9 g/dL (5.8-8.1); Sodium 139 mmol/L (136-145)
== END 2024-10-12 19:48 | disposition home or self-care (01) ==
LOC: ERS 13:38
DX: E86.0 Dehydration (principal); R00.0 Tachycardia, unspecified; R10.84 Generalized abdominal pain; E11.9 Type 2 diabetes mellitus without complications; I10 Essential (primary) hypertension; E78.5 Hyperlipidemia, unspecified
CPT/HCPCS: 71045; 74177; 83605; 83690; 83735; 83880; 87040; 93005; J2405; Q9967; 36415; 80053; 84443; 85025; 96374